=== PATIENT | female | born 1955 | race Caucasian/White ===

== ENCOUNTER 2017-09-13 07:41 | Day surgery (SDC) | payer MEDICARE, SELFPAY | END 2017-09-13 13:25 | disposition home or self-care (01) | PROVIDERS: Family Provider Family Medicine; Visit Provider Podiatrist | DX: S92.355K Nondisplaced fracture of fifth metatarsal bone, left foot, subsequent encounter for fracture with nonunion (principal) | CPT/HCPCS: 28322; 73620; 73630; 76000; 96375; C1713; J2405 ==

== ENCOUNTER 2017-09-28 11:11 | Outpatient (POV) | payer MEDICARE, SELFPAY | END 2017-09-28 13:50 | disposition home or self-care (01) | PROVIDERS: Visit Provider Podiatrist | DX: Z98.890 Other specified postprocedural states (principal) | CPT/HCPCS: 99024; 73630 ==

== ENCOUNTER → 2017-10-18 09:10 | Outpatient (CLI) | payer MEDICARE, SELFPAY ==
--- NOTE | 2017-10-18 | XR_ITS ---
XR foot LT min 3V HISTORY: Follow-up fracture/ORIF ITS.REASON: S/P LEFT 5TH ME WOODALL FX ORIF ORDERING PHYSICIAN: Abbey Dale DPM PATIENT AGE: 61 years COMPARISON: 09/28/2017 FINDINGS: The cast has been removed. There is good alignment of the transverse fifth metatarsal fracture stabilized by a longitudinal screw. There is some developing callus formation. Fracture line however is still visible. IMPRESSION: Healing fifth metatarsal fracture with good alignment status post ORIF
== END ==
PROVIDERS: PCP Nurse Practitioner; Visit Provider Podiatrist
DX: S92.355P Nondisplaced fracture of fifth metatarsal bone, left foot, subsequent encounter for fracture with malunion (principal)
CPT/HCPCS: 73630

== ENCOUNTER → 2017-11-06 10:43 | Outpatient (CLI) | payer MEDICARE, SELFPAY ==
[2017-11-06 11:09] LABS: Basophils % 0.4 % (0.1-2.0); Eosinophils # 0.1 K/mm3 (0.0-0.4); Eosinophils % 1.7 % (0.1-12.0); Hematocrit 35.3 % (37.0-47.0); Hemoglobin 11.5 g/dL (12.2-16.2); Lymphocytes # 0.9 K/mm3 (0.7-4.5); Lymphocytes % 16.9 K/mm3 (10-50); Mean Corpuscular HGB Conc 32.6 g/dL (31.8-35.4); Mean Corpuscular Hemoglobin 32.5 pg (27.0-31.2); Mean Corpuscular Volume 99.7 fl (81-99); Mean Platelet Volume 8.1 fl (7.4-10.4); Monocytes # 0.4 K/mm3 (0.1-1.0); Neutrophils % 73.1 % (37.0-80.0); Platelet Count 211 K/mm3 (142-424); Red Blood Count 3.54 M/mm3 (4.20-5.40); White Blood Count 5.4 K/mm3 (4.8-10.8)
[2017-11-06 12:30] LABS: Alanine Aminotransferase 72 U/L (12-78); Albumin Level 3.5 gm/dL (3.4-5.0); Albumin/Globulin Ratio 1.5 (1.1-1.8); Alkaline Phosphatase 96 U/L (46-116); Anion Gap 10.6 mEq/L (5-15); Aspartate Amino Transferase 58 U/L (15-37); Bilirubin,Total 0.4 mg/dL (0.2-1.0); Blood Urea Nitrogen 10 mg/dL (7-18); Calcium 8.3 mg/dL (8.5-10.1); Carbon Dioxide 26 mmol/L (21.0-32.0); Chloride 105 mmol/L (98-107); Creatinine,Serum 0.57 mg/dL (0.55-1.02); Estimated Glomerular Filt Rate 108 ml/min (>60); GFR (African American) 130 ML/MIN (>60); Globulin 2.4 gm/dl (1.3-3.2); Glucose 94 mg/dL (74-106); Potassium 4.6 mmoL/L (3.5-5.1); Sodium 137 mmol/L (136-145); Total Protein,Serum 5.9 gm/dL (6.4-8.2)
[2017-11-06 12:31] LABS: C-Reactive Protein < 0.2 mg/L (0.0-0.9)
[2017-11-06 12:57] LABS: Erythrocyte Sedimentation Rate 20 mm/hr (0-30)
== END ==
PROVIDERS: PCP Nurse Practitioner Family; Visit Provider Internal Medicine
DX: M06.09 Rheumatoid arthritis without rheumatoid factor, multiple sites (principal); Z79.899 Other long term (current) drug therapy
CPT/HCPCS: 36415; 80053; 85025; 85651; 86140

== ENCOUNTER → 2017-11-20 09:01 | Outpatient (CLI) | payer MEDICARE, SELFPAY ==
--- NOTE | 2017-11-20 09:30 | XR_ITS ---
XR foot LT min 3V HISTORY: Follow-up fracture/ORIF ITS.REASON: POST OP FX 3 MONTHS AGO, JURGEN'S FX ORDERING PHYSICIAN: Abbey Dale DPM PATIENT AGE: 61 years COMPARISON: 10/18/2017 FINDINGS: No change longitudinal fixation screw in the proximal aspect of the fifth metatarsal stabilizing transverse fracture at the base of the fifth metatarsal. There is developing callus formation with decrease prominence of the fracture line. Air is good alignment without displacement. IMPRESSION: Healing nondisplaced fracture status post ORIF fifth metatarsal
== END ==
PROVIDERS: Visit Provider Podiatrist
DX: Z98.890 Other specified postprocedural states (principal)
CPT/HCPCS: 73630

== ENCOUNTER 2017-11-28 10:00 | Outpatient (RCR) | payer MEDICARE, SELFPAY | END 2017-11-28 10:01 | disposition home or self-care (01) | LOC: PT 10:00 | PROVIDERS: PCP Nurse Practitioner; Visit Provider Orthopaedic Surgery | DX: M47.15 Other spondylosis with myelopathy, thoracolumbar region (principal) | CPT/HCPCS: 97010; 97012; 97014; 97035; 97110; 97140; 97162; G0283 ==

== ENCOUNTER 2017-11-28 10:30 | Outpatient (RCR) | payer MEDICARE, SELFPAY ==
--- NOTE | 2017-11-21 11:20 | HMH.PTOPEV ---
Rehab Outpatient Evaluation Rehab OP Evaluation Start: 11/21/17 11:08 Freq: Status: Active Protocol: Document 11/21/17 11:09 KENCECILE (Rec: 11/21/17 11:20 KELSIE [id number]) Electronically Signed By Stef Rosales PT 11/21/17 11:09 Outpatient Therapy Subjective History Subjective History This is the initial Physical Therapy evaluation for Kassandra Manning. Pt is a 61 y/o female referred to PT for c/o R sided ankle/Lower Leg pain. Pt reports pain in R ankle began insidiously ~ 1 month ago. Pt reports she had sx on L foot at end of and just came out of CAM walker earlier this week. Pt reports she is being seen by PT for R side Sciatic/lumbar radicular pain. Chief Complaint Pain Symptom Type Ache Throb Sharp Symptoms Relieved By Rest/Positioning Symptoms Aggravated By Standing Physical Activity Walking Prior Functional Limitations None Current Functional Limitations Housework Standing Recreation Activity Walking Stairs Symptom Description Constant and Continuous Ankle/Foot Eval Gait Observation General Gait Pattern Observation Antalgic Gait Assistive Device Ambulation Assistive Device None Palpation Tenderness right Ankle/Foot Palpation Findings Tenderness Ankle/Foot Palpation Overall Comment TTP along peroneal tnadon and muscle belly ATF TTP negative PTF TTP negative CF TTP negative Deltoid ligament TTP negative ROM Ankle/Foot ROM Reason Not Measured Within Functional Limits Accessory Movements Ankle Accessory Movements that Elicit Fibular Dorsal [place] Symptoms MMT right Ankle Dorsiflexion Strength Grade 4 Good Ankle Plantarflexion Strength Grade 4 Good Foot Eversion Strength Grade 4 Good Foot Inversion Strength Grade 4 Good Special Tests Ankle Anterior Drawer Test Negative Right Ankle Eversion Test Negative Right Ankle Inversion (supination) Test Positive Right Neuro tests normal sensation to monofilament Yes Outpatient Therapy Assessment Impairments Problems/Imp
== END 2017-11-28 10:31 | disposition home or self-care (01) ==
LOC: PT 10:30
PROVIDERS: PCP Podiatrist; Visit Provider Podiatrist
DX: Z98.890 Other specified postprocedural states (principal)
CPT/HCPCS: 97033; 97035; 97110

== ENCOUNTER → 2017-12-07 10:49 | Outpatient (CLI) | payer MEDICARE, SELFPAY ==
--- NOTE | 2017-12-07 10:53 | MM_ITS ---
MM Dig screening mamm BI w/CAD CAD Screening COMPARISON: Digital mammograms 03/24/2014 and 05/06/2015 INDICATION: There is a history of breast cancer in a patient maternal grandmother. TECHNIQUE: Standard CC and MLO images were obtained. R2 CAD reviewed. FINDINGS: The breasts are composed primarily of fat with moderate fibroglandular densities in the subareolar regions bilaterally. Again is a stable asymmetric density upper outer quadrant right breast. A couple of benign-appearing calcifications in each breast. There is no suspicious lesion and there are no suspicious microcalcifications. IMPRESSION: Fibrofatty parenchyma with no suspicious lesion seen recommend yearly follow-up BI-RADS Category: 2 Benign Finding(s) RECOMMENDED FOLLOW-UP: 1YR - 1 YEAR FOLLOW-UP (A letter has been sent to the patient regarding results of the study.)
== END ==
PROVIDERS: PCP Podiatrist; Visit Provider Nurse Practitioner
DX: Z12.31 Encounter for screening mammogram for malignant neoplasm of breast (principal)
CPT/HCPCS: 77067

== ENCOUNTER → 2018-01-15 09:10 | Outpatient (CLI) | payer MEDICARE, SELFPAY ==
--- NOTE | 2018-01-15 09:15 | XR_ITS ---
XR foot wt bearing LT 3V COMPARISON: Left foot 11/20/2017 HISTORY: Follow-up ORIF of fracture TECHNIQUE: AP lateral and oblique views FINDINGS: The threaded fixation screw is again seen traversing the linear nondisplaced fracture base of fifth metatarsal. Alignment is anatomic. There now appears be bony bridging of the fracture line at the lateral aspect of the fracture, the medial aspect of the fracture line still visible. Again noted is a slightly flat plantar arch. IMPRESSION: Interval additional healing of the fracture base fifth metatarsal
== END ==
PROVIDERS: Visit Provider Podiatrist
DX: Z98.890 Other specified postprocedural states (principal)
CPT/HCPCS: 73630

== ENCOUNTER → 2018-02-07 12:11 | Outpatient (CLI) | payer MEDICARE, SELFPAY ==
[2018-02-07 12:34] LABS: Basophils % 0.4 % (0.1-2.0); Eosinophils # 0.1 K/mm3 (0.0-0.4); Eosinophils % 1.5 % (0.1-12.0); Hematocrit 38.1 % (37.0-47.0); Hemoglobin 12.3 g/dL (12.2-16.2); Lymphocytes # 0.7 K/mm3 (0.7-4.5); Lymphocytes % 14.6 K/mm3 (10-50); Mean Corpuscular HGB Conc 32.2 g/dL (31.8-35.4); Mean Corpuscular Hemoglobin 32.5 pg (27.0-31.2); Monocytes # 0.4 K/mm3 (0.1-1.0); Monocytes % 7.7 % (1.7-9.3); Neutrophils # 3.8 K/mm3 (1.8-7.8); Neutrophils % 75.8 % (37.0-80.0); Platelet Count 223 K/mm3 (142-424); Red Blood Count 3.77 M/mm3 (4.20-5.40); Red Cell Distribution Width 13.6 % (11.5-17.5)
[2018-02-07 13:44] LABS: Erythrocyte Sedimentation Rate 37 mm/hr (0-30)
[2018-02-07 15:14] LABS: Alanine Aminotransferase 37 U/L (12-78); Albumin Level 3.6 gm/dL (3.4-5.0); Albumin/Globulin Ratio 1.3 (1.1-1.8); Alkaline Phosphatase 128 U/L (46-116); Aspartate Amino Transferase 29 U/L (15-37); Bilirubin,Total 0.3 mg/dL (0.2-1.0); Blood Urea Nitrogen 8 mg/dL (7-18); Calcium 8.7 mg/dL (8.5-10.1); Carbon Dioxide 28 mmol/L (21.0-32.0); Chloride 107 mmol/L (98-107); Creatinine,Serum 0.58 mg/dL (0.55-1.02); Estimated Glomerular Filt Rate 105 ml/min (>60); GFR (African American) 127 ML/MIN (>60); Globulin 2.7 gm/dl (1.3-3.2); Glucose 86 mg/dL (74-106); Sodium 144 mmol/L (136-145); Total Protein,Serum 6.3 gm/dL (6.4-8.2)
[2018-02-07 15:21] LABS: C-Reactive Protein < 0.2 mg/L (0.0-0.9)
== END ==
PROVIDERS: Visit Provider Internal Medicine
DX: M06.09 Rheumatoid arthritis without rheumatoid factor, multiple sites (principal); Z79.899 Other long term (current) drug therapy
CPT/HCPCS: 36415; 80053; 85025; 85651; 86140

== ENCOUNTER → 2018-03-01 13:21 | Outpatient (POV) | payer MEDICARE, SELFPAY | PROVIDERS: Visit Provider Neurological Surgery | DX: Z00.00 Encounter for general adult medical examination without abnormal findings (principal) ==

== ENCOUNTER → 2018-05-21 08:02 | Outpatient (CLI) | payer MEDICARE, SELFPAY ==
[2018-05-21 08:18] LABS: Basophils % 0.4 % (0.1-2.0); Eosinophils # 0.1 K/mm3 (0.0-0.4); Eosinophils % 1.6 % (0.1-12.0); Hematocrit 35.8 % (37.0-47.0); Hemoglobin 11.7 g/dL (12.2-16.2); Lymphocytes # 0.9 K/mm3 (0.7-4.5); Lymphocytes % 14.5 K/mm3 (10-50); Mean Corpuscular HGB Conc 32.6 g/dL (31.8-35.4); Mean Corpuscular Hemoglobin 30.9 pg (27.0-31.2); Mean Corpuscular Volume 94.6 fl (81-99); Mean Platelet Volume 8.1 fl (7.4-10.4); Monocytes # 0.4 K/mm3 (0.1-1.0); Monocytes % 5.8 % (1.7-9.3); Neutrophils # 4.9 K/mm3 (1.8-7.8); Neutrophils % 77.6 % (37.0-80.0); Platelet Count 218 K/mm3 (142-424); Red Blood Count 3.78 M/mm3 (4.20-5.40); Red Cell Distribution Width 14.4 % (11.5-17.5); White Blood Count 6.4 K/mm3 (4.8-10.8)
[2018-05-21 09:07] LABS: Alanine Aminotransferase 42 U/L (12-78); Albumin Level 3.3 gm/dL (3.4-5.0); Albumin/Globulin Ratio 1.1 (1.1-1.8); Alkaline Phosphatase 161 U/L (46-116); Anion Gap 11.5 mEq/L (5-15); Aspartate Amino Transferase 31 U/L (15-37); Bilirubin,Total 0.4 mg/dL (0.2-1.0); Blood Urea Nitrogen 9 mg/dL (7-18); C-Reactive Protein 1.2 mg/L (0.0-0.9); Calcium 8.8 mg/dL (8.5-10.1); Carbon Dioxide 25 mmol/L (21.0-32.0); Chloride 110 mmol/L (98-107); Estimated Glomerular Filt Rate 101 ml/min (>60); GFR (African American) 123 ML/MIN (>60); Globulin 2.9 gm/dl (1.3-3.2); Glucose 89 mg/dL (74-106); Potassium 3.5 mmoL/L (3.5-5.1); Sodium 143 mmol/L (136-145); Total Protein,Serum 6.2 gm/dL (6.4-8.2)
[2018-05-21 09:13] LABS: Erythrocyte Sedimentation Rate 71 mm/hr (0-30)
== END ==
PROVIDERS: Visit Provider Internal Medicine
DX: M06.09 Rheumatoid arthritis without rheumatoid factor, multiple sites (principal); Z79.899 Other long term (current) drug therapy
CPT/HCPCS: 36415; 80053; 85025; 85651; 86140

== ENCOUNTER → 2018-07-27 10:20 | Outpatient (CLI) | payer MEDICARE, SELFPAY ==
[2018-07-27 10:39] LABS: Basophils % 0.5 % (0.1-2.0); Eosinophils # 0.1 K/mm3 (0.0-0.4); Eosinophils % 1.3 % (0.1-12.0); Hematocrit 36.6 % (37.0-47.0); Hemoglobin 11.8 g/dL (12.2-16.2); Lymphocytes # 1.9 K/mm3 (0.7-4.5); Lymphocytes % 29.2 K/mm3 (10-50); Mean Corpuscular HGB Conc 32.2 g/dL (31.8-35.4); Mean Corpuscular Hemoglobin 29.7 pg (27.0-31.2); Mean Corpuscular Volume 92.4 fl (81-99); Monocytes # 0.3 K/mm3 (0.1-1.0); Monocytes % 5.1 % (1.7-9.3); Neutrophils # 4.2 K/mm3 (1.8-7.8); Neutrophils % 63.9 % (37.0-80.0); Platelet Count 257 K/mm3 (142-424); Red Blood Count 3.97 M/mm3 (4.20-5.40); Red Cell Distribution Width 16.7 % (11.5-17.5); White Blood Count 6.6 K/mm3 (4.8-10.8)
[2018-07-27 11:28] LABS: Alanine Aminotransferase 63 U/L (12-78); Albumin Level 3.7 gm/dL (3.4-5.0); Albumin/Globulin Ratio 1.3 (1.1-1.8); Alkaline Phosphatase 137 U/L (46-116); Anion Gap 8.4 mEq/L (5-15); Aspartate Amino Transferase 30 U/L (15-37); Bilirubin,Total 0.5 mg/dL (0.2-1.0); Blood Urea Nitrogen 11 mg/dL (7-18); Calcium 8.5 mg/dL (8.5-10.1); Carbon Dioxide 32 mmol/L (21.0-32.0); Chloride 101 mmol/L (98-107); Creatinine,Serum 0.59 mg/dL (0.55-1.02); Estimated Glomerular Filt Rate 103 ml/min (>60); GFR (African American) 125 ML/MIN (>60); Globulin 2.8 gm/dl (1.3-3.2); Glucose 99 mg/dL (74-106); Potassium 4.4 mmoL/L (3.5-5.1); Sodium 137 mmol/L (136-145); Total Protein,Serum 6.5 gm/dL (6.4-8.2)
[2018-07-27 11:31] LABS: C-Reactive Protein < 0.2 mg/L (0.0-0.9)
[2018-07-27 12:16] LABS: Erythrocyte Sedimentation Rate 26 mm/hr (0-30)
== END ==
PROVIDERS: PCP Nurse Practitioner; Visit Provider Internal Medicine
DX: Z79.899 Other long term (current) drug therapy (principal); M06.09 Rheumatoid arthritis without rheumatoid factor, multiple sites
CPT/HCPCS: 36415; 80053; 85025; 85651; 86140

== ENCOUNTER → 2018-10-29 09:21 | Outpatient (CLI) | payer MEDICARE, SELFPAY ==
[2018-10-29 09:36] LABS: Basophils % 0.4 % (0.1-2.0); Eosinophils # 0.1 K/mm3 (0.0-0.4); Eosinophils % 1.1 % (0.1-12.0); Hematocrit 37.1 % (37.0-47.0); Hemoglobin 11.8 g/dL (12.2-16.2); Lymphocytes # 0.9 K/mm3 (0.7-4.5); Lymphocytes % 20.7 % (10-50); Mean Corpuscular HGB Conc 31.9 g/dL (31.8-35.4); Mean Corpuscular Volume 100.5 fl (81-99); Monocytes # 0.3 K/mm3 (0.1-1.0); Monocytes % 6.1 % (1.7-9.3); Neutrophils # 3.1 K/mm3 (1.8-7.8); Neutrophils % 71.7 % (37.0-80.0); Platelet Count 250 K/mm3 (142-424); Red Blood Count 3.69 M/mm3 (4.20-5.40); Red Cell Distribution Width 15.2 % (11.5-17.5); White Blood Count 4.4 K/mm3 (4.8-10.8)
[2018-10-29 10:36] LABS: Alanine Aminotransferase 647 U/L (12-78); Albumin Level 3.7 gm/dL (3.4-5.0); Albumin/Globulin Ratio 1.3 (1.1-1.8); Alkaline Phosphatase 249 U/L (46-116); Anion Gap 12.9 mEq/L (5-15); Aspartate Amino Transferase 426 U/L (15-37); Bilirubin,Total 0.7 mg/dL (0.2-1.0); Blood Urea Nitrogen 12 mg/dL (7-18); C-Reactive Protein 1.5 mg/L (0.0-0.9); Calcium 8.6 mg/dL (8.5-10.1); Carbon Dioxide 30 mmol/L (21.0-32.0); Chloride 100 mmol/L (98-107); Creatinine,Serum 0.67 mg/dL (0.55-1.02); Estimated Glomerular Filt Rate 89 ml/min (>60); GFR (African American) 108 ML/MIN (>60); Globulin 2.9 gm/dl (1.3-3.2); Glucose 118 mg/dL (74-106); Potassium 3.9 mmoL/L (3.5-5.1); Sodium 139 mmol/L (136-145); Total Protein,Serum 6.6 gm/dL (6.4-8.2)
[2018-10-29 10:51] LABS: Erythrocyte Sedimentation Rate 41 mm/hr (0-30)
== END ==
PROVIDERS: Visit Provider Internal Medicine
DX: Z79.899 Other long term (current) drug therapy (principal); M06.9 Rheumatoid arthritis, unspecified
CPT/HCPCS: 36415; 80053; 85025; 85651; 86140

== ENCOUNTER → 2018-11-12 09:28 | Outpatient (CLI) | payer MEDICARE, SELFPAY ==
[2018-11-12 09:48] LABS: Basophils % 0.5 % (0.1-2.0); Eosinophils # 0.1 K/mm3 (0.0-0.4); Hematocrit 35.9 % (37.0-47.0); Hemoglobin 11.2 g/dL (12.2-16.2); Lymphocytes # 1.2 K/mm3 (0.7-4.5); Lymphocytes % 22.5 % (10-50); Mean Corpuscular HGB Conc 31.2 g/dL (31.8-35.4); Mean Corpuscular Hemoglobin 31.9 pg (27.0-31.2); Mean Corpuscular Volume 102.3 fl (81-99); Mean Platelet Volume 8.3 fl (7.4-10.4); Monocytes # 0.4 K/mm3 (0.1-1.0); Monocytes % 8.5 % (1.7-9.3); Neutrophils # 3.5 K/mm3 (1.8-7.8); Neutrophils % 66.4 % (37.0-80.0); Platelet Count 219 K/mm3 (142-424); Red Blood Count 3.51 M/mm3 (4.20-5.40); Red Cell Distribution Width 14.6 % (11.5-17.5); White Blood Count 5.2 K/mm3 (4.8-10.8)
[2018-11-12 10:35] LABS: Erythrocyte Sedimentation Rate 38 mm/hr (0-30)
[2018-11-12 10:56] LABS: Alanine Aminotransferase 48 U/L (12-78); Albumin Level 3.4 gm/dL (3.4-5.0); Albumin/Globulin Ratio 1.3 (1.1-1.8); Alkaline Phosphatase 157 U/L (46-116); Anion Gap 12.1 mEq/L (5-15); Aspartate Amino Transferase 25 U/L (15-37); Bilirubin,Total 0.4 mg/dL (0.2-1.0); Blood Urea Nitrogen 10 mg/dL (7-18); C-Reactive Protein 0.6 mg/L (0.0-0.9); Calcium 8.8 mg/dL (8.5-10.1); Carbon Dioxide 27 mmol/L (21.0-32.0); Chloride 99 mmol/L (98-107); Creatinine,Serum 0.57 mg/dL (0.55-1.02); Estimated Glomerular Filt Rate 107 ml/min (>60); GFR (African American) 130 ML/MIN (>60); Globulin 2.7 gm/dl (1.3-3.2); Glucose 92 mg/dL (74-106); Potassium 4.1 mmoL/L (3.5-5.1); Sodium 134 mmol/L (136-145); Total Protein,Serum 6.1 gm/dL (6.4-8.2)
== END ==
PROVIDERS: Visit Provider Internal Medicine
DX: R79.89 Other specified abnormal findings of blood chemistry (principal); Z79.899 Other long term (current) drug therapy
CPT/HCPCS: 36415; 80053; 85025; 85651; 86140

== ENCOUNTER → 2018-11-27 11:04 | Outpatient (POV) | payer MEDICARE, SELFPAY | PROVIDERS: Visit Provider Dermatology | DX: Z00.00 Encounter for general adult medical examination without abnormal findings (principal) ==

== ENCOUNTER → 2018-12-06 11:19 | Outpatient (CLI) | payer MEDICARE, SELFPAY ==
[2018-12-06 11:44] LABS: Basophils % 0.4 % (0.1-2.0); Eosinophils # 0.1 K/mm3 (0.0-0.4); Eosinophils % 1.3 % (0.1-12.0); Hematocrit 38.3 % (37.0-47.0); Hemoglobin 12.1 g/dL (12.2-16.2); Lymphocytes # 1.5 K/mm3 (0.7-4.5); Lymphocytes % 27.2 % (10-50); Mean Corpuscular HGB Conc 31.6 g/dL (31.8-35.4); Mean Corpuscular Hemoglobin 30.9 pg (27.0-31.2); Mean Corpuscular Volume 97.6 fl (81-99); Mean Platelet Volume 8.7 fl (7.4-10.4); Monocytes # 0.4 K/mm3 (0.1-1.0); Monocytes % 6.3 % (1.7-9.3); Neutrophils # 3.6 K/mm3 (1.8-7.8); Neutrophils % 64.7 % (37.0-80.0); Platelet Count 273 K/mm3 (142-424); Red Blood Count 3.93 M/mm3 (4.20-5.40); Red Cell Distribution Width 13.8 % (11.5-17.5); White Blood Count 5.6 K/mm3 (4.8-10.8)
[2018-12-06 13:05] LABS: Alanine Aminotransferase 19 U/L (12-78); Albumin Level 3.8 gm/dL (3.4-5.0); Albumin/Globulin Ratio 1.4 (1.1-1.8); Alkaline Phosphatase 123 U/L (46-116); Anion Gap 11.9 mEq/L (5-15); Aspartate Amino Transferase 13 U/L (15-37); Bilirubin,Total 0.4 mg/dL (0.2-1.0); Blood Urea Nitrogen 19 mg/dL (7-18); C-Reactive Protein 0.3 mg/L (0.0-0.9); Calcium 8.6 mg/dL (8.5-10.1); Carbon Dioxide 30 mmol/L (21.0-32.0); Chloride 100 mmol/L (98-107); Estimated Glomerular Filt Rate 63 ml/min (>60); GFR (African American) 77 ML/MIN (>60); Globulin 2.8 gm/dl (1.3-3.2); Glucose 95 mg/dL (74-106); Potassium 3.9 mmoL/L (3.5-5.1); Sodium 138 mmol/L (136-145); Total Protein,Serum 6.6 gm/dL (6.4-8.2)
[2018-12-06 13:58] LABS: Erythrocyte Sedimentation Rate 42 mm/hr (0-30)
== END ==
PROVIDERS: Visit Provider Internal Medicine
DX: M06.09 Rheumatoid arthritis without rheumatoid factor, multiple sites (principal); Z79.899 Other long term (current) drug therapy
CPT/HCPCS: 36415; 80053; 85025; 85651; 86140

== ENCOUNTER 2018-12-13 10:27 | Outpatient (RCR) | payer MEDICARE, SELFPAY | END 2018-12-13 10:30 | disposition home or self-care (01) | LOC: OT 10:27 | PROVIDERS: Visit Provider Orthopaedic Surgery | DX: M79.641 Pain in right hand (principal); M25.531 Pain in right wrist | CPT/HCPCS: 97763 ==

== ENCOUNTER → 2018-12-19 09:12 | Outpatient (CLI) | payer MEDICARE, SELFPAY ==
--- NOTE | 2018-12-19 09:17 | US_ITS ---
US abdomen limited History: Ordering Physician:Heraclio Huffman Patient Age: 62 years Comparison:None Findings: Pancreas:Poorly demonstrated due to overlying bowel gas and patient body habitus Liver:Unremarkable. No obvious mass or abnormal fluid collection. No ductal dilatation. There are scattered heterogeneous areas of slight increased echogenicity in the liver consistent with hepatic steatosis. There is appropriate direction of blood flow within a nondilated portal vein Right Kidney:Unremarkable. Normal size and echogenicity. No hydronephrosis Gallbladder:Postcholecystectomy changes. Common bile duct is slightly prominent at 7 mm but may be physiologic response related to the previous cholecystectomy. Impression: 1. Mild fatty liver. 2. Prior cholecystectomy
== END ==
PROVIDERS: PCP Nurse Practitioner; Visit Provider Internal Medicine
DX: K76.0 Fatty (change of) liver, not elsewhere classified (principal); R94.5 Abnormal results of liver function studies; Z79.899 Other long term (current) drug therapy
CPT/HCPCS: 76705

== ENCOUNTER → 2018-12-21 08:59 | Outpatient (CLI) | payer MEDICARE, SELFPAY ==
--- NOTE | 2018-12-21 09:01 | MM_ITS ---
MM Dig screening mamm BI w/CAD CAD Screening COMPARISON: Digital mammograms with CAD 12/07/2017 and 05/06/2015 INDICATION: There is a history of breast cancer patient maternal grandmother. TECHNIQUE: Standard CC and MLO images were obtained. R2 CAD reviewed. FINDINGS: The breasts are composed primarily of fat with mild/moderate fibroglandular densities in the subareolar regions bilaterally. Again noted is an asymmetric area of glandular tissue upper outer quadrant right breast. There is a benign-appearing calcification in each breast. There is no suspicious lesion and no suspicious microcalcifications. There is faint arterial calcification left breast. IMPRESSION: Fibrofatty parenchyma with no suspicious lesion seen BI-RADS Category: 2 Benign Finding(s) RECOMMENDED FOLLOW-UP: 1YR - 1 YEAR FOLLOW-UP (A letter has been sent to the patient regarding results of the study.)
== END ==
PROVIDERS: PCP Nurse Practitioner; Visit Provider Nurse Practitioner Obstetrics & Gynecology
DX: Z12.31 Encounter for screening mammogram for malignant neoplasm of breast (principal)
CPT/HCPCS: 77067

== ENCOUNTER → 2019-01-01 10:42 | Outpatient (CLI) | payer MEDICARE, SELFPAY ==
--- NOTE | 2019-01-01 10:44 | CA_ITS ---
PROCEDURE: 2-D M-mode and color Doppler study INDICATIONS FOR THE TEST: Chest pain COPD Heart Murmur Tobacco Smoking Palpitations Fatigue Syncope Edema+ Hypertension+Diabetes Mellitus Rheumatic Fever SOB NARANJO Obesity Hyperlipidemia+ Family History HD Additional History hx rheumatic fever PATIENT INFORMATION HEIGHT: 63 WEIGHT:271 GENDER: Female B/P:156/81 2-D/M-MODE INTERPRETATION: 2-D MEASUREMENTS OBSERVED VALUES IN CMS Right Ventricular Dimension (RVDd) 2.4 Interventricular Septum (Thickness)(IVsd) 1.0 Left Ventricular Internal Dimensions(LVIDd) 5.0 Left Ventricular Posterior Wall (Thickness)(LVPWd) 1.2 Aortic Root 2.8 Aortic Cusp Separation 2.3 Left Atrial Dimensions (LAD) 4.2 2D 1. Left atrium is mildly enlarged, left ventricle is normal size, mild concentric left ventricular hypertrophy, visually estimated ejection fraction of 55% with no regional wall motion abnormality. 2. The right atrium and right ventricle are qualitatively mildly enlarged with normal contractility. 3. The valve is minimally thickened and calcified. 4. The mitral and tricuspid valvular grossly normal. 5. The pulmonic valve is poorly visualized. 6. No significant pericardial effusion noted. DOPPLER INTERROGATION: Doppler interrogation of the aortic, mitral and tricuspid valvular presence of mild aortic, mild mitral and tricuspid regurgitation, tricuspid regurgitation jet velocity is inadequate for calculation of the right ventricular systolic pressure, grade 1 diastolic dysfunction seen with tissue Doppler evidence of raised left atrial pressure, inferior vena cava is mildly dilated without significant inspiratory collapse. CONCLUSION: 1. Mild biatrial enlargement, normal left ventricular size, mild concentric left ventricular hypertrophy visually estimated ejection fraction of 55% with no regional wall motion abnormality, grade 1 diastolic dysfunction seen with tissue Doppler evidence of raised left atrial pressure. 2. Mildly enlarged right ventricle with normal contractility. 3. Mild aortic, mild mitral and tricuspid regurgitation. Inferior vena cava is mildly dilated without significant inspiratory collapse.
--- NOTE | 2019-01-01 10:44 | NM_ITS ---
History and Indications: History of RI ,dysrhythmia, hypertension, hyperlipidemia family history, shortness of breath and syncope Procedure: Patient received 0.4 mg of intravenous Lexiscan, resting heart rate was 55 bpm resting blood pressure 142/77, with Lexiscan maximum heart rate achieved was 83 bpm which is less than 85% of the maximum predicted heart rate and a blood pressure was 157/77. With Lexiscan patient complained of shortness of breath Electrocardiogram: Resting electrocardiogram showed sinus bradycardia nonspecific ST-T changes, with Lexiscan there is less than 1.[address] segment depression noted from the baseline EKG. The EKG portion of the Lexiscan Myoview is nondiagnostic. Cardiac stress and resting SPECT images: Cardiac stress and the suspect images were obtained using technetium 99 Myoview 32.1 mCi stress and 10.7 mCi at rest. Gated SPECT further analysis of segmental wall motion and calculation of the ejection fraction also done. Cardiac stress and resting SPECT images show reversible ischemia involving the anteroseptal wall, computer derived ejection fraction is 62% with no regional wall motion abnormality, right ventricle is normal size and contractility. Conclusion: 1. The EKG portion of the Lexiscan Myoview is nondiagnostic. 2. Scintigraphic evidence of mild reversible ischemia involving the anteroseptal wall. Computer derived ejection fraction is 60% with no regional wall motion abnormality, right ventricle is normal size and contractility. 3. Abnormal Lexiscan Myoview study.
== END ==
PROVIDERS: PCP Nurse Practitioner; Visit Provider Internal Medicine
DX: R07.9 Chest pain, unspecified (principal)
CPT/HCPCS: 78452; 93017; 93306; A9502; J2785

== ENCOUNTER → 2019-02-11 14:38 | Outpatient (CLI) | payer MEDICARE, SELFPAY ==
[2019-02-11 15:35] LABS: Basophils % 0.5 % (0.1-2.0); Eosinophils % 0.1 % (0.1-12.0); Hematocrit 33.9 % (37.0-47.0); Lymphocytes # 1.3 K/mm3 (0.7-4.5); Lymphocytes % 26.6 % (10-50); Mean Corpuscular HGB Conc 32.3 g/dL (31.8-35.4); Mean Corpuscular Hemoglobin 29.4 pg (27.0-31.2); Mean Corpuscular Volume 90.8 fl (81-99); Mean Platelet Volume 7.5 fl (7.4-10.4); Monocytes # 0.3 K/mm3 (0.1-1.0); Monocytes % 5.2 % (1.7-9.3); Neutrophils # 3.2 K/mm3 (1.8-7.8); Neutrophils % 67.7 % (37.0-80.0); Platelet Count 216 K/mm3 (142-424); Red Blood Count 3.73 M/mm3 (4.20-5.40); Red Cell Distribution Width 13.8 % (11.5-17.5); White Blood Count 4.8 K/mm3 (4.8-10.8)
[2019-02-11 15:59] LABS: Alanine Aminotransferase 22 U/L (12-78); Albumin Level 3.6 gm/dL (3.4-5.0); Alkaline Phosphatase 90 U/L (46-116); Aspartate Amino Transferase 17 U/L (15-37); Bilirubin,Direct 0.1 mg/dL (0.0-0.2); Bilirubin,Indirect 0.4 mg/dL (0.0-0.9); Bilirubin,Total 0.5 mg/dL (0.2-1.0); Cholesterol 174 mg/dL (140-200); HDL Cholesterol 87 mg/dL (29-89); LDL Cholesterol 79 mg/dL (0-130); Total Protein,Serum 6.4 gm/dL (6.4-8.2); Triglycerides 38 mg/dL (30-200); VLDL Cholesterol 8 mg/dL (0-40)
[2019-02-11 16:00] LABS: Alanine Aminotransferase 22 U/L (12-78); Albumin Level 3.6 gm/dL (3.4-5.0); Albumin/Globulin Ratio 1.3 (1.1-1.8); Alkaline Phosphatase 90 U/L (46-116); Anion Gap 9.9 mEq/L (5-15); Aspartate Amino Transferase 15 U/L (15-37); Bilirubin,Total 0.5 mg/dL (0.2-1.0); Blood Urea Nitrogen 12 mg/dL (7-18); Calcium 8.4 mg/dL (8.5-10.1); Carbon Dioxide 28 mmol/L (21.0-32.0); Chloride 102 mmol/L (98-107); Creatinine,Serum 0.66 mg/dL (0.55-1.02); Estimated Glomerular Filt Rate 90 ml/min (>60); GFR (African American) 109 ML/MIN (>60); Globulin 2.7 gm/dl (1.3-3.2); Glucose 120 mg/dL (74-106); Potassium 3.9 mmoL/L (3.5-5.1); Sodium 136 mmol/L (136-145); Total Protein,Serum 6.3 gm/dL (6.4-8.2)
[2019-02-11 16:09] LABS: C-Reactive Protein < 0.2 mg/L (0.0-0.9)
[2019-02-11 16:39] LABS: Erythrocyte Sedimentation Rate 31 mm/hr (0-30)
== END ==
PROVIDERS: PCP Internal Medicine; Visit Provider Internal Medicine Cardiovascular Disease
DX: I20.9 Angina pectoris, unspecified (principal); E78.5 Hyperlipidemia, unspecified; I10 Essential (primary) hypertension; R60.9 Edema, unspecified
CPT/HCPCS: 36415; 80053; 80061; 80076; 85025; 85651; 86140

== ENCOUNTER → 2019-04-01 10:21 | Outpatient (CLI) | payer MEDICARE, SELFPAY ==
[2019-04-01 10:32] LABS: Basophils % 0.3 % (0.1-2.0); Hematocrit 33.3 % (37.0-47.0); Hemoglobin 10.6 g/dL (12.2-16.2); Lymphocytes # 0.9 K/mm3 (0.7-4.5); Lymphocytes % 18.7 % (10-50); Mean Corpuscular HGB Conc 31.9 g/dL (31.8-35.4); Mean Corpuscular Volume 87.8 fl (81-99); Mean Platelet Volume 8.3 fl (7.4-10.4); Monocytes # 0.3 K/mm3 (0.1-1.0); Monocytes % 6.5 % (1.7-9.3); Neutrophils # 3.7 K/mm3 (1.8-7.8); Neutrophils % 74.6 % (37.0-80.0); Platelet Count 220 K/mm3 (142-424); Red Blood Count 3.79 M/mm3 (4.20-5.40); Red Cell Distribution Width 14.2 % (11.5-17.5); White Blood Count 4.9 K/mm3 (4.8-10.8)
[2019-04-01 11:26] LABS: Erythrocyte Sedimentation Rate 52 mm/hr (0-30)
[2019-04-01 12:56] LABS: Chol/HDL Ratio 1.8 (1-3.5); Cholesterol 153 mg/dL (140-200); HDL Cholesterol 83 mg/dL (29-89); LDL Cholesterol 61 mg/dL (0-130); Triglycerides 44 mg/dL (30-200); VLDL Cholesterol 9 mg/dL (0-40)
[2019-04-01 12:57] LABS: Alanine Aminotransferase 19 U/L (12-78); Albumin Level 3.3 gm/dL (3.4-5.0); Albumin/Globulin Ratio 1.3 (1.1-1.8); Alkaline Phosphatase 83 U/L (46-116); Aspartate Amino Transferase 19 U/L (15-37); Bilirubin,Total 0.5 mg/dL (0.2-1.0); Blood Urea Nitrogen 9 mg/dL (7-18); Calcium 8.2 mg/dL (8.5-10.1); Carbon Dioxide 24 mmol/L (21.0-32.0); Chloride 104 mmol/L (98-107); Creatinine,Serum 0.62 mg/dL (0.55-1.02); Estimated Glomerular Filt Rate 97 ml/min (>60); GFR (African American) 118 ML/MIN (>60); Globulin 2.6 gm/dl (1.3-3.2); Glucose 91 mg/dL (74-106); Sodium 138 mmol/L (136-145); Total Protein,Serum 5.9 gm/dL (6.4-8.2)
[2019-04-01 12:58] LABS: C-Reactive Protein < 0.2 mg/L (0.0-0.9)
== END ==
PROVIDERS: Nurse Practitioner Family; Visit Provider Internal Medicine
DX: E78.2 Mixed hyperlipidemia (principal); Z79.899 Other long term (current) drug therapy
CPT/HCPCS: 36415; 80053; 80061; 85025; 85651; 86140

== ENCOUNTER → 2019-06-03 09:43 | Outpatient (CLI) | payer MEDICARE, SELFPAY ==
[2019-06-03 10:10] LABS: Basophils % 0.3 % (0.1-2.0); Hematocrit 35.2 % (37.0-47.0); Hemoglobin 11.3 g/dL (12.2-16.2); Lymphocytes % 21.7 % (10-50); Mean Corpuscular HGB Conc 32.1 g/dL (31.8-35.4); Mean Corpuscular Hemoglobin 30.2 pg (27.0-31.2); Mean Corpuscular Volume 94.1 fl (81-99); Mean Platelet Volume 7.8 fl (7.4-10.4); Monocytes # 0.3 K/mm3 (0.1-1.0); Monocytes % 7.3 % (1.7-9.3); Neutrophils # 3.2 K/mm3 (1.8-7.8); Neutrophils % 70.7 % (37.0-80.0); Platelet Count 258 K/mm3 (142-424); Red Blood Count 3.75 M/mm3 (4.20-5.40); Red Cell Distribution Width 14.8 % (11.5-17.5); White Blood Count 4.6 K/mm3 (4.8-10.8)
[2019-06-03 10:42] LABS: Erythrocyte Sedimentation Rate 47 mm/hr (0-30)
[2019-06-03 13:39] LABS: Alanine Aminotransferase 18 U/L (12-78); Albumin Level 3.3 gm/dL (3.4-5.0); Albumin/Globulin Ratio 1.3 (1.1-1.8); Alkaline Phosphatase 84 U/L (46-116); Anion Gap 13.2 mEq/L (5-15); Aspartate Amino Transferase 17 U/L (15-37); Bilirubin,Total 0.3 mg/dL (0.2-1.0); Blood Urea Nitrogen 13 mg/dL (7-18); Calcium 8.8 mg/dL (8.5-10.1); Carbon Dioxide 30 mmol/L (21.0-32.0); Chloride 107 mmol/L (98-107); Estimated Glomerular Filt Rate 85 ml/min (>60); GFR (African American) 102 ML/MIN (>60); Globulin 2.6 gm/dl (1.3-3.2); Glucose 87 mg/dL (74-106); Potassium 4.2 mmoL/L (3.5-5.1); Sodium 146 mmol/L (136-145); Total Protein,Serum 5.9 gm/dL (6.4-8.2)
[2019-06-03 13:44] LABS: C-Reactive Protein < 0.2 mg/dL (0.0-0.9)
[2019-06-03 17:57] LABS: Chol/HDL Ratio 1.8 (1-3.5); Cholesterol 153 mg/dL (140-200); HDL Cholesterol 83 mg/dL (29-89); LDL Cholesterol 64 mg/dL (0-130); Triglycerides 30 mg/dL (30-200); VLDL Cholesterol 6 mg/dL (0-40)
[2019-06-03 21:36] LABS: Bilirubin,Direct 0.1 mg/dL (0.0-0.2)
== END ==
PROVIDERS: Internal Medicine; Internal Medicine Cardiovascular Disease; Visit Provider Internal Medicine
DX: E78.5 Hyperlipidemia, unspecified (principal); I10 Essential (primary) hypertension; Z79.899 Other long term (current) drug therapy; M06.9 Rheumatoid arthritis, unspecified
CPT/HCPCS: 36415; 80053; 80061; 82248; 85025; 85651; 86140

== ENCOUNTER → 2019-07-16 09:32 | Outpatient (POV) | payer MEDICARE, SELFPAY | PROVIDERS: Visit Provider Dermatology | DX: Z00.00 Encounter for general adult medical examination without abnormal findings (principal) ==

== ENCOUNTER → 2019-08-26 09:12 | Outpatient (CLI) | payer MEDICARE, SELFPAY ==
[2019-08-26 09:52] LABS: Basophils % 0.3 % (0.1-2.0); Eosinophils % 0.2 % (0.1-12.0); Hematocrit 36.7 % (37.0-47.0); Hemoglobin 11.6 g/dL (12.2-16.2); Lymphocytes # 0.9 K/mm3 (0.7-4.5); Mean Corpuscular HGB Conc 31.8 g/dL (31.8-35.4); Mean Corpuscular Hemoglobin 31.1 pg (27.0-31.2); Mean Corpuscular Volume 97.9 fl (81-99); Mean Platelet Volume 8.3 fl (7.4-10.4); Monocytes # 0.4 K/mm3 (0.1-1.0); Monocytes % 7.4 % (1.7-9.3); Neutrophils % 75.1 % (37.0-80.0); Platelet Count 255 K/mm3 (142-424); Red Blood Count 3.75 M/mm3 (4.20-5.40); Red Cell Distribution Width 14.2 % (11.5-17.5); White Blood Count 5.3 K/mm3 (4.8-10.8)
[2019-08-26 10:27] LABS: Erythrocyte Sedimentation Rate 26 mm/hr (0-30)
[2019-08-26 10:45] LABS: Alanine Aminotransferase 18 U/L (12-78); Albumin Level 3.6 gm/dL (3.4-5.0); Albumin/Globulin Ratio 1.4 (1.1-1.8); Alkaline Phosphatase 79 U/L (46-116); Anion Gap 13.1 mEq/L (5-15); Aspartate Amino Transferase 21 U/L (15-37); Bilirubin,Total 0.4 mg/dL (0.2-1.0); Blood Urea Nitrogen 11 mg/dL (7-18); Calcium 8.5 mg/dL (8.5-10.1); Carbon Dioxide 26 mmol/L (21.0-32.0); Chloride 103 mmol/L (98-107); Creatinine,Serum 0.48 mg/dL (0.55-1.02); Estimated Glomerular Filt Rate 131 ml/min (>60); GFR (African American) 158 ML/MIN (>60); Globulin 2.6 gm/dl (1.3-3.2); Glucose 97 mg/dL (74-106); Potassium 4.1 mmoL/L (3.5-5.1); Sodium 138 mmol/L (136-145); Total Protein,Serum 6.2 gm/dL (6.4-8.2)
[2019-08-26 10:46] LABS: C-Reactive Protein < 0.2 mg/dL (0.0-0.9)
== END ==
PROVIDERS: Visit Provider Internal Medicine
DX: M06.09 Rheumatoid arthritis without rheumatoid factor, multiple sites (principal); Z79.899 Other long term (current) drug therapy
CPT/HCPCS: 36415; 80053; 85025; 85651; 86140

== ENCOUNTER → 2019-09-23 13:07 | Outpatient (CLI) | payer MEDICARE, SELFPAY ==
--- NOTE | 2019-09-23 13:16 | XR_ITS ---
PROCEDURE: XR FOOT WT BEARING RT 3V CLINICAL INDICATION: pain in right foot COMPARISON: FTL3 FOOT-LT-3 VIEWS from 09/28/2017 [id number] XR foot LT min 3V from 10/18/2017 [id number] XR foot LT min 3V from 11/20/2017 [id number] XR foot wt bearing LT 3V from 01/15/2018 FINDINGS: There is a nondisplaced transverse fracture involving the proximal shaft of the 5th metatarsal. There is mild diffuse osteopenia. Mild hallux valgus with bunion formation and mild osteoarthritis of the 1st MTP joint along with osteoarthritic change at the talonavicular and navicular cuneiform joint. Small calcaneal spurs present in there is ossification along the distal aspect of the Achilles tendon. IMPRESSION: Nondisplaced fracture proximal shaft 5th metatarsal Dictated by: John Stone MD 09/24/2019 12:38 Electronically signed by John Stone MD in [place] 09/24/2019 12:38
--- NOTE | 2019-09-23 15:56 | XR_ITS ---
PROCEDURE: XR CHEST 2V CLINICAL HISTORY: COUGH/CONGESTION COMPARISON: CTAC CTA-CHEST from 10/11/2014 CXR CHEST(2 VIEWS-NOT PORTABLE) from 03/10/2015 CXR CHEST(2 VIEWS-NOT PORTABLE) from 01/28/2016 CXR CHEST(2 VIEWS-NOT PORTABLE) from 09/05/2017 FINDINGS: The cardiomediastinal silhouette and pulmonary vascularity are within normal limits. The lungs are clear without infiltrates, suspicious nodules, or pleural effusions. No acute bony abnormalities. Postsurgical clips are again noted in the upper abdomen. IMPRESSION: No acute findings. Dictated by: Yobani Jones 09/23/2019 16:40 Electronically signed by Yobani Jones in [place] 09/23/2019 16:40
[2019-09-23 16:55] LABS: Basophils % 0.5 % (0.1-2.0); Eosinophils % 0.2 % (0.1-12.0); Hematocrit 37.3 % (37.0-47.0); Hemoglobin 11.8 g/dL (12.2-16.2); Lymphocytes # 1.4 K/mm3 (0.7-4.5); Lymphocytes % 24.1 % (10-50); Mean Corpuscular HGB Conc 31.7 g/dL (31.8-35.4); Mean Corpuscular Hemoglobin 31.3 pg (27.0-31.2); Mean Corpuscular Volume 98.8 fl (81-99); Mean Platelet Volume 7.9 fl (7.4-10.4); Monocytes # 0.4 K/mm3 (0.1-1.0); Monocytes % 7.5 % (1.7-9.3); Neutrophils # 3.9 K/mm3 (1.8-7.8); Neutrophils % 67.7 % (37.0-80.0); Platelet Count 241 K/mm3 (142-424); Red Blood Count 3.78 M/mm3 (4.20-5.40); Red Cell Distribution Width 13.9 % (11.5-17.5); White Blood Count 5.8 K/mm3 (4.8-10.8)
--- NOTE | 2019-09-23 16:55 | ECG_ITS ---
APPROVED REPORT Exam: Resting ECG HR:59 bpm ECG Measurements Heart Rate 59 AXES SC 162 P 45 QRSd 112 QRS -5 QT 414 T 31 QTc 409 <Conclusion> Sinus bradycardia Otherwise normal ECG Electronically signed by : Jun Hendrickson, 09/24/2019 17:39:34
[2019-09-23 19:09] LABS: Alanine Aminotransferase 12 U/L (12-78); Albumin Level 3.6 gm/dL (3.4-5.0); Albumin/Globulin Ratio 1.3 (1.1-1.8); Alkaline Phosphatase 86 U/L (46-116); Anion Gap 14.2 mEq/L (5-15); Aspartate Amino Transferase 15 U/L (15-37); Bilirubin,Total 0.3 mg/dL (0.2-1.0); Blood Urea Nitrogen 15 mg/dL (7-18); Calcium 8.7 mg/dL (8.5-10.1); Carbon Dioxide 27 mmol/L (21.0-32.0); Chloride 103 mmol/L (98-107); Creatinine,Serum 0.61 mg/dL (0.55-1.02); Estimated Glomerular Filt Rate 99 ml/min (>60); GFR (African American) 120 ML/MIN (>60); Globulin 2.7 gm/dl (1.3-3.2); Glucose 90 mg/dL (74-106); Potassium 4.2 mmoL/L (3.5-5.1); Sodium 140 mmol/L (136-145); Total Protein,Serum 6.3 gm/dL (6.4-8.2)
[2019-09-25 15:30] LABS: Vitamin D 25 Hydroxy 45.7 ng/mL (30.0-100.0)
== END ==
PROVIDERS: PCP Family Medicine; Visit Provider Podiatrist
DX: M79.671 Pain in right foot (principal); Z01.818 Encounter for other preprocedural examination
CPT/HCPCS: 36415; 71046; 73630; 80053; 82652; 85025; 93005

== ENCOUNTER → 2019-10-08 08:19 | Outpatient (CLI) | payer MEDICARE, SELFPAY ==
--- NOTE | 2019-10-08 08:23 | XR_ITS ---
PROCEDURE: XR FOOT WT BEARING RT 3V CLINICAL INDICATION: post-op COMPARISON: [id number] XR foot LT min 3V from 11/20/2017 [id number] XR foot wt bearing LT 3V from 01/15/2018 XR FOOT WT BEARING RT 3V from 09/23/2019 XR FOOT RT MIN 3V from 09/26/2019 FINDINGS: The appearance of the fracture site of the proximal 5th metatarsal bone and orientation of the fixation screw remains stable. There is no definite callus formation and there is no abnormal angulation. The remainder of the exam is unchanged. IMPRESSION: No significant change. Dictated by: Santosh Daniel 10/08/2019 09:03 Electronically signed by Santosh Daniel in [place] 10/08/2019 09:03
--- NOTE | 2019-10-08 08:23 | XR_ITS ---
PROCEDURE: XR FOOT WT BEARING LT 3V CLINICAL INDICATION: Pain COMPARISON: [id number] XR foot LT min 3V from 11/20/2017 [id number] XR foot wt bearing LT 3V from 01/15/2018 XR FOOT WT BEARING RT 3V from 09/23/2019 XR FOOT RT MIN 3V from 09/26/2019 FINDINGS: The splint device has been removed. The appearance of the fixation screw involving the 5th metatarsal bone remains stable. Lateral view shows 2 millimeter plantar calcaneal spur. There is no acute fracture. Soft tissues are unremarkable. IMPRESSION: No acute findings. Dictated by: Santosh Daniel 10/08/2019 09:02 Electronically signed by Santosh Daniel in [place] 10/08/2019 09:02
== END ==
PROVIDERS: PCP Nurse Practitioner; Visit Provider Podiatrist
DX: Z98.890 Other specified postprocedural states (principal); M79.671 Pain in right foot
CPT/HCPCS: 73630

== ENCOUNTER → 2019-10-29 14:12 | Outpatient (CLI) | payer MEDICARE, SELFPAY ==
--- NOTE | 2019-10-29 14:18 | XR_ITS ---
PROCEDURE: XR FOOT WT BEARING RT 3V CLINICAL INDICATION: post-op Follow-up surgery COMPARISON: 10/08/2019 FINDINGS: The exam is a CT obtained through a air cast. Longitudinal screw remains present at the base of the 5th metatarsal stabilizing the nondisplaced fracture. No callus formation evident. Incidental note made of osteoarthritic change 1st MTP joint and navicular cuneiform joint and talonavicular joint. IMPRESSION: No change status post ORIF 5th metatarsal fracture with good alignment Dictated by: John Stone MD 10/29/2019 15:12 Electronically signed by John Stone MD in [place] 10/29/2019 15:12
== END ==
PROVIDERS: PCP Nurse Practitioner; Visit Provider Podiatrist
DX: Z98.890 Other specified postprocedural states (principal); S99.191D Other physeal fracture of right metatarsal, subsequent encounter for fracture with routine healing
CPT/HCPCS: 73630

== ENCOUNTER → 2019-11-12 12:14 | Outpatient (CLI) | payer MEDICARE, SELFPAY ==
--- NOTE | 2019-11-12 12:20 | XR_ITS ---
PROCEDURE: XR FOOT WT BEARING RT 3V CLINICAL INDICATION: post-op Follow-up fracture/ORIF COMPARISON: XR FOOT RT MIN 3V from 09/26/2019 XR FOOT WT BEARING RT 3V from 10/08/2019 XR FOOT WT BEARING LT 3V from 10/08/2019 XR FOOT WT BEARING RT 3V from 10/29/2019 FINDINGS: The air splint has been removed. There is a longitudinal screw through the proximal aspect of the 5th metatarsal stabilizing a nondisplaced fracture. No bony union evident at this time. There remains good alignment. There is mild pes planus. Soft tissue calcification is present along the Achilles tendon distally. There are mild degenerative changes of the posterior subtalar joint, talonavicular joint, and navicular cuneiform joint. Mild osteoarthritis also noted at the 1st MTP joint. IMPRESSION: 1. Good alignment status post ORIF 5th metatarsal fracture. Fracture line is still visible. 2. Degenerative changes Dictated by: John Stone MD 11/12/2019 14:45 Electronically signed by John Stone MD in [place] 11/12/2019 14:45
== END ==
PROVIDERS: PCP Nurse Practitioner; Visit Provider Podiatrist
DX: Z98.890 Other specified postprocedural states (principal); S99.191A Other physeal fracture of right metatarsal, initial encounter for closed fracture
CPT/HCPCS: 73630

== ENCOUNTER → 2019-11-18 10:57 | Outpatient (CLI) | payer MEDICARE, SELFPAY ==
[2019-11-18 11:30] LABS: Basophils % 0.3 % (0.1-2.0); Hematocrit 36.7 % (37.0-47.0); Hemoglobin 11.9 g/dL (12.2-16.2); Lymphocytes # 0.8 K/mm3 (0.7-4.5); Mean Corpuscular HGB Conc 32.3 g/dL (31.8-35.4); Mean Corpuscular Hemoglobin 30.8 pg (27.0-31.2); Mean Corpuscular Volume 95.4 fl (81-99); Mean Platelet Volume 8.2 fl (7.4-10.4); Monocytes # 0.3 K/mm3 (0.1-1.0); Monocytes % 6.3 % (1.7-9.3); Neutrophils # 3.3 K/mm3 (1.8-7.8); Neutrophils % 75.4 % (37.0-80.0); Platelet Count 219 K/mm3 (142-424); Red Blood Count 3.84 M/mm3 (4.20-5.40); Red Cell Distribution Width 13.3 % (11.5-17.5); White Blood Count 4.3 K/mm3 (4.8-10.8)
[2019-11-18 11:56] LABS: Erythrocyte Sedimentation Rate 28 mm/hr (0-30)
[2019-11-18 21:19] LABS: Alanine Aminotransferase 18 U/L (12-78); Albumin Level 3.6 gm/dL (3.4-5.0); Albumin/Globulin Ratio 1.5 (1.1-1.8); Alkaline Phosphatase 85 U/L (46-116); Anion Gap 14.3 mEq/L (5-15); Aspartate Amino Transferase 17 U/L (15-37); Bilirubin,Total 0.4 mg/dL (0.2-1.0); Blood Urea Nitrogen 10 mg/dL (7-18); Calcium 8.2 mg/dL (8.5-10.1); Carbon Dioxide 26 mmol/L (21.0-32.0); Chloride 105 mmol/L (98-107); Chol/HDL Ratio 2.6 (1-3.5); Cholesterol 228 mg/dL (140-200); Creatinine,Serum 0.75 mg/dL (0.55-1.02); Estimated Glomerular Filt Rate 78 ml/min (>60); GFR (African American) 94 ML/MIN (>60); Globulin 2.4 gm/dl (1.3-3.2); Glucose 93 mg/dL (74-106); HDL Cholesterol 88 mg/dL (29-89); LDL Cholesterol 128 mg/dL (0-130); Potassium 4.3 mmoL/L (3.5-5.1); Sodium 141 mmol/L (136-145); Triglycerides 62 mg/dL (30-200); VLDL Cholesterol 12 mg/dL (0-40)
[2019-11-18 21:23] LABS: C-Reactive Protein < 0.2 mg/dL (0.0-0.9)
[2019-11-19 14:01] LABS: Vitamin D 25 Hydroxy 58.6 ng/mL (30.0-100.0)
[2019-11-19 15:28] LABS: Parathyroid Hormone Intact 78 pg/mL (15-65)
[2019-11-22 16:57] LABS: N-Telopeptide Cross-linked 7.7 nmol BCE/L (6.2-19.0)
== END ==
PROVIDERS: Visit Provider Nurse Practitioner Women's Health
DX: E55.9 Vitamin D deficiency, unspecified (principal); M06.09 Rheumatoid arthritis without rheumatoid factor, multiple sites; M81.0 Age-related osteoporosis without current pathological fracture; Z13.220 Encounter for screening for lipoid disorders; Z79.899 Other long term (current) drug therapy
CPT/HCPCS: 36415; 80053; 80061; 82523; 82652; 83970; 85025; 85651; 86140

== ENCOUNTER → 2019-12-02 14:59 | Outpatient (CLI) | payer MEDICARE, SELFPAY ==
--- NOTE | 2019-12-02 15:04 | XR_ITS ---
PROCEDURE: XR FOOT WT BEARING RT 3V CLINICAL INDICATION: postop views COMPARISON: XR FOOT WT BEARING RT 3V from 10/08/2019 XR FOOT WT BEARING LT 3V from 10/08/2019 XR FOOT WT BEARING RT 3V from 10/29/2019 XR FOOT WT BEARING RT 3V from 11/12/2019 FINDINGS: A reduction screw has been placed longitudinally through the proximal 5th metatarsal for reduction of fracture. There is near anatomical positioning. Residual fracture line is still noted without significant callus formation of healing. There is diffuse demineralization. There is moderate osteoarthritis at the 1st metatarsophalangeal joint and at the Lisfranc joint and joints of tarsals of the midfoot and the calcaneocuboid joint. Degenerative plantar calcaneal spurring is noted. Dystrophic calcification is seen in the region of the Achilles tendon at its calcaneal attachment site. IMPRESSION: Continued anatomical positioning at site of fracture of proximal 5th metatarsal but without significant callus formation of healing. Dictated by: Yobani Jones 12/02/2019 17:29 Electronically signed by Yobani Jones in [place] 12/02/2019 17:29
== END ==
PROVIDERS: PCP Nurse Practitioner; Visit Provider Podiatrist
DX: S99.191G Other physeal fracture of right metatarsal, subsequent encounter for fracture with delayed healing (principal); M19.071 Primary osteoarthritis, right ankle and foot; Z98.890 Other specified postprocedural states
CPT/HCPCS: 73630

== ENCOUNTER → 2019-12-30 07:50 | Outpatient (CLI) | payer MEDICARE, SELFPAY ==
--- NOTE | 2019-12-30 07:54 | XR_ITS ---
PROCEDURE: XR FOOT WT BEARING RT 3V CLINICAL INDICATION: post-op Pain and swelling, postop, fracture follow-up COMPARISON: XR FOOT WT BEARING RT 3V from 09/23/2019 XR FOOT WT BEARING RT 3V from 10/08/2019 XR FOOT WT BEARING RT 3V from 10/29/2019 XR FOOT WT BEARING RT 3V from 11/12/2019 XR FOOT WT BEARING RT 3V from 12/02/2019 FINDINGS: Longitudinal screw remains in place stabilizing the proximal fracture of the 5th metatarsal. Fracture line is still visible not significantly changed. There is good alignment. Degenerative changes are present in the midfoot at the talonavicular and navicular cuneiform junction and 1st metatarsophalangeal junction. Other findings:None. IMPRESSION: No change good alignment status post ORIF 5th metatarsal fracture Dictated by: John Stone MD 12/30/2019 10:00 Electronically signed by John Stone MD in [place] 12/30/2019 10:00
== END ==
PROVIDERS: PCP Nurse Practitioner; Visit Provider Podiatrist
DX: Z98.890 Other specified postprocedural states (principal); S99.191K Other physeal fracture of right metatarsal, subsequent encounter for fracture with nonunion; S92.354K Nondisplaced fracture of fifth metatarsal bone, right foot, subsequent encounter for fracture with nonunion
CPT/HCPCS: 73630

== ENCOUNTER → 2020-04-09 07:54 | Outpatient (CLI) | payer MEDICARE, SELFPAY ==
[2020-04-09 09:00] LABS: Basophils % 0.2 % (0.1-2.0); Eosinophils % 0.2 % (0.1-12.0); Hematocrit 33.7 % (37.0-47.0); Hemoglobin 11.5 g/dL (12.2-16.2); Lymphocytes # 1.1 K/mm3 (0.7-4.5); Lymphocytes % 22.4 % (10-50); Mean Corpuscular HGB Conc 34.2 g/dL (31.8-35.4); Mean Corpuscular Hemoglobin 32.5 pg (27.0-31.2); Mean Corpuscular Volume 95.3 fl (81-99); Mean Platelet Volume 7.7 fl (7.4-10.4); Monocytes # 0.4 K/mm3 (0.1-1.0); Monocytes % 6.9 % (1.7-9.3); Neutrophils # 3.6 K/mm3 (1.8-7.8); Neutrophils % 70.3 % (37.0-80.0); Platelet Count 238 K/mm3 (142-424); Red Blood Count 3.54 M/mm3 (4.20-5.40); White Blood Count 5.1 K/mm3 (4.8-10.8)
[2020-04-09 09:53] LABS: Chloride 107 mmol/L (98-107); Potassium 4.3 mmoL/L (3.5-5.1); Sodium 138 mmol/L (136-145)
[2020-04-09 09:55] LABS: Alanine Aminotransferase 15 U/L (12-78); Aspartate Amino Transferase 32 U/L (14-36); Blood Urea Nitrogen 18 mg/dl (7-17); Estimated Glomerular Filt Rate 84 ml/min (>60); GFR (African American) 102 ML/MIN (>60)
[2020-04-09 09:56] LABS: Albumin Level 3.8 g/dl (3.5-5.0); Albumin/Globulin Ratio 1.7 (1.1-1.8); Alkaline Phosphatase 71 U/L (38-126); Anion Gap 7.3 mEq/L (5-15); Bilirubin,Total 0.4 mg/dl (0.2-1.3); Calcium 8.4 mg/dl (8.4-10.2); Carbon Dioxide 28 mmol/L (22.0-30.0); Chol/HDL Ratio 2.3 (1-3.5); Cholesterol 191 mg/dl (140-200); Globulin 2.2 g/dL (1.3-3.2); Glucose 97 mg/dl (74-100); HDL Cholesterol 84 mg/dl (40-60); Triglycerides 64 mg/dl (30-150); VLDL Cholesterol 13 mg/dL (0-40)
[2020-04-09 10:02] LABS: C-Reactive Protein 2.1 mg/L (0-4)
[2020-04-09 10:07] LABS: Direct LDL Cholesterol 94.43 mg/dL (100-129)
[2020-04-09 11:01] LABS: Intact Parathyroid Hormone 158.5 pg/mL (7.5-53.5)
[2020-04-09 11:06] LABS: 25-OH Vitamin D, Total 81.3 ng/mL (30-100)
[2020-04-09 11:44] LABS: Erythrocyte Sedimentation Rate 40 mm/hr (0-30)
[2020-04-09 15:09] LABS: T4 (Thyroxine) 6.9 ug/dl (5.53-11.0)
[2020-04-09 15:10] LABS: Free T4 (Free Thyroxine) 0.87 ng/dl (0.78-2.19)
[2020-04-09 15:23] LABS: Thyroid Stimulating Hormone 2.05 uIU/mL (0.465-4.68)
== END ==
PROVIDERS: Visit Provider Nurse Practitioner
DX: M06.09 Rheumatoid arthritis without rheumatoid factor, multiple sites (principal); M81.0 Age-related osteoporosis without current pathological fracture; E55.9 Vitamin D deficiency, unspecified; Z13.220 Encounter for screening for lipoid disorders; Z79.899 Other long term (current) drug therapy
CPT/HCPCS: 36415; 80053; 80061; 82306; 82523; 83970; 84436; 84439; 84443; 85025; 85651; 86140

== ENCOUNTER → 2020-07-23 12:30 | Outpatient (CLI) | payer MEDICARE, SELFPAY ==
[2020-07-23 13:08] LABS: Basophils % 0.4 % (0.1-2.0); Eosinophils % 0.1 % (0.1-12.0); Hematocrit 38.9 % (37.0-47.0); Hemoglobin 12.3 g/dL (12.2-16.2); Lymphocytes % 16.9 % (10-50); Mean Corpuscular HGB Conc 31.7 g/dL (31.8-35.4); Mean Corpuscular Hemoglobin 30.3 pg (27.0-31.2); Mean Corpuscular Volume 95.6 fl (81-99); Monocytes # 0.3 K/mm3 (0.1-1.0); Monocytes % 5.6 % (1.7-9.3); Neutrophils # 4.4 K/mm3 (1.8-7.8); Neutrophils % 76.9 % (37.0-80.0); Platelet Count 257 K/mm3 (142-424); Red Blood Count 4.07 M/mm3 (4.20-5.40); Red Cell Distribution Width 14.2 % (11.5-17.5); White Blood Count 5.7 K/mm3 (4.8-10.8)
[2020-07-23 13:38] LABS: Erythrocyte Sedimentation Rate 35 mm/hr (0-30)
[2020-07-23 15:40] LABS: Alanine Aminotransferase 14 U/L (12-78); Albumin Level 4.2 g/dl (3.5-5.0); Albumin/Globulin Ratio 1.8 (1.1-1.8); Alkaline Phosphatase 98 U/L (38-126); Anion Gap 12.3 mEq/L (5-15); Aspartate Amino Transferase 26 U/L (14-36); Bilirubin,Total 0.5 mg/dl (0.2-1.3); Blood Urea Nitrogen 26 mg/dl (7-17); Calcium 9.8 mg/dl (8.4-10.2); Carbon Dioxide 25 mmol/L (22.0-30.0); Chloride 104 mmol/L (98-107); Estimated Glomerular Filt Rate 72 ml/min (>60); GFR (African American) 87 ML/MIN (>60); Globulin 2.4 g/dL (1.3-3.2); Glucose 122 mg/dl (74-100); Potassium 4.3 mmoL/L (3.5-5.1); Sodium 137 mmol/L (136-145); Total Protein,Serum 6.6 g/dl (6.3-8.2)
[2020-07-23 15:46] LABS: C-Reactive Protein 11.4 mg/L (0-4)
[2020-07-23 15:54] LABS: Intact Parathyroid Hormone 36.4 pg/mL (7.5-53.5)
[2020-07-23 15:57] LABS: 25-OH Vitamin D, Total 69.9 ng/mL (30-100)
[2020-07-23 15:58] LABS: T4 (Thyroxine) 6.4 ug/dl (5.53-11.0)
[2020-07-23 16:01] LABS: Free T4 (Free Thyroxine) 0.85 ng/dl (0.78-2.19)
[2020-07-23 16:12] LABS: Thyroid Stimulating Hormone 1.11 uIU/mL (0.465-4.68)
[2020-07-23 16:46] LABS: Vitamin B12 253 pg/mL (239-931)
== END ==
PROVIDERS: Visit Provider Nurse Practitioner Women's Health
DX: M06.09 Rheumatoid arthritis without rheumatoid factor, multiple sites (principal); M81.0 Age-related osteoporosis without current pathological fracture; E55.9 Vitamin D deficiency, unspecified; R53.83 Other fatigue; Z79.899 Other long term (current) drug therapy
CPT/HCPCS: 36415; 80053; 82306; 82607; 82746; 83970; 84436; 84439; 84443; 85025; 85651; 86140

== ENCOUNTER → 2020-08-03 12:20 | Outpatient (CLI) | payer MEDICARE, MEDICAID, SELFPAY ==
--- NOTE | 2020-08-03 12:28 | XR_ITS ---
PROCEDURE: XR CHEST 2V CLINICAL HISTORY: PNEUMONIA , Painful inspiration COMPARISON: CR XR CHEST 2V from 09/23/2019 FINDINGS: The cardiomediastinal silhouette and pulmonary vascularity are within normal limits. The lungs are clear without infiltrates, suspicious nodules, or pleural effusions. No acute bony abnormalities. There are mild multilevel degenerate changes of the lower thoracic spine. Surgical clips are seen upper stomach area and possibly related to hiatal hernia surgery. IMPRESSION: No acute findings. Dictated by: Dr. Hitesh Krueger MD 08/03/2020 13:04 Dr. Hitesh Krueger MD in [place] 08/03/2020 13:04
== END ==
PROVIDERS: PCP Nurse Practitioner; Visit Provider Nurse Practitioner
DX: J18.9 Pneumonia, unspecified organism (principal)
CPT/HCPCS: 71046

== ENCOUNTER → 2020-12-24 07:00 | Outpatient (CLI) | payer MEDICARE, OTHER, SELFPAY ==
[2020-12-24 07:16] LABS: Basophils % 0.4 % (0.1-2.0); Eosinophils % 0.1 % (0.1-12.0); Hematocrit 35.1 % (37.0-47.0); Hemoglobin 11.1 g/dL (12.2-16.2); Lymphocytes # 1.3 K/mm3 (0.7-4.5); Lymphocytes % 27.3 % (10-50); Mean Corpuscular HGB Conc 31.7 g/dL (31.8-35.4); Mean Corpuscular Hemoglobin 30.8 pg (27.0-31.2); Mean Corpuscular Volume 97.1 fl (81-99); Mean Platelet Volume 8.8 fl (7.4-10.4); Monocytes # 0.3 K/mm3 (0.1-1.0); Monocytes % 7.1 % (1.7-9.3); Neutrophils % 65.1 % (37.0-80.0); Platelet Count 228 K/mm3 (142-424); Red Blood Count 3.62 M/mm3 (4.20-5.40); Red Cell Distribution Width 14.3 % (11.5-17.5); White Blood Count 4.6 K/mm3 (4.8-10.8)
[2020-12-24 07:56] LABS: Alanine Aminotransferase 13 U/L (12-78); Albumin Level 3.6 g/dl (3.5-5.0); Albumin/Globulin Ratio 1.5 (1.1-1.8); Alkaline Phosphatase 81 U/L (38-126); Anion Gap 9.3 mEq/L (5-15); Aspartate Amino Transferase 27 U/L (14-36); Bilirubin,Total 0.5 mg/dl (0.2-1.3); Blood Urea Nitrogen 16 mg/dl (7-17); Calcium 8.9 mg/dl (8.4-10.2); Carbon Dioxide 25 mmol/L (22.0-30.0); Chloride 106 mmol/L (98-107); Estimated Glomerular Filt Rate 84 ml/min (>60); GFR (African American) 102 ML/MIN (>60); Globulin 2.4 g/dL (1.3-3.2); Glucose 87 mg/dl (74-100); Potassium 4.3 mmoL/L (3.5-5.1); Sodium 136 mmol/L (136-145)
[2020-12-24 07:56] LABS: Chol/HDL Ratio 2.5 (1-3.5); Cholesterol 196 mg/dl (140-200); HDL Cholesterol 77 mg/dl (40-60); Triglycerides 63 mg/dl (30-150); VLDL Cholesterol 13 mg/dL (0-40)
[2020-12-24 08:01] LABS: C-Reactive Protein 2.3 mg/L (0-4)
[2020-12-24 08:07] LABS: Direct LDL Cholesterol 85.38 mg/dL (100-129)
[2020-12-24 08:22] LABS: Erythrocyte Sedimentation Rate 32 mm/hr (0-30)
== END ==
PROVIDERS: Nurse Practitioner Family; Visit Provider Nurse Practitioner Women's Health
DX: I10 Essential (primary) hypertension (principal); M06.9 Rheumatoid arthritis, unspecified; Z79.899 Other long term (current) drug therapy
CPT/HCPCS: 36415; 80053; 80061; 85025; 85651; 86140

== ENCOUNTER → 2021-01-05 09:50 | Outpatient (CLI) | payer MEDICARE, OTHER, SELFPAY ==
--- NOTE | 2021-01-05 10:00 | XR_ITS ---
PROCEDURE: XR ANKLE WT BEARING RT MIN 3V CLINICAL INDICATION: pain COMPARISON: No exams were available for comparison FINDINGS: Mild hypertrophic changes are present at the distal aspect of the lateral and medial malleolus. Calcification is present involving the distal aspect of the Achilles tendon. No acute fracture or dislocation evident of the ankle. IMPRESSION: Mild degenerative changes Dictated by: John Stone MD 01/05/2021 19:06 John Stone MD in [place] 01/05/2021 19:06
--- NOTE | 2021-01-05 10:00 | XR_ITS ---
PROCEDURE: XR FOOT WT BEARING RT 3V CLINICAL INDICATION: pain, injury COMPARISON: CR XR FOOT WT BEARING RT 3V from 10/29/2019 CR XR FOOT WT BEARING RT 3V from 11/12/2019 CR XR FOOT WT BEARING RT 3V from 12/02/2019 CR XR FOOT WT BEARING RT 3V from 12/30/2019 FINDINGS: Bony hypertrophy is present involving the distal aspect of the 1st metatarsal medially consistent with bunion formation. Postsurgical changes with a longitudinal screw in the proximal aspect of the 5th metatarsal. Fracture line remains visible although somewhat less apparent. There are osteoarthritic changes at the talonavicular and navicular cuneiform joint with borderline pes planus. Other findings:None. IMPRESSION: Healing fracture proximal 5th metatarsal status post ORIF with osteoarthritic changes Dictated by: John Stone MD 01/05/2021 19:08 John Stone MD in [place] 01/05/2021 19:08
--- NOTE | 2021-01-05 10:00 | XR_ITS ---
PROCEDURE: XR FOOT WT BEARING LT 3V CLINICAL INDICATION: PAIN COMPARISON: CR XR FOOT WT BEARING LT 3V from 10/08/2019 CR XR FOOT WT BEARING RT 3V from 10/29/2019 CR XR FOOT WT BEARING RT 3V from 11/12/2019 CR XR FOOT WT BEARING RT 3V from 12/02/2019 CR XR FOOT WT BEARING RT 3V from 12/30/2019 FINDINGS: A longitudinal screws present at the proximal aspect of the 5th metatarsal stabilizing an old fracture with good alignment. Osteoarthritic changes are present at the talonavicular and navicular cuneiform joint with pes planus. There is hammertoe deformity of the 2nd toe. IMPRESSION: Postsurgical change with osteoarthritis and hammertoe deformity Dictated by: John Stone MD 01/05/2021 19:10 John Stone MD in [place] 01/05/2021 19:10
== END ==
PROVIDERS: PCP Nurse Practitioner Family; Visit Provider Podiatrist
DX: M19.072 Primary osteoarthritis, left ankle and foot; M19.071 Primary osteoarthritis, right ankle and foot
CPT/HCPCS: 73610; 73630

== ENCOUNTER → 2021-01-12 16:29 | Outpatient (CLI) | payer MEDICARE, OTHER, SELFPAY ==
--- NOTE | 2021-01-12 16:29 | MM_ITS ---
PROCEDURE: MM DIG SCREENING MAMM BI W/CAD Digital Breast Tomosynthesis Included CLINICAL INDICATION: screening xmg There is a history of breast cancer in the patient's maternal grandmother. COMPARISON: MG DMSB DIG MAMM-SCREEN DUANE from 05/06/2015 MG SCBI MM Dig screening mamm BI w/CAD from 12/07/2017 MG SCBI MM Dig screening mamm BI w/CAD from 12/21/2018 TECHNIQUE: Standard CC and MLO images and 3D Tomosynthesis was obtained. R2 CAD reviewed. FINDINGS: Scattered fibroglandular densities are seen in both breast. Again noted is an asymmetric area of glandular elements upper-outer quadrant right breast. There is benign-appearing macrocalcification left breast and benign-appearing microcalcification right breast. There is no new or suspicious lesion in either breast and no suspicious microcalcifications. IMPRESSION: Fibrofatty parenchyma with no suspicious lesions seen BI-RAD Category: 2 Benign Finding(s) FOLLOW-UP: 1YR 1 Year Follow-up (A letter has been sent to the patient regarding results of the study.) Dictated by: Dr. Hitesh Krueger MD 01/20/2021 08:02 Dr. Hitesh Krueger MD in [place] 01/20/2021 08:02
== END ==
PROVIDERS: PCP Nurse Practitioner Family; Visit Provider Nurse Practitioner Obstetrics & Gynecology
DX: Z12.31 Encounter for screening mammogram for malignant neoplasm of breast (principal)
CPT/HCPCS: 77063; 77067

== ENCOUNTER → 2021-03-12 09:55 | Outpatient (CLI) | payer MEDICARE, SELFPAY ==
--- NOTE | 2021-03-12 09:55 | CA_ITS ---
APPROVED REPORT EXAM: Comprehensive 2D, Doppler, and color-flow Echocardiogram [place] [employer] Operator: Wen Moctezuma RT(R) Ht: 5 ft 3 in Wt: 275lbs BSA: 2.21 BP: 160/62 mmHg Indications: SOA,DD,CP,EDEMA,HLD,HTN 2D Dimensions LVOT 2.06 cm (M/F) 1.5-2.5 LA Volume 58.00 mL LA Volume Index 26.24 mL/m2 (M/F) 16-34 M-Mode Dimensions RVDd 2.93 cm (0.9-2.6) LA Diam 3.66 cm (1.9-4.0) LVDd 5.01 cm (3.5-5.7) Ao Diam 2.85 cm (2.0-3.7) LVDs 3.91 cm (3.5-5.7) IVSd 1.15 cm (0.6-1.1) PWd 1.06 cm (0.6-1.1) EF (Teich) 44.20% FS 22.00% EDV (Teich) 118.80 mL ESV (Teich) 66.30 mL LV Diastology E Decel Time 240.00 (160-240 msec) E/A Ratio 1.0 MED E' 8.40 (< 7 cm/sec) E'/MED E' Ratio 13.51 (>14) LAT E' 11.80 (<10 cm/sec) E/LAT E' Ratio 9.62 (>14) Mitral Valve MV E Max Raymundo. 114.00 (40-130 cm/s) MV A Velocity 113.00 (40-130 cm/s) E/A Ratio 1.00 MV Decel. Time 240.00 (160-240 ms) MV PHT 70.00 ms Left Ventricle Left atrium is mildly enlarged, left ventricle is normal size, mild concentric left ventricular hypertrophy, visually estimated ejection fraction 55% with no regional wall motion abnormality, grade 1 diastolic dysfunction seen without tissue Doppler evidence of raise left atrial pressure. Right Ventricle Right atrium and right ventricle are normal size and contractility. Aortic Valve Aortic valve is minimally thickened and fibrosed, there is no aortic stenosis, there is mild aortic insufficiency. Mitral Valve Mitral valve structurally normal, there is trace mitral regurgitation. Tricuspid Valve Tricuspid grossly normal, there is trace tricuspid regurgitation, tricuspid regurgitation jet velocity is inadequate for calculation of the right ventricular systolic pressure. Pulmonic Valve Pulmonic valve is poorly visualized. Great Vessels Aortic root is normal size. Pericardium No significant pericardial effusion noted. Conclusion 1. Mildly enlarged left atrium, normal left ventricular size, mild concentric left ventricular hypertrophy, visually estimated ejection fraction 55% with no regional wall motion abnormality, grade 1 diastolic dysfunction seen without tissue Doppler evidence of raise left atrial pressure. 2. Mild aortic, mild mitral and tricuspid regurgitation. 3. No significant pericardial effusion noted. Electronically signed by : Avery Braxton, 03/12/2021 14:35:55
== END ==
PROVIDERS: PCP Nurse Practitioner Family; Visit Provider Urology
DX: I51.89 Other ill-defined heart diseases (principal); R06.00 Dyspnea, unspecified
CPT/HCPCS: 93306

== ENCOUNTER → 2021-03-29 09:06 | Outpatient (CLI) | payer MEDICARE, SELFPAY ==
[2021-03-29 09:48] LABS: Basophils % 0.4 % (0.1-2.0); Eosinophils % 0.1 % (0.1-12.0); Hematocrit 37.1 % (37.0-47.0); Hemoglobin 12.4 g/dL (12.2-16.2); Lymphocytes % 14.5 % (10-50); Mean Corpuscular HGB Conc 33.4 g/dL (31.8-35.4); Mean Corpuscular Hemoglobin 31.3 pg (27.0-31.2); Mean Corpuscular Volume 93.9 fl (81-99); Mean Platelet Volume 8.2 fl (7.4-10.4); Monocytes # 0.5 K/mm3 (0.1-1.0); Monocytes % 6.4 % (1.7-9.3); Neutrophils # 5.6 K/mm3 (1.8-7.8); Neutrophils % 78.6 % (37.0-80.0); Platelet Count 244 K/mm3 (142-424); Red Blood Count 3.96 M/mm3 (4.20-5.40); Red Cell Distribution Width 14.1 % (11.5-17.5); White Blood Count 7.1 K/mm3 (4.8-10.8)
[2021-03-29 10:10] LABS: Chloride 102 mmol/L (98-107); Sodium 137 mmol/L (136-145)
[2021-03-29 10:11] LABS: Potassium 4.5 mmoL/L (3.5-5.1)
[2021-03-29 10:13] LABS: Alanine Aminotransferase 15 U/L (12-78); Alkaline Phosphatase 105 U/L (38-126); Anion Gap 11.5 mEq/L (5-15); Aspartate Amino Transferase 29 U/L (14-36); Bilirubin,Total 0.6 mg/dl (0.2-1.3); Blood Urea Nitrogen 19 mg/dl (7-17); Carbon Dioxide 28 mmol/L (22.0-30.0); Estimated Glomerular Filt Rate 84 ml/min (>60); GFR (African American) 102 ML/MIN (>60)
[2021-03-29 10:14] LABS: Albumin Level 4.3 g/dl (3.5-5.0); Albumin/Globulin Ratio 1.8 (1.1-1.8); Calcium 9.2 mg/dl (8.4-10.2); Globulin 2.4 g/dL (1.3-3.2); Glucose 103 mg/dl (74-100); Total Protein,Serum 6.7 g/dl (6.3-8.2)
[2021-03-29 10:17] LABS: Erythrocyte Sedimentation Rate 48 mm/hr (0-30)
== END ==
PROVIDERS: Visit Provider Internal Medicine
DX: M06.09 Rheumatoid arthritis without rheumatoid factor, multiple sites (principal); Z79.899 Other long term (current) drug therapy
CPT/HCPCS: 36415; 80053; 85025; 85651; 86140

== ENCOUNTER → 2021-06-25 09:23 | Outpatient (CLI) | payer MEDICARE, SELFPAY ==
[2021-06-25 09:49] LABS: Basophils % 0.3 % (0.1-2.0); Eosinophils % 0.1 % (0.1-12.0); Hematocrit 36.7 % (37.0-47.0); Lymphocytes # 0.9 K/mm3 (0.7-4.5); Lymphocytes % 16.8 % (10-50); Mean Corpuscular HGB Conc 32.6 g/dL (31.8-35.4); Mean Corpuscular Hemoglobin 31.6 pg (27.0-31.2); Mean Corpuscular Volume 96.9 fl (81-99); Monocytes # 0.4 K/mm3 (0.1-1.0); Monocytes % 6.8 % (1.7-9.3); Neutrophils # 4.2 K/mm3 (1.8-7.8); Neutrophils % 75.9 % (37.0-80.0); Platelet Count 268 K/mm3 (142-424); Red Blood Count 3.79 M/mm3 (4.20-5.40); Red Cell Distribution Width 13.2 % (11.5-17.5); White Blood Count 5.5 K/mm3 (4.8-10.8)
[2021-06-25 10:11] LABS: Erythrocyte Sedimentation Rate 36 mm/hr (0-30)
[2021-06-25 10:33] LABS: Alanine Aminotransferase 11 U/L (12-78); Albumin Level 3.7 g/dl (3.5-5.0); Albumin/Globulin Ratio 1.5 (1.1-1.8); Alkaline Phosphatase 87 U/L (38-126); Anion Gap 12.2 mEq/L (5-15); Aspartate Amino Transferase 24 U/L (14-36); Bilirubin,Total 0.3 mg/dl (0.2-1.3); Blood Urea Nitrogen 7 mg/dl (7-17); Calcium 8.7 mg/dl (8.4-10.2); Carbon Dioxide 28 mmol/L (22.0-30.0); Chloride 99 mmol/L (98-107); Estimated Glomerular Filt Rate 100 ml/min (>60); GFR (African American) 121 ML/MIN (>60); Globulin 2.4 g/dL (1.3-3.2); Glucose 96 mg/dl (74-100); Potassium 4.2 mmoL/L (3.5-5.1); Sodium 135 mmol/L (136-145); Total Protein,Serum 6.1 g/dl (6.3-8.2)
[2021-06-25 10:38] LABS: C-Reactive Protein 11.3 mg/L (0-4)
[2021-06-25 10:50] LABS: 25-OH Vitamin D, Total 62.5 ng/mL (30-100)
[2021-06-25 11:22] LABS: Vitamin B12 830 pg/mL (239-931)
== END ==
PROVIDERS: Visit Provider Nurse Practitioner Women's Health
DX: M06.9 Rheumatoid arthritis, unspecified (principal); D51.1 Vitamin B12 deficiency anemia due to selective vitamin B12 malabsorption with proteinuria; E55.9 Vitamin D deficiency, unspecified; Z79.899 Other long term (current) drug therapy
CPT/HCPCS: 36415; 80053; 82306; 82607; 85025; 85651; 86140

== ENCOUNTER 2021-07-05 13:40 | Emergency (ER) | payer MEDICARE, SELFPAY ==
[2021-07-05 13:42] VITALS: BP 145/75; PULSE 72; RESP 18; TEMP 36.6; O2SAT 99; BMI 49.4
--- NOTE | 2021-07-05 13:55 | XR_ITS ---
PROCEDURE: XR ELBOW LT MIN 3V CLINICAL INDICATION: pain COMPARISON: No exams were available for comparison FINDINGS: No fracture or dislocation. No lytic or blastic change. There is normal mineralization. There is anterior and a posterior displaced fat. Prominent osteoarthritic changes are present. There is also a suspected loose body in the olecranon region measuring 17 x 9 mm. This could also be due to exophytic osteophyte. There is some minimal chondrocalcinosis lateral to the radius head. Lucency is present in the radial head laterally at 4 mm and may represent a geode. 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 Loose body at the olecranon region versus exophytic osteophyte of the olecranon process Dictated by: John Stone MD 07/05/2021 14:38 John Stone MD in [place] 07/05/2021 14:38
--- NOTE | 2021-07-05 14:25 | HMH.EDGENADL ---
ED Disposition Clinical Impression: Radial head fracture, closed Qualifiers: Encounter type: initial encounter Fracture alignment: nondisplaced Laterality: left Qualified Code(s): S52.125A - Nondisplaced fracture of head of left radius, initial encounter for closed fracture Disposition: Home, Self-Care Condition on Discharge: Good Additional Instructions: Follow-up with orthopedics later this week. For the emergency department for worsening pain. Prescriptions: Hydrocod/Acet 5/325 mg [Buchanan 5/325mg tablet] 1 tab PO Q6HP PRN #12 tab PRN Reason: Moderate Pain Transmission Status: Received by CRISS Mcintyre Referrals: Yolis English APRN [Primary Care Provider] - Nickolas Trent MD [Staff Physician] - (call for an appt) Time of Disposition: 14:36 - Critical Care Critical Care Time: No Attestation: On 07/05/21, the high probability of a clinically significant, sudden or life threatening deterioration of the following system(s) required my full and direct attention, intervention and personal management. The time I documented below is in addition to time spent performing reported procedures but includes the following listed in this critical care notation. Medical Decision Making - Medical Records Medical records reviewed: Yes: I reviewed the patient's medical records. - Pieter Inquiry Pt receiving controlled substance: No Vital Signs: 07/05/21 13:42 Temperature 98 F Temperature Source Oral Pulse Rate [Right] 72 Respiratory Rate 18 Blood Pressure [Right Arm] 145/75 H Blood Pressure Mean [Right Arm] 98 02 Sat by Pulse Oximetry 99 Oxygen Delivery Method Room Air Orders (Tests/Meds): ORDERS Category Date Time Status XR elbow LT min 3V Stat Exams 07/05/21 13:55 Taken - Radiology Data #1 Image(s): Elbow Image Reviewed: Yes I reviewed the patient's radiology image Preliminary Findings: Abnormal Impacted radial head fracture Medical Decision Narrative: 65yo F evaluated for left elbow pain after fall. Patient guards her arm during exam but the remainder of her physical exam is benign. Patient sent for x-ray and I have reviewed her images. Findings consistent with impacted radial head fracture. Patient is placed in a long-arm splint. Pain medication sent to her pharmacy of choosing. Provided orthopedic follow-up information. General Adult HPI - General Chief complaint: Extremity Injury, Upper Stated complaint: severe left arm pain Time Seen by Provider: 07/05/21 14:25 Mode of Arrival: Ambulatory Limitations: No Limitations Description of Symptoms (Recalled from ER Triage Doc. by RN): C/O LEFT ELBOW PAIN AFTER GROUND LEVEL TRIP & FALL ONTO CONCRETE THIS MORNING. DENIES LOC. PMS INTACT. - History of Present Illness HPI narrative: 65yo F reports the emergency department secondary to left arm pain after a fall. Patient [id number]. She denies head strike or LOC. She states she tripped over an object on the floor. Denies any other injury. Injury occurred immediately prior to arrival. - Related Data Home Medications Medication Instructions Recorded Confirmed tofacitinib 11 mg tablet,extended 11 mg PO QDAY 10/18/17 01/12/21 release 24 hr alendronate 70 mg tablet 70 mg PO WEEKLY 28 Days #4 01/15/18 01/12/21 alprazolam 0.5 mg tablet 0.25 mg PO BID PRN 12/11/18 01/12/21 furosemide 40 mg tablet 40 mg PO ONCE PRN 12/11/18 01/12/21 uptrlavi-qbzytmj-nvgs-lutein tablet 1 tab PO DAILY tab 12/11/18 01/12/21 venlafaxine 150 mg 150 mg PO BID 90 Days #180 cap 12/11/18 01/12/21 capsule,extended release 24 hr atenolol 50 mg tablet 50 mg PO BID tab 01/11/21 01/12/21 buspirone 10 mg tablet 10 mg PO DAILY tab 01/11/21 01/12/21 etodolac 500 mg tablet 500 mg PO BID tab 01/11/21 01/12/21 pantoprazole 40 mg tablet,delayed 40 mg PO DAILY tab 01/11/21 01/12/21 release potassium chloride 10 mEq 20 meq PO DAILY PRN tab 01/11/21 01/12/21 tablet,extended release
--- NOTE | 2021-07-05 14:51 | PC.NURSE ---
POSTERIOR LONG ARM SPLINT APPLIED TO LUE.
[2021-07-05 15:10] VITALS: BP 142/79; PULSE 64; RESP 18; TEMP 36.6; O2SAT 98
== END 2021-07-05 15:12 | disposition home or self-care (01) ==
PROVIDERS: Emergency Provider Family Medicine; PCP Nurse Practitioner Family
DX: S52.125A Nondisplaced fracture of head of left radius, initial encounter for closed fracture (principal); W01.198A Fall on same level from slipping, tripping and stumbling with subsequent striking against other object, initial encounter; Y92.9 Unspecified place or not applicable; I10 Essential (primary) hypertension; E78.5 Hyperlipidemia, unspecified; I25.2 Old myocardial infarction; Z88.5 Allergy status to narcotic agent; Z79.899 Other long term (current) drug therapy
CPT/HCPCS: 29105; 73080; 99282

== ENCOUNTER → 2021-07-14 09:20 | Outpatient (CLI) | payer MEDICARE, SELFPAY ==
--- NOTE | 2021-07-14 09:25 | XR_ITS ---
PROCEDURE: XR ELBOW LT MIN 3V CLINICAL INDICATION: left radial head fracture COMPARISON: CR XR ELBOW LT MIN 3V from 07/05/2021 FINDINGS: No fracture or dislocation. No lytic or blastic change. There is normal mineralization. Osteoarthritic changes are once again noted at the elbow. Osteophytes are present as well. There is some cortical regularity the lateral epicondyle and condylar region. A 17 mm by 4 mm calcific density once again noted at the olecranon region as previously described not significantly changed and may be due to a loose body versus an unusual osteophyte. Previously noted displaced fat pad has improved. Other findings:None. IMPRESSION: Osteoarthritic changes with loose body versus atypical osteophyte at the olecranon fossa region with improvement in displaced fat pads Dictated by: John Stone MD 07/14/2021 13:14 John Stone MD in [place] 07/14/2021 13:14
== END ==
PROVIDERS: PCP Nurse Practitioner Family; Visit Provider Orthopaedic Surgery
DX: S52.122A Displaced fracture of head of left radius, initial encounter for closed fracture (principal)
CPT/HCPCS: 73080

== ENCOUNTER → 2021-08-09 08:18 | Outpatient (CLI) | payer MEDICARE, SELFPAY ==
--- NOTE | 2021-08-09 08:24 | XR_ITS ---
PROCEDURE: XR ELBOW LT MIN 3V CLINICAL INDICATION: LT radial head COMPARISON: CR XR ELBOW LT MIN 3V from 07/05/2021 CR XR ELBOW LT MIN 3V from 07/14/2021 FINDINGS: No fracture or dislocation. No lytic or blastic change. There is normal mineralization. Again noted is mild deformity of the radial head likely secondary to an old healed fracture. There is an oval ossification projecting over the supracondylar humerus which was seen previously and this could be a loose body or unusual osteophyte. There is no abnormal fat pad sign. There is mild spurring of the coronoid process of the olecranon fossa. Other findings:None. IMPRESSION: Stable posttraumatic and degenerate changes of the elbow, doubt acute fracture Dictated by: Dr. Hitesh Krueger MD 08/11/2021 10:25 Dr. Hitesh Krueger MD in [place] 08/11/2021 10:25
--- NOTE | 2021-08-09 08:24 | XR_ITS ---
PROCEDURE: XR FOOT WT BEARING LT 3V CLINICAL INDICATION: hammertoe pain COMPARISON: CR XR FOOT WT BEARING LT 3V from 01/05/2021 FINDINGS: No fracture or dislocation. No lytic or blastic change. There is normal mineralization. The threaded screws again seen at the base of the 5th metatarsal transfixing an old healed Greer type fracture. There is minor spurring of the dorsal aspect of the navicular 1st cuneiform articulation. There is a prominent plantar calcaneal enthesophyte and there is mild flattening of the plantar arch. There is stable hammertoe deformity of the 2nd toe. The soft tissues about all of the toes appear normal. IMPRESSION: Mild pes planus old healed fracture base of 5th metatarsal and stable hammertoe deformity 2nd toe Dictated by: Dr. Hitesh Krueger MD 08/11/2021 11:19 Dr. Hitesh Krueger MD in [place] 08/11/2021 11:19
== END ==
PROVIDERS: PCP Nurse Practitioner Family; Referring Provider Orthopaedic Surgery; Visit Provider Podiatrist
DX: M20.40 Other hammer toe(s) (acquired), unspecified foot (principal); S52.122A Displaced fracture of head of left radius, initial encounter for closed fracture
CPT/HCPCS: 73080; 73630

== ENCOUNTER → 2021-08-30 08:21 | Outpatient (CLI) | payer MEDICARE, SELFPAY ==
--- NOTE | 2021-08-30 08:35 | XR_ITS ---
PROCEDURE: XR FOOT WT BEARING LT 3V CLINICAL INDICATION: fracture eval COMPARISON: CR XR FOOT WT BEARING RT 3V from 12/30/2019 CR XR FOOT WT BEARING RT 3V from 01/05/2021 CR XR FOOT WT BEARING LT 3V from 01/05/2021 CR XR FOOT WT BEARING LT 3V from 08/09/2021 FINDINGS: Status post ORIF 5th metatarsal with longitudinal screw stabilizing a healing transverse fracture with good alignment. Borderline pes planus. Flexion deformity involves the 2nd toe. Calcaneal spur. Degenerative changes of the midfoot. Other findings:None. IMPRESSION: No change good alignment status post ORIF 5th metatarsal Dictated by: John Stone MD 08/30/2021 11:51 John Stone MD in [place] 08/30/2021 11:51
[2021-08-30 08:40] LABS: Basophils % 0.4 % (0.1-2.0); Hematocrit 37.3 % (37.0-47.0); Hemoglobin 12.3 g/dL (12.2-16.2); Lymphocytes # 1.1 K/mm3 (0.7-4.5); Lymphocytes % 21.4 % (10-50); Mean Corpuscular HGB Conc 32.9 g/dL (31.8-35.4); Mean Corpuscular Hemoglobin 31.8 pg (27.0-31.2); Mean Corpuscular Volume 96.8 fl (81-99); Mean Platelet Volume 9.3 fl (7.4-10.4); Monocytes # 0.3 K/mm3 (0.1-1.0); Monocytes % 6.1 % (1.7-9.3); Neutrophils # 3.6 K/mm3 (1.8-7.8); Neutrophils % 72.1 % (37.0-80.0); Platelet Count 246 K/mm3 (142-424); Red Blood Count 3.85 M/mm3 (4.20-5.40); Red Cell Distribution Width 14.1 % (11.5-17.5); White Blood Count 4.9 K/mm3 (4.8-10.8)
[2021-08-30 09:22] LABS: Erythrocyte Sedimentation Rate 40 mm/hr (0-30)
[2021-08-30 10:27] LABS: Alanine Aminotransferase 14 U/L (12-78); Albumin Level 3.9 g/dl (3.5-5.0); Albumin/Globulin Ratio 1.7 (1.1-1.8); Alkaline Phosphatase 77 U/L (38-126); Anion Gap 8.8 mEq/L (5-15); Aspartate Amino Transferase 27 U/L (14-36); Bilirubin,Total 0.4 mg/dl (0.2-1.3); Blood Urea Nitrogen 10 mg/dl (7-17); Calcium 8.5 mg/dl (8.4-10.2); Carbon Dioxide 29 mmol/L (22.0-30.0); Chloride 107 mmol/L (98-107); Estimated Glomerular Filt Rate 124 ml/min (>60); GFR (African American) 150 ML/MIN (>60); Globulin 2.3 g/dL (1.3-3.2); Glucose 90 mg/dl (74-100); Potassium 3.8 mmoL/L (3.5-5.1); Sodium 141 mmol/L (136-145); Total Protein,Serum 6.2 g/dl (6.3-8.2)
[2021-08-30 10:39] LABS: Intact Parathyroid Hormone 219.5 pg/mL (7.5-53.5)
[2021-08-30 10:44] LABS: 25-OH Vitamin D, Total 44.7 ng/mL (30-100)
[2021-08-30 11:33] LABS: Vitamin B12 515 pg/mL (239-931)
== END ==
PROVIDERS: Visit Provider Nurse Practitioner Women's Health
DX: M79.675 Pain in left toe(s) (principal); S92.512A Displaced fracture of proximal phalanx of left lesser toe(s), initial encounter for closed fracture; M81.0 Age-related osteoporosis without current pathological fracture; E66.9 Obesity, unspecified; Z68.43 Body mass index [BMI] 50.0-59.9, adult
CPT/HCPCS: 36415; 73630; 80053; 82306; 82607; 82746; 83970; 85025; 85651; 86140

== ENCOUNTER 2021-09-06 13:30 | Emergency (ER) | payer MEDICARE, SELFPAY ==
[2021-09-06 13:54] VITALS: BMI 45.7
[2021-09-06 13:56] VITALS: BP 160/83; PULSE 67; O2SAT 91
[2021-09-06 13:57] VITALS: BP 183/93; PULSE 76; RESP 18; TEMP 36.7; O2SAT 95; BMI 45.7
--- NOTE | 2021-09-06 13:57 | XR_ITS ---
PROCEDURE: XR CHEST PORTABLE CLINICAL HISTORY: WEAKNESS COMPARISON: CT CTAC CTA-CHEST from 10/11/2014 CR CXR CHEST(2 VIEWS-NOT PORTABLE) from 09/05/2017 CR XR CHEST 2V from 09/23/2019 DX XR CHEST 2V from 08/03/2020 FINDINGS: The cardiomediastinal silhouette and pulmonary vascularity are within normal limits. There is mild thickening of the right minor fissure. Suspect small pericardial fat pad in the left lung base Degenerative changes of the shoulders IMPRESSION: No acute findings. Dictated by: John Stone MD 09/06/2021 14:48 John Stone MD in [place] 09/06/2021 14:48
[2021-09-06 14:02] VITALS: BP 183/93; PULSE 65; O2SAT 83
[2021-09-06 14:05] LABS: Influenza A, PCR Not Detected (NotDetected); Influenza B, PCR Not Detected (NotDetected)
[2021-09-06 14:09] LABS: Basophils % 0.3 % (0.1-2.0); Chloride 99 mmol/L (98-107); Eosinophils % 0.1 % (0.1-12.0); Hematocrit 33.4 % (37.0-47.0); Hemoglobin 11.1 g/dL (12.2-16.2); Lymphocytes # 0.3 K/mm3 (0.7-4.5); Lymphocytes % 5.9 % (10-50); Mean Corpuscular HGB Conc 33.3 g/dL (31.8-35.4); Mean Corpuscular Hemoglobin 31.8 pg (27.0-31.2); Mean Corpuscular Volume 95.4 fl (81-99); Mean Platelet Volume 8.8 fl (7.4-10.4); Monocytes # 0.3 K/mm3 (0.1-1.0); Monocytes % 4.6 % (1.7-9.3); Neutrophils # 5.1 K/mm3 (1.8-7.8); Neutrophils % 89.2 % (37.0-80.0); Platelet Count 230 K/mm3 (142-424); Potassium 3.8 mmoL/L (3.5-5.1); Red Cell Distribution Width 14.2 % (11.5-17.5); Sodium 136 mmol/L (136-145); White Blood Count 5.7 K/mm3 (4.8-10.8)
[2021-09-06 14:11] LABS: Alanine Aminotransferase 10 U/L (12-78); Aspartate Amino Transferase 28 U/L (14-36); Blood Urea Nitrogen 6 mg/dl (7-17); Creatinine Clearance Estimated 44 mL/min (50-200); Estimated Glomerular Filt Rate 124 ml/min (>60); GFR (African American) 150 ML/MIN (>60); MANUAL DIFFERENTIAL MANUAL DIFFERENTIAL (MANUAL DIFF)
[2021-09-06 14:12] LABS: Albumin/Globulin Ratio 1.5 (1.1-1.8); Alkaline Phosphatase 92 U/L (38-126); Anion Gap 9.8 mEq/L (5-15); Bilirubin,Total 0.5 mg/dl (0.2-1.3); Carbon Dioxide 31 mmol/L (22.0-30.0); Globulin 2.6 g/dL (1.3-3.2); Glucose 155 mg/dl (74-100); Total Protein,Serum 6.6 g/dl (6.3-8.2)
[2021-09-06 14:26] LABS: Coronavirus 19, PCR Detected (NotDetected)
[2021-09-06 14:31] VITALS: BP 183/83; PULSE 62; O2SAT 98
[2021-09-06 14:38] LABS: Eosinophils % 1 % (0-3); Lymphocytes % 7 % (10-50); Monocytes % 3 % (2-9); Neutrophils % 88 % (42-76); Platelet Estimate Normal; RBC Morphology Normal; Total Cells Counted 100
--- NOTE | 2021-09-06 14:43 | HMH.EDGENADL ---
ED Disposition Clinical Impression: COVID-19 Disposition: Home, Self-Care Condition on Discharge: Good Instructions: Nausea and Vomiting-Adult Prescriptions: Ondansetron [Zofran 4mg ODT] 4 mg PO TIDP PRN #12 tab PRN Reason: Nausea [facility] Referrals: Aye Pino APRN [Primary Care Provider] - - Critical Care Critical Care Time: No Attestation: On 09/06/21, the high probability of a clinically significant, sudden or life threatening deterioration of the following system(s) required my full and direct attention, intervention and personal management. The time I documented below is in addition to time spent performing reported procedures but includes the following listed in this critical care notation. Medical Decision Making - Pieter Inquiry Pt receiving controlled substance: No Vital Signs: 09/06/21 13:56 09/06/21 13:57 09/06/21 14:02 Temperature 98.1 F Temperature Source Oral Pulse Rate 67 65 Pulse Rate [Right Radial] 76 Respiratory Rate 18 Blood Pressure 160/83 H 183/93 H Blood Pressure [Right Arm] 183/93 H Blood Pressure Mean 88 123 Blood Pressure Mean [Right Arm] 123 Blood Pressure Source [Right Arm] Automatic Cuff Blood Pressure Position [Right Arm] Supine 02 Sat by Pulse Oximetry 91 L 95 83 L Oxygen Delivery Method Room Air 09/06/21 14:31 Temperature Temperature Source Pulse Rate 62 Pulse Rate [Right Radial] Respiratory Rate Blood Pressure 183/83 H Blood Pressure [Right Arm] Blood Pressure Mean 108 Blood Pressure Mean [Right Arm] Blood Pressure Source [Right Arm] Blood Pressure Position [Right Arm] 02 Sat by Pulse Oximetry 98 Oxygen Delivery Method - Lab Data Lab Results 09/06/21 13:50: WBC 5.7, RBC 3.50 L, Hgb 11.1 L, Hct 33.4 L, MCV 95.4, MCH 31.8 H, MCHC 33.3, RDW 14.2, Plt Count 230, MPV 8.8, Neut % (Auto) 89.2 H, Lymph % (Auto) 5.9 L, [place] % (Auto) 4.6, Eos % (Auto) 0.1, Baso % (Auto) 0.3, Neut # (Auto) 5.1, Lymph # (Auto) 0.3 L, [place] # (Auto) 0.3, Eos # (Auto) 0.0, Baso # (Auto) 0.0, Total Counted 100, Neutrophils % (Manual) 88 H, Band Neutrophils % 1.0, Lymphocytes % (Manual) 7 L, Monocytes % (Manual) 3, Eosinophils % (Manual) 1, Platelet Estimate Normal, RBC Morphology Normal 09/06/21 13:50: Sodium 136, Potassium 3.8, Chloride 99, Carbon Dioxide 31 H, Anion Gap 9.8, BUN 6 L, Creatinine 0.50 L, Estimated Creat Clear 44, Estimated GFR 124, Est GFR ( Amer) 150, Glucose 155 H, Calcium 9.0, Total Bilirubin 0.5, AST 28, ALT 10 L, Alkaline Phosphatase 92, Total Protein 6.6, Albumin 4.0, Globulin 2.6, Albumin/Globulin Ratio 1.5 09/06/21 13:50: SARS-CoV-2 (PCR) Detected A, Influenza A Untype (PCR) Not detected, Influenza Type B (PCR) Not detected Result diagrams: 09/06/21 13:50 09/06/21 13:50 Orders (Tests/Meds): ED MEDICATIONS Discontinued Medications Generic Name Dose Route Start Last Admin Trade Name Freq PRN Reason Stop Dose Admin Acetaminophen 500 mg 09/06/21 15:05 09/06/21 15:08 Acetaminophen 500mg Tab PO 09/06/21 15:06 500 mg ONCE ONE Administration Sodium Chloride 1,000 mls @ 999 mls/hr 09/06/21 14:00 09/06/21 13:58 Sod Chlor 0.9% 1000ml Bag IV 09/06/21 15:00 999 mls/hr .Q1H1M JA Administration Ondansetron HCl 4 mg 09/06/21 13:57 09/06/21 13:58 Ondansetron 4mg/2ml Vial IV 09/06/21 13:58 4 mg ONCE ONE Administration Medical Decision Narrative: DDx includes but not limited to gastroenteritis, electrolyte abnormality, covid 19 infection, migraine, dehydration. HDS, NAD, well appearing, mild generalized TTP in abd without peritonitic signs. Labs including cbc, cmp not acutely actionable. Given toradol, zofran, ivf bolus in ED. Remains HDS, well appearing. CXR without acute findings. Has +COVID 19 result on pcr swab. On room air, no acute distress. Given ED return precautions. Given rx for zofran for n/v at home. General Adult HPI - Gene
[2021-09-06 16:21] VITALS: BP 180/87; PULSE 87; RESP 18; TEMP 36.8; O2SAT 100
== END 2021-09-06 16:24 | disposition home or self-care (01) ==
PROVIDERS: Emergency Provider Student in an Organized Health Care Education/Training Program; PCP Nurse Practitioner Family
DX: U07.1 COVID-19 (principal); I10 Essential (primary) hypertension; E78.5 Hyperlipidemia, unspecified; I25.2 Old myocardial infarction
CPT/HCPCS: 71045; 80053; 85007; 85025; 96365; 96375; 99283; C9803; J2405; U0003; U0005

== ENCOUNTER → 2021-09-11 07:50 | Outpatient (CLI) | payer MEDICARE, SELFPAY ==
[2021-09-11 07:56] VITALS: BMI 50.1
[2021-09-11 08:30] VITALS: BP 168/80; PULSE 62; RESP 18; TEMP 36.4; O2SAT 96
[2021-09-11 08:45] VITALS: BP 160/70; PULSE 91; RESP 18; O2SAT 94
[2021-09-11 09:00] VITALS: BP 163/69; PULSE 57; RESP 18; O2SAT 94
[2021-09-11 09:15] VITALS: BP 166/72; PULSE 58; RESP 16; O2SAT 94
[2021-09-11 09:30] VITALS: BP 154/75; PULSE 55; RESP 16; O2SAT 96
== END ==
PROVIDERS: PCP Nurse Practitioner Family; Visit Provider Nurse Practitioner Family
DX: U07.1 COVID-19 (principal); Z23 Encounter for immunization
CPT/HCPCS: 96365

== ENCOUNTER → 2021-10-29 17:44 | Outpatient (CLI) | payer MEDICARE, SELFPAY ==
[2021-10-29 19:08] LABS: Hemoglobin A1C 5.3 % (4.0-6.0)
== END ==
PROVIDERS: Visit Provider Nurse Practitioner Family
DX: E11.9 Type 2 diabetes mellitus without complications (principal)
CPT/HCPCS: 83036

== ENCOUNTER → 2021-11-03 09:21 | Outpatient (CLI) | payer MEDICARE, SELFPAY ==
--- NOTE | 2021-11-03 09:28 | XR_ITS ---
FINAL REPORT CLINICAL HISTORY: fall X 1 week ago, c/o left sided back pain and coccyx pain FINDINGS: SACRUM/COCCYX Three views were obtained. There are postoperative changes from fusion of L5-S1. There is no acute fracture or dislocation. There is significant anterolisthesis of L5 on S1. There are mild degenerative changes of the SI joints. There is no soft tissue abnormality. IMPRESSION: No acute bony abnormality. Reviewed, Interpreted and Dictated by Toby Suárez III, MD Transcribed by Kaley Greer Authenticated by Toby Suárez III, MD on 11/03/2021 11:05:36 AM [facility]
--- NOTE | 2021-11-03 09:28 | XR_ITS ---
FINAL REPORT CLINICAL HISTORY: fall X 1 week ago, c/o left sided back pain and coccyx pain FINDINGS: 5 views of the lumbar spine were obtained. There are postoperative changes from fusion of L5-S1. There is no evidence of fracture or dislocation. There is 18 mm of anterolisthesis of L5 on S1. There is rightward curvature. There are mild and moderate degenerative changes with osteophytes. No paraspinous soft tissue abnormalities identified. IMPRESSION: No acute bony abnormality. Reviewed, Interpreted and Dictated by Toby Suárez III, MD Transcribed by Kaley Greer Authenticated by Toby Suárez III, MD on 11/03/2021 11:05:50 AM [facility]
[2021-11-03 10:30] LABS: Basophils % 0.5 % (0.1-2.0); Hematocrit 36.9 % (37.0-47.0); Hemoglobin 11.9 g/dL (12.2-16.2); Lymphocytes # 0.8 K/mm3 (0.7-4.5); Lymphocytes % 15.1 % (10-50); Mean Corpuscular HGB Conc 32.2 g/dL (31.8-35.4); Mean Corpuscular Volume 99.5 fl (81-99); Mean Platelet Volume 8.3 fl (7.4-10.4); Monocytes # 0.3 K/mm3 (0.1-1.0); Monocytes % 6.5 % (1.7-9.3); Neutrophils # 3.9 K/mm3 (1.8-7.8); Neutrophils % 77.9 % (37.0-80.0); Platelet Count 266 K/mm3 (142-424); Red Blood Count 3.71 M/mm3 (4.20-5.40); Red Cell Distribution Width 14.4 % (11.5-17.5)
[2021-11-03 14:42] LABS: Alanine Aminotransferase 131 U/L (12-78); Albumin/Globulin Ratio 1.9 (1.1-1.8); Alkaline Phosphatase 138 U/L (38-126); Aspartate Amino Transferase 95 U/L (14-36); Bilirubin,Total 0.5 mg/dl (0.2-1.3); Blood Urea Nitrogen 14 mg/dl (7-17); Calcium 9.6 mg/dl (8.4-10.2); Carbon Dioxide 24 mmol/L (22.0-30.0); Chloride 106 mmol/L (98-107); Estimated Glomerular Filt Rate 100 ml/min (>60); GFR (African American) 121 ML/MIN (>60); Globulin 2.1 g/dL (1.3-3.2); Glucose 88 mg/dl (74-100); Sodium 138 mmol/L (136-145); Total Protein,Serum 6.1 g/dl (6.3-8.2)
[2021-11-03 14:48] LABS: C-Reactive Protein 6.1 mg/L (0-4)
[2021-11-03 14:55] LABS: Intact Parathyroid Hormone 58.8 pg/mL (7.5-53.5)
[2021-11-03 15:01] LABS: 25-OH Vitamin D, Total 39.6 ng/mL (30-100)
[2021-11-03 15:49] LABS: Vitamin B12 504 pg/mL (239-931)
[2021-11-03 15:54] LABS: Folate 8.51 ng/mL
[2021-11-03 16:35] LABS: Erythrocyte Sedimentation Rate 32 mm/hr (0-30)
[2021-11-04 12:37] LABS: Hep A Ab, IgM Negative (Negative); Hepatitis B Core Antibody IgM Negative (Negative); Hepatitis B Surface Antigen Negative (Negative); Hepatitis C Antibody <0.1 s/co ratio (0.0-0.9)
[2021-11-06 06:30] LABS: QuantiFERON-TB Gold Plus Negative (Negative)
== END ==
PROVIDERS: Nurse Practitioner Women's Health; PCP Nurse Practitioner Family; Visit Provider Internal Medicine
DX: M54.9 Dorsalgia, unspecified (principal); M54.50 Low back pain, unspecified; M06.09 Rheumatoid arthritis without rheumatoid factor, multiple sites; M81.0 Age-related osteoporosis without current pathological fracture; E66.9 Obesity, unspecified; Z68.43 Body mass index [BMI] 50.0-59.9, adult; Z79.899 Other long term (current) drug therapy; R94.5 Abnormal results of liver function studies
CPT/HCPCS: 36415; 72110; 72220; 80053; 80074; 82306; 82607; 82746; 83970; 85025; 85651; 86140; 86480

== ENCOUNTER → 2021-11-22 08:54 | Outpatient (CLI) | payer MEDICARE, SELFPAY ==
[2021-11-22 10:48] LABS: Chol/HDL Ratio 2.7 (1-3.5); Cholesterol 223 mg/dl (140-200); HDL Cholesterol 84 mg/dl (40-60); Triglycerides 64 mg/dl (30-150); VLDL Cholesterol 13 mg/dL (0-40)
[2021-11-22 10:59] LABS: Direct LDL Cholesterol 114.98 mg/dL (100-129)
== END ==
PROVIDERS: PCP Nurse Practitioner Family; Visit Provider Internal Medicine
DX: M06.09 Rheumatoid arthritis without rheumatoid factor, multiple sites (principal); M81.0 Age-related osteoporosis without current pathological fracture; R53.83 Other fatigue; Z13.220 Encounter for screening for lipoid disorders; Z79.899 Other long term (current) drug therapy
CPT/HCPCS: 36415; 80061

== ENCOUNTER → 2021-12-06 09:34 | Outpatient (CLI) | payer MEDICARE, SELFPAY ==
[2021-12-06 10:32] LABS: Alanine Aminotransferase 16 U/L (12-78); Albumin Level 3.6 g/dl (3.5-5.0); Albumin/Globulin Ratio 1.9 (1.1-1.8); Alkaline Phosphatase 78 U/L (38-126); Anion Gap 6.7 mEq/L (5-15); Aspartate Amino Transferase 24 U/L (14-36); Bilirubin,Total 0.5 mg/dl (0.2-1.3); Blood Urea Nitrogen 9 mg/dl (7-17); Calcium 8.1 mg/dl (8.4-10.2); Carbon Dioxide 26 mmol/L (22.0-30.0); Chloride 113 mmol/L (98-107); Estimated Glomerular Filt Rate 124 ml/min (>60); GFR (African American) 150 ML/MIN (>60); Globulin 1.9 g/dL (1.3-3.2); Glucose 91 mg/dl (74-100); Potassium 3.7 mmoL/L (3.5-5.1); Sodium 142 mmol/L (136-145); Total Protein,Serum 5.5 g/dl (6.3-8.2)
[2021-12-06 10:48] LABS: Free T4 (Free Thyroxine) 0.98 ng/dl (0.78-2.19)
[2021-12-06 11:04] LABS: Thyroid Stimulating Hormone 1.27 uIU/mL (0.465-4.68)
[2021-12-06 11:39] LABS: Vitamin B12 303 pg/mL (239-931)
== END ==
PROVIDERS: Visit Provider Nurse Practitioner Family
DX: M06.09 Rheumatoid arthritis without rheumatoid factor, multiple sites (principal); M85.89 Other specified disorders of bone density and structure, multiple sites; R53.83 Other fatigue; Z79.899 Other long term (current) drug therapy
CPT/HCPCS: 36415; 80053; 82306; 82607; 82746; 84439; 84443

== ENCOUNTER 2021-12-28 13:47 | Emergency (ER) | payer MEDICARE, SELFPAY ==
[2021-12-28 13:48] VITALS: BP 113/74; PULSE 118; RESP 16; TEMP 36.8; O2SAT 96; BMI 46.0
[2021-12-28 14:28] VITALS: BP 113/74; PULSE 118; RESP 18; TEMP 36.8; O2SAT 96; BMI 45.7
--- NOTE | 2021-12-28 15:00 | HMH.EDNVD ---
ED Disposition Clinical Impression: Nausea Diarrhea Qualifiers: Diarrhea type: unspecified type Qualified Code(s): R19.7 - Diarrhea, unspecified Disposition: Home, Self-Care Condition on Discharge: Good Instructions: Diarrhea, DI for Nausea -- Adult Additional Instructions: follow up pcp return here for worse Prescriptions: Ondansetron [Zofran 4mg ODT] 4 mg PO TIDP PRN #12 tab PRN Reason: Nausea And Vomiting Transmission Status: Pending to [place] [id number] Referrals: Aye Pino APRN [Primary Care Provider] - - Critical Care Critical Care Time: No Attestation: On 12/28/21, the high probability of a clinically significant, sudden or life threatening deterioration of the following system(s) required my full and direct attention, intervention and personal management. The time I documented below is in addition to time spent performing reported procedures but includes the following listed in this critical care notation. Medical Decision Making - Medical Records Medical records reviewed: Yes: I reviewed the patient's medical records. - Pieter Inquiry Pt receiving controlled substance: No Vital Signs: 12/28/21 13:48 12/28/21 14:28 Temperature 98.3 F 98.3 F Temperature Source Oral Oral Pulse Rate [Right Radial] 118 H 118 H Respiratory Rate 16 18 Blood Pressure [Right Arm] 113/74 113/74 Blood Pressure Mean [Right Arm] 87 87 Blood Pressure Source [Right Arm] Automatic Cuff Blood Pressure Position [Right Arm] Sitting 02 Sat by Pulse Oximetry 96 96 Oxygen Delivery Method Room Air Room Air - Lab Data Lab Results 12/28/21 15:15: Urine Color Yellow, Urine Appearance Cloudy, Urine pH 6.0, Ur Specific [place] 1.025, Urine Protein 1+, Urine Glucose (UA) Negative, Urine Ketones 2+, Urine Blood 1+, Urine Nitrate Negative, Urine Bilirubin 2+ A, Urine Urobilinogen 0.2, Ur Leukocyte Esterase 2+ A, Urine RBC 5-10, Urine WBC 3-5, Ur Squamous Epith Cells 3-5, Amorphous Sediment 1+ 12/28/21 15:25: WBC 4.8, RBC 4.24, Hgb 13.6, Hct 42.2, MCV 99.4 H, MCH 32.0 H, MCHC 32.2, RDW 13.8, Plt Count 263, MPV 8.4, Neut % (Auto) 83.4 H, Lymph % (Auto) 9.2 L, [place] % (Auto) 5.7, Eos % (Auto) 0.3, Baso % (Auto) 1.4, Neut # (Auto) 4.0, Lymph # (Auto) 0.4 L, [place] # (Auto) 0.3, Eos # (Auto) 0.0, Baso # (Auto) 0.1 12/28/21 15:25: Sodium 136, Potassium 3.5, Chloride 103, Carbon Dioxide 26, Anion Gap 10.5, BUN 10, Creatinine 0.60, Estimated Creat Clear 44, Estimated GFR 100, Est GFR ( Amer) 121, Glucose 116 H, Calcium 7.6 L, Total Bilirubin 0.8, AST 73 H, ALT 53, Alkaline Phosphatase 111, Total Protein 7.3 D, Albumin 4.5, Globulin 2.8, Albumin/Globulin Ratio 1.6, Lipase 19 L Result diagrams: 12/28/21 15:25 12/28/21 15:25 Orders (Tests/Meds): ED MEDICATIONS Discontinued Medications Generic Name Dose Route Start Last Admin Trade Name Freq PRN Reason Stop Dose Admin Acetaminophen 1,000 mg 12/28/21 14:59 12/28/21 15:32 Acetaminophen 500mg Tab PO 12/28/21 15:00 1,000 mg ONCE ONE Administration Sodium Chloride 1,000 mls @ 999 mls/hr 12/28/21 15:00 12/28/21 15:32 Sod Chlor 0.9% 1000ml Bag IV 12/28/21 16:00 999 mls/hr .Q1H1M JA Administration Ondansetron HCl 4 mg 12/28/21 15:27 12/28/21 15:32 Ondansetron 4mg/2ml Vial IV 12/28/21 15:28 4 mg ONCE ONE Administration ORDERS Category Date Time Status Urine Culture Stat Micro 12/28/21 15:15 Received Medical Decision Narrative: reeval 1638, feels much better, ok with plan to rx and f/u prn Nausea/Vomiting/Diarrhea HPI - General Stated complaint: fever, body aches, diarrhea, h/a Time Seen by Provider: 12/28/21 15:00 Mode of Arrival: Wheelchair Source of Information: Patient Limitations: No Limitations Description of Symptoms (Recalled from ER Triage Doc. by RN): pt reports diarrhea and low grade fever x2 days. Denies n/v. Denies abd pain. Pt reports poor PO intake. Pt states did not take her normal medications la
[2021-12-28 15:31] LABS: Microscopic, Urine URINE MICROSCOPIC (MICROSCOPIC)
[2021-12-28 15:38] LABS: Basophils # 0.1 K/mm3 (0-0.2); Basophils % 1.4 % (0.1-2.0); Eosinophils % 0.3 % (0.1-12.0); Hematocrit 42.2 % (37.0-47.0); Hemoglobin 13.6 g/dL (12.2-16.2); Lymphocytes # 0.4 K/mm3 (0.7-4.5); Lymphocytes % 9.2 % (10-50); Mean Corpuscular HGB Conc 32.2 g/dL (31.8-35.4); Mean Corpuscular Volume 99.4 fl (81-99); Mean Platelet Volume 8.4 fl (7.4-10.4); Monocytes # 0.3 K/mm3 (0.1-1.0); Monocytes % 5.7 % (1.7-9.3); Neutrophils % 83.4 % (37.0-80.0); Platelet Count 263 K/mm3 (142-424); Red Blood Count 4.24 M/mm3 (4.20-5.40); Red Cell Distribution Width 13.8 % (11.5-17.5); White Blood Count 4.8 K/mm3 (4.8-10.8)
[2021-12-28 15:45] LABS: Appearance,Urine CLOUDY (Clear); Blood, Urine 1+ (Negative); Color,Urine YELLOW (Yellow); Glucose,Urine (UA) Negative (Negative); Ketones,Urine 2+ (Negative); Leukocyte Esterase,Urine 2+ (Negative); Nitrate,Urine Negative (Negative); Protein,Urine 1+ (Negative); Specific Gravity, Urine 1.025 (1.005-1.030); Urobilinogen,Urine 0.2 EU/dl (0.2)
[2021-12-28 16:00] VITALS: BP 153/75; PULSE 89; O2SAT 99
[2021-12-28 16:01] LABS: Bilirubin,Urine 2+ (Negative)
[2021-12-28 16:03] LABS: Amorphous Sediment,Urine 1+ /lpf
[2021-12-28 16:20] LABS: Chloride 103 mmol/L (98-107); Potassium 3.5 mmoL/L (3.5-5.1); Sodium 136 mmol/L (136-145)
[2021-12-28 16:23] LABS: Alanine Aminotransferase 53 U/L (12-78); Albumin Level 4.5 g/dl (3.5-5.0); Albumin/Globulin Ratio 1.6 (1.1-1.8); Alkaline Phosphatase 111 U/L (38-126); Anion Gap 10.5 mEq/L (5-15); Aspartate Amino Transferase 73 U/L (14-36); Bilirubin,Total 0.8 mg/dl (0.2-1.3); Blood Urea Nitrogen 10 mg/dl (7-17); Calcium 7.6 mg/dl (8.4-10.2); Carbon Dioxide 26 mmol/L (22.0-30.0); Creatinine Clearance Estimated 44 mL/min (50-200); Estimated Glomerular Filt Rate 100 ml/min (>60); GFR (African American) 121 ML/MIN (>60); Globulin 2.8 g/dL (1.3-3.2); Glucose 116 mg/dl (74-100); Lipase 19 U/L (23-300); Total Protein,Serum 7.3 g/dl (6.3-8.2)
[2021-12-28 16:30] VITALS: BP 161/85; PULSE 86; O2SAT 100
[2021-12-28 16:43] VITALS: BP 161/85; PULSE 86; RESP 17; TEMP 36.8; O2SAT 100
== END 2021-12-28 16:44 | disposition home or self-care (01) ==
PROVIDERS: Emergency Provider Emergency Medicine; PCP Nurse Practitioner Family
DX: R11.0 Nausea (principal); R19.7 Diarrhea, unspecified; B96.1 Klebsiella pneumoniae [K. pneumoniae] as the cause of diseases classified elsewhere; R51.9 Headache, unspecified; R50.9 Fever, unspecified; I10 Essential (primary) hypertension; I25.2 Old myocardial infarction; E78.5 Hyperlipidemia, unspecified; M79.10 Myalgia, unspecified site; M81.0 Age-related osteoporosis without current pathological fracture; M06.9 Rheumatoid arthritis, unspecified; M19.90 Unspecified osteoarthritis, unspecified site; J45.909 Unspecified asthma, uncomplicated; Z79.899 Other long term (current) drug therapy; Z88.5 Allergy status to narcotic agent; Z82.49 Family history of ischemic heart disease and other diseases of the circulatory system; Z87.891 Personal history of nicotine dependence; Z83.3 Family history of diabetes mellitus; Z82.5 Family history of asthma and other chronic lower respiratory diseases
CPT/HCPCS: 80053; 81001; 83690; 85025; 87086; 87088; 87186; 96361; 96365; 96374; 96375; 99284; J2405

== ENCOUNTER → 2022-03-08 12:22 | Outpatient (CLI) | payer MEDICARE, SELFPAY ==
[2022-03-08 12:54] LABS: Basophils % 0.7 % (0.1-2.0); Eosinophils % 0.1 % (0.1-12.0); Hematocrit 33.2 % (37.0-47.0); Lymphocytes # 1.2 K/mm3 (0.7-4.5); Lymphocytes % 27.2 % (10-50); Mean Corpuscular HGB Conc 33.1 g/dL (31.8-35.4); Mean Corpuscular Volume 96.6 fl (81-99); Mean Platelet Volume 8.5 fl (7.4-10.4); Monocytes # 0.3 K/mm3 (0.1-1.0); Monocytes % 7.4 % (1.7-9.3); Neutrophils # 2.7 K/mm3 (1.8-7.8); Neutrophils % 64.6 % (37.0-80.0); Platelet Count 237 K/mm3 (142-424); Red Blood Count 3.44 M/mm3 (4.20-5.40); Red Cell Distribution Width 14.4 % (11.5-17.5); White Blood Count 4.2 K/mm3 (4.8-10.8)
[2022-03-08 13:24] LABS: Alanine Aminotransferase 15 U/L (12-78); Albumin Level 3.5 g/dl (3.5-5.0); Albumin/Globulin Ratio 1.6 (1.1-1.8); Alkaline Phosphatase 96 U/L (38-126); Anion Gap 9.7 mEq/L (5-15); Aspartate Amino Transferase 27 U/L (14-36); Bilirubin,Total 0.3 mg/dl (0.2-1.3); Blood Urea Nitrogen 10 mg/dl (7-17); Calcium 8.9 mg/dl (8.4-10.2); Carbon Dioxide 26 mmol/L (22.0-30.0); Chloride 108 mmol/L (98-107); Chol/HDL Ratio 2.4 (1-3.5); Cholesterol 175 mg/dl (140-200); Estimated Glomerular Filt Rate 100 ml/min (>60); GFR (African American) 121 ML/MIN (>60); Globulin 2.2 g/dL (1.3-3.2); Glucose 94 mg/dl (74-100); HDL Cholesterol 73 mg/dl (40-60); Potassium 3.7 mmoL/L (3.5-5.1); Sodium 140 mmol/L (136-145); Total Protein,Serum 5.7 g/dl (6.3-8.2); Triglycerides 75 mg/dl (30-150); VLDL Cholesterol 15 mg/dL (0-40)
[2022-03-08 13:32] LABS: Erythrocyte Sedimentation Rate 62 mm/hr (0-30)
[2022-03-08 13:35] LABS: Direct LDL Cholesterol 76.57 mg/dL (100-129)
[2022-03-11 15:11] LABS: QuantiFERON-TB Gold Plus Negative (Negative)
== END ==
PROVIDERS: PCP Nurse Practitioner Family; Visit Provider Internal Medicine
DX: M06.09 Rheumatoid arthritis without rheumatoid factor, multiple sites (principal); R53.83 Other fatigue; Z13.220 Encounter for screening for lipoid disorders; Z79.899 Other long term (current) drug therapy
CPT/HCPCS: 36415; 80053; 80061; 85025; 85651; 86480

== ENCOUNTER → 2022-04-22 10:55 | Outpatient (CLI) | payer MEDICARE, SELFPAY ==
--- NOTE | 2022-04-22 10:59 | XR_ITS ---
FINAL REPORT CLINICAL HISTORY: knee pain FINDINGS: 4 weight-bearing views of the left knee were obtained. There is no acute fracture or dislocation. There has been the arthroplasty. The soft tissues are unremarkable. IMPRESSION: Postoperative change without acute process. Reviewed, Interpreted and Dictated by Toby Suárez III, MD Transcribed by Jagjit Finnegan Authenticated and [facility]
--- NOTE | 2022-04-22 10:59 | XR_ITS ---
FINAL REPORT CLINICAL HISTORY: knee pain FINDINGS: 4 weight-bearing views of the right knee were obtained. There is no acute fracture or dislocation. There has been the arthroplasty. The soft tissues are unremarkable. IMPRESSION: Postoperative change without acute process. Reviewed, Interpreted and Dictated by Toby Suárez III, MD Transcribed by Jagjit Finnegan Authenticated and [facility]
== END ==
PROVIDERS: PCP Nurse Practitioner Family; Visit Provider Orthopaedic Surgery
DX: M25.561 Pain in right knee (principal); M25.562 Pain in left knee
CPT/HCPCS: 73564

== ENCOUNTER → 2022-05-05 08:59 | Outpatient (CLI) | payer MEDICARE, SELFPAY ==
[2022-05-05 10:32] LABS: Basophils % 0.3 % (0.1-2.0); Eosinophils % 0.1 % (0.1-12.0); Hematocrit 34.3 % (37.0-47.0); Hemoglobin 11.4 g/dL (12.2-16.2); Lymphocytes # 0.8 K/mm3 (0.7-4.5); Lymphocytes % 14.4 % (10-50); Mean Corpuscular HGB Conc 33.2 g/dL (31.8-35.4); Mean Corpuscular Hemoglobin 31.1 pg (27.0-31.2); Mean Corpuscular Volume 93.8 fl (81-99); Mean Platelet Volume 7.7 fl (7.4-10.4); Monocytes # 0.5 K/mm3 (0.1-1.0); Monocytes % 8.8 % (1.7-9.3); Neutrophils # 4.3 K/mm3 (1.8-7.8); Neutrophils % 76.4 % (37.0-80.0); Platelet Count 237 K/mm3 (142-424); Red Blood Count 3.65 M/mm3 (4.20-5.40); Red Cell Distribution Width 13.7 % (11.5-17.5); White Blood Count 5.7 K/mm3 (4.8-10.8)
[2022-05-05 10:45] LABS: Chloride 104 mmol/L (98-107); Potassium 4.5 mmoL/L (3.5-5.1); Sodium 135 mmol/L (136-145)
[2022-05-05 10:48] LABS: Alanine Aminotransferase 12 U/L (12-78); Albumin Level 3.7 g/dl (3.5-5.0); Albumin/Globulin Ratio 1.8 (1.1-1.8); Alkaline Phosphatase 90 U/L (38-126); Anion Gap 7.5 mEq/L (5-15); Aspartate Amino Transferase 26 U/L (14-36); Bilirubin,Total 0.6 mg/dl (0.2-1.3); Blood Urea Nitrogen 13 mg/dl (7-17); Calcium 9.2 mg/dl (8.4-10.2); Carbon Dioxide 28 mmol/L (22.0-30.0); Estimated Glomerular Filt Rate 84 ml/min (>60); GFR (African American) 101 ML/MIN (>60); Globulin 2.1 g/dL (1.3-3.2); Glucose 96 mg/dl (74-100); Total Protein,Serum 5.8 g/dl (6.3-8.2)
[2022-05-05 10:53] LABS: C-Reactive Protein 4.4 mg/L (0-4)
[2022-05-05 11:23] LABS: Erythrocyte Sedimentation Rate 25 mm/hr (0-30)
== END ==
PROVIDERS: PCP Nurse Practitioner Family; Visit Provider Internal Medicine
DX: M06.09 Rheumatoid arthritis without rheumatoid factor, multiple sites (principal); Z79.899 Other long term (current) drug therapy
CPT/HCPCS: 36415; 80053; 85025; 85651; 86140

== ENCOUNTER → 2022-08-08 10:31 | Outpatient (CLI) | payer MEDICARE, SELFPAY ==
[2022-08-08 11:01] LABS: Basophils # 0.1 K/mm3 (0-0.2); Basophils % 1.3 % (0.1-2.0); Eosinophils % 0.1 % (0.1-12.0); Hematocrit 37.7 % (37.0-47.0); Hemoglobin 12.1 g/dL (12.2-16.2); Lymphocytes % 20.1 % (10-50); Mean Corpuscular Hemoglobin 31.8 pg (27.0-31.2); Mean Corpuscular Volume 99.3 fl (81-99); Mean Platelet Volume 8.9 fl (7.4-10.4); Monocytes # 0.3 K/mm3 (0.1-1.0); Monocytes % 6.3 % (1.7-9.3); Neutrophils # 3.7 K/mm3 (1.8-7.8); Neutrophils % 72.2 % (37.0-80.0); Platelet Count 253 K/mm3 (142-424); Red Cell Distribution Width 13.9 % (11.5-17.5); White Blood Count 5.1 K/mm3 (4.8-10.8)
[2022-08-08 11:26] LABS: Alanine Aminotransferase 16 U/L (12-78); Albumin Level 3.7 g/dl (3.5-5.0); Albumin/Globulin Ratio 1.8 (1.1-1.8); Alkaline Phosphatase 120 U/L (38-126); Anion Gap 11.2 mEq/L (5-15); Aspartate Amino Transferase 31 U/L (14-36); Bilirubin,Total 0.5 mg/dl (0.2-1.3); Blood Urea Nitrogen 12 mg/dl (7-17); Calcium 8.9 mg/dl (8.4-10.2); Carbon Dioxide 30 mmol/L (22.0-30.0); Chloride 101 mmol/L (98-107); Estimated Glomerular Filt Rate 84 ml/min (>60); GFR (African American) 101 ML/MIN (>60); Globulin 2.1 g/dL (1.3-3.2); Glucose 75 mg/dl (74-100); Potassium 4.2 mmoL/L (3.5-5.1); Sodium 138 mmol/L (136-145); Total Protein,Serum 5.8 g/dl (6.3-8.2)
[2022-08-08 11:32] LABS: C-Reactive Protein 6.9 mg/L (0-4)
[2022-08-08 11:33] LABS: Erythrocyte Sedimentation Rate 33 mm/hr (0-30)
[2022-08-08 11:42] LABS: 25-OH Vitamin D, Total 33.7 ng/mL (30-100)
[2022-08-08 12:31] LABS: Vitamin B12 279 pg/mL (239-931)
[2022-08-08 12:35] LABS: Folate 7.56 ng/mL
== END ==
PROVIDERS: PCP Nurse Practitioner Family; Visit Provider Nurse Practitioner Women's Health
DX: M06.09 Rheumatoid arthritis without rheumatoid factor, multiple sites (principal); E55.9 Vitamin D deficiency, unspecified; D51.1 Vitamin B12 deficiency anemia due to selective vitamin B12 malabsorption with proteinuria; M81.0 Age-related osteoporosis without current pathological fracture; Z79.899 Other long term (current) drug therapy
CPT/HCPCS: 36415; 80053; 82306; 82607; 82746; 85025; 85651; 86140

== ENCOUNTER → 2022-09-14 13:00 | Outpatient (CLI) | payer MEDICARE, SELFPAY ==
--- NOTE | 2022-09-14 13:05 | MM_ITS ---
PROCEDURE INFORMATION: Exam: US Left Breast, Complete US Right Breast, Complete MG Bilateral Diagnostic Breast Tomosynthesis Exam date and time: 09/14/2022 2:46 PM Age: 66 years old Clinical indication: Concern for breast bilateral pain. Her maternal grandmother had breast cancer. TECHNIQUE: Imaging protocol: Complete ultrasound of all four quadrants of the Left breast and the retroareolar regions, including ultrasound of the axilla when performed. Complete ultrasound of all four quadrants of the Right breast and the retroareolar regions, including ultrasound of the axilla when performed. Bilateral Diagnostic tomosynthesis and 2D mammography including computer-aided detection (CAD) when performed. Unilateral or bilateral exam. COMPARISON: MG MM DIG MAMM BI DX W/CAD 09/14/2022 1:34 PM FINDINGS: MAMMOGRAPHY: Breast composition: There are scattered areas of fibroglandular density. Mass: None. Architectural distortion: None. Calcifications: No suspicious calcifications. Asymmetric density: None. Skin thickening: None. Axillary adenopathy: None. ULTRASOUND: Sonographic images of both breasts including the retroareolar regions, all 4 quadrants and the axilla do not demonstrate any solid or cystic masses. No axillary adenopathy demonstrated. IMPRESSION: No mammographic or sonographic evidence of malignancy. Further evaluation of a painful abnormality should be based on clinical grounds regardless of radiographic findings or lack thereof. Annual screening mammogram recommended unless otherwise clinically indicated. ASSESSMENT: BI-RADS Category 1: Negative
== END ==
PROVIDERS: PCP Nurse Practitioner Family; Visit Provider Nurse Practitioner Family
DX: N64.4 Mastodynia (principal)
CPT/HCPCS: 76641; 77062; 77066; G0279

== ENCOUNTER → 2022-10-10 13:31 | Outpatient (CLI) | payer MEDICARE, SELFPAY ==
[2022-10-10 14:11] LABS: Basophils % 0.5 % (0.1-2.0); Eosinophils % 0.1 % (0.1-12.0); Hematocrit 34.9 % (37.0-47.0); Hemoglobin 11.5 g/dL (12.2-16.2); Lymphocytes # 1.3 K/mm3 (0.7-4.5); Lymphocytes % 18.7 % (10-50); Mean Corpuscular Hemoglobin 31.8 pg (27.0-31.2); Mean Corpuscular Volume 96.4 fl (81-99); Monocytes # 0.5 K/mm3 (0.1-1.0); Monocytes % 6.9 % (1.7-9.3); Neutrophils # 5.1 K/mm3 (1.8-7.8); Neutrophils % 73.8 % (37.0-80.0); Platelet Count 263 K/mm3 (142-424); Red Blood Count 3.62 M/mm3 (4.20-5.40); Red Cell Distribution Width 14.2 % (11.5-17.5); White Blood Count 6.9 K/mm3 (4.8-10.8)
[2022-10-10 14:31] LABS: Alanine Aminotransferase 16 U/L (12-78); Albumin Level 3.8 g/dl (3.5-5.0); Albumin/Globulin Ratio 1.7 (1.1-1.8); Alkaline Phosphatase 99 U/L (38-126); Anion Gap 9.1 mEq/L (5-15); Aspartate Amino Transferase 28 U/L (14-36); Bilirubin,Total 0.4 mg/dl (0.2-1.3); Blood Urea Nitrogen 14 mg/dl (7-17); Calcium 9.1 mg/dl (8.4-10.2); Carbon Dioxide 27 mmol/L (22.0-30.0); Chloride 105 mmol/L (98-107); Estimated Glomerular Filt Rate 84 ml/min (>60); GFR (African American) 101 ML/MIN (>60); Globulin 2.3 g/dL (1.3-3.2); Glucose 132 mg/dl (74-100); Potassium 4.1 mmoL/L (3.5-5.1); Sodium 137 mmol/L (136-145); Total Protein,Serum 6.1 g/dl (6.3-8.2)
[2022-10-10 14:37] LABS: C-Reactive Protein 6.1 mg/L (0-4)
[2022-10-10 14:48] LABS: 25-OH Vitamin D, Total 30.7 ng/mL (30-100)
[2022-10-10 15:41] LABS: Erythrocyte Sedimentation Rate 38 mm/hr (0-30)
== END ==
PROVIDERS: PCP Nurse Practitioner Family; Visit Provider Nurse Practitioner Women's Health
DX: M06.09 Rheumatoid arthritis without rheumatoid factor, multiple sites (principal); M81.0 Age-related osteoporosis without current pathological fracture; E55.9 Vitamin D deficiency, unspecified; Z79.899 Other long term (current) drug therapy
CPT/HCPCS: 36415; 80053; 82306; 85025; 85651; 86140

== ENCOUNTER → 2022-10-25 14:44 | Outpatient (CLI) | payer MEDICARE, SELFPAY ==
--- NOTE | 2022-10-25 14:48 | XR_ITS ---
FINAL REPORT CLINICAL HISTORY: foot pain, left 2nd hammertoe COMPARISON: August 30, 2021 FINDINGS: LEFT FOOT Three views of the left foot demonstrate no acute fracture or dislocation. There are postoperative changes of the proximal 5th metatarsal. There is hammertoe deformity of the 2nd and 3rd digits. There are mild degenerative changes. There is a plantar calcaneal spur. The soft tissues are unremarkable. IMPRESSION: Hammertoe deformity of 2nd and 3rd digits. Mild degenerative changes with no acute bony abnormality. Reviewed, Interpreted and Dictated by Toby Suárez III, MD Transcribed by Kaley Greer Authenticated and . [facility]
== END ==
PROVIDERS: PCP Nurse Practitioner Family; Visit Provider Podiatrist
DX: M79.672 Pain in left foot (principal)
CPT/HCPCS: 73630

== ENCOUNTER → 2022-11-01 09:49 | Outpatient (CLI) | payer MEDICARE, SELFPAY ==
--- NOTE | 2022-11-01 10:00 | ECG_ITS ---
APPROVED REPORT Exam: Resting ECG HR:61 bpm ECG Measurements Heart Rate 61 AXES OR 143 P 52 QRSd 116 QRS 19 QT 368 T 27 QTc 371 Conclusion SINUS RHYTHM LOW QRS VOLTAGE IN PRECORDIAL LEADS [QRS DEFLECTION < 1.0 mV IN CHEST LEADS] Old anterior changes BORDERLINE ECG UNCONFIRMED REPORT Electronically signed by : Rafael Stephens MD 11/01/2022 19:10:46
--- NOTE | 2022-11-01 10:03 | XR_ITS ---
FINAL REPORT CLINICAL HISTORY: UNEXPLAINED COUGH, PRE-OP COMPARISON: 09/06/2021 FINDINGS: PA and lateral views of the chest were obtained. The cardiac and mediastinal silhouettes are within normal limits. The lungs are clear. There is no pleural effusion or pneumothorax. No acute osseous abnormality is identified. IMPRESSION: No radiographic evidence of acute cardiac or pulmonary disease. Reviewed, Interpreted and Dictated by Juliana Neumann MD Transcribed by Kaley Greer Authenticated and . [facility]
[2022-11-01 11:04] LABS: Basophils % 0.3 % (0.1-2.0); Eosinophils % 0.1 % (0.1-12.0); Hematocrit 36.4 % (37.0-47.0); Hemoglobin 11.9 g/dL (12.2-16.2); Lymphocytes # 1.1 K/mm3 (0.7-4.5); Lymphocytes % 17.5 % (10-50); Mean Corpuscular HGB Conc 32.6 g/dL (31.8-35.4); Mean Corpuscular Hemoglobin 31.1 pg (27.0-31.2); Mean Corpuscular Volume 95.4 fl (81-99); Monocytes # 0.4 K/mm3 (0.1-1.0); Monocytes % 6.5 % (1.7-9.3); Neutrophils # 4.9 K/mm3 (1.8-7.8); Neutrophils % 75.6 % (37.0-80.0); Platelet Count 370 K/mm3 (142-424); Red Blood Count 3.82 M/mm3 (4.20-5.40); Red Cell Distribution Width 13.6 % (11.5-17.5); White Blood Count 6.5 K/mm3 (4.8-10.8)
[2022-11-01 11:38] LABS: Chloride 98 mmol/L (98-107); Potassium 4.9 mmoL/L (3.5-5.1); Sodium 135 mmol/L (136-145)
[2022-11-01 11:41] LABS: Alanine Aminotransferase 12 U/L (12-78); Albumin Level 3.8 g/dl (3.5-5.0); Albumin/Globulin Ratio 1.7 (1.1-1.8); Alkaline Phosphatase 98 U/L (38-126); Anion Gap 9.9 mEq/L (5-15); Aspartate Amino Transferase 24 U/L (14-36); Bilirubin,Total 0.4 mg/dl (0.2-1.3); Blood Urea Nitrogen 12 mg/dl (7-17); Calcium 9.3 mg/dl (8.4-10.2); Carbon Dioxide 32 mmol/L (22.0-30.0); Estimated Glomerular Filt Rate 84 ml/min (>60); GFR (African American) 101 ML/MIN (>60); Globulin 2.3 g/dL (1.3-3.2); Glucose 93 mg/dl (74-100); Total Protein,Serum 6.1 g/dl (6.3-8.2)
[2022-11-01 12:32] LABS: 25-OH Vitamin D, Total 29.1 ng/mL (30-100)
== END ==
LOC: LAB 09:50
PROVIDERS: PCP Nurse Practitioner Family; Visit Provider Podiatrist
DX: M20.42 Other hammer toe(s) (acquired), left foot (principal); M79.672 Pain in left foot; M81.0 Age-related osteoporosis without current pathological fracture; Z01.818 Encounter for other preprocedural examination; E55.9 Vitamin D deficiency, unspecified
CPT/HCPCS: 36415; 71046; 80053; 82306; 85025; 93005

== ENCOUNTER 2022-11-03 11:06 | Day surgery (SDC) | payer MEDICARE, SELFPAY ==
[2022-11-01 09:34] VITALS: BMI 50.3
[2022-11-03 11:30] VITALS: BP 134/64; PULSE 60; RESP 18; TEMP 36.6; O2SAT 99
--- NOTE | 2022-11-03 13:01 | P.PN_ITS ---
[facility] Disclaimer: The information contained in this section may have been updated after the patient was seen, as this information can be updated by other users. Medical History Diastolic dysfunction Surgical History History of back surgery History of cholecystectomy History of foot surgery History of hysterectomy History of total right knee replacement (TKR) Family History Other Family history of TIAs Family history of hyperthyroidism Family history of myocardial infarction Social History Smoking Status: Never smoker alcohol intake: never counseling provided: none substance use type: denies use current occupational status: retired Travel in the last 8 weeks: None household members: significant other housing: house lives independently: Yes marital status: single current occupational exposures/hazards: No caffeine: Yes special madai needs: No agree to transfusion: No do you feel safe at home: Yes victim of physical abuse: No victim of emotional abuse: No victim of sexual abuse: No would you like helpful sources: No [facility] Anesthesia Checklist Patient Identification Patient Identification: Arm Band Structural Data Admitted From: Home Planned Operative Procedure/s: Left 2nd Hammertoe Repair Consent for Planned Operative Procedure(s) Verified: Yes Verified Documents: Surgical Consent and History and Physical NPO Status Verified Time NPO: 00:00 Additional verifications Anesthesia Reactions: No Hx Blood Transfusions: Yes Blood Transfusion Reaction: No Airway Assessment C-Spine Mobility Assessed: Yes TMJ Mobility Assessed: Yes Dentition: Good Dentition (lower. Upper dentures removed) Neurological Assessment Level of Consciousness: Awake and Alert Anesthesia Plan Anesthesia Risk discussed: Yes Anesthesia Plan: Verified ASA Class: III Anesthesia Type: MAC
--- NOTE | 2022-11-03 13:39 | XR_ITS ---
FINAL REPORT CLINICAL HISTORY: LT HAMMERTOE REPAIR IN OR FT: 0:14 COMPARISON: 10/25/2022 FINDINGS: Left foot Three views were obtained. There is no acute fracture or dislocation. There are postoperative changes from ORIF of the 5th metatarsal. Surgical screw is stable. There has been interval placement of a surgical pin through the 2nd toe. There is mild multi joint degenerative disease which is stable. There is new soft tissue edema along the dorsal foot. IMPRESSION: Interval placement of a surgical pin through the 2nd toe. Reviewed, Interpreted and Dictated by Juliana Neumann MD Transcribed by Connie Villanueva Authenticated and [facility]
[2022-11-03 13:41] VITALS: TEMP 38
[2022-11-03 13:58] VITALS: BP 179/90; PULSE 65; RESP 18; TEMP 36.9; O2SAT 99
--- NOTE | 2022-11-03 14:03 | EXP.OP.NOTE ---
Date of procedure: 11/03/22 Pre-op Diagnosis:: Left 2nd hammertoe repair Left foot soft tissue mass Post-op Diagnosis:: Same Procedure performed:: Left 2nd hammertoe repair Left foot soft tissue mass excision Soft tissue reconstruction of angular toe deformity Partial resection of phalanx Surgeon:: Abbey Dale DPM MOP MACHINE OPERATOR:: Franklyn Ríos Anesthesia: MAC and local (20cc 0.5% marcaine plain) Estimated blood loss (mL): 10 Clinical Note:: Patient is a 66-year-old female with a history of bilateral fifth metatarsal Greer fracture ORIF.? She has been having some left second toe pain, progressively worsening over the last year. On 08/09/2021 and in office percutaneous flexor tenotomy procedure was performed without complication. Patient has subsequently developed a ganglion cyst at the plantar aspect of the toe where incision was made.? This has resolved and recurred twice. ?She has failed all conservative care including modification of shoe gear, taping, strapping and has failed conservative treatment. The patient continues to have pain and worsening symptoms, affecting daily activities. We discussed surgery: MAC anesthesia for left 2nd PIPJ AD vs AP. I discussed the risks versus benefits of surgery to include: bleeding, infection, nerve or blood vessel damage, need for future surgery, need for removal of the implant, prolonged swelling of the digit, prolonged pain, RSD/CRPS, wound complications, DVT/PE, and anesthetic complications including . No guarantees were given. All questions fully answered. The patient verbalized understanding and agreed to proceed with surgery. Consent was obtained. Necessary labs and pre-op testing ordered.? Patient had an appointment last week with her PCP Jamia Pino for medical clearance. She will need prescription for pain and nausea.? Operative findings:: Left second rigid PIPJ contraction. There was a medial bony prominence at the head of the middle phalanx. Small 0.5 cm round soft tissue mass, differential diagnosis soft tissue mass or ganglion cyst noted at the medial second toe over the DIPJ. Poor bone quality necessitating the use of both the implant and the K wire for additional fixation. Operative note:: On this date and time patient was deemed an appropriate surgical candidate. With informed consent signed, the patient was taken to the operating theater. The patient was positioned supine. MAC anesthesia was induced. Tourniquet was applied to the left mid-calf. Pre-op right ankle block given with 20 cc 0.5% marcaine plain. The left lower extremity was prepped and drapped in normal sterile fashion. Left Digit PIPJ AD: Attention was directed to the left 2nd toe, where a dorsal linear incision was mapped out over the PIPJ extending distally over the DIPJ. Dissection was carried thru skin and sub q tissue, with care to maintain surgical hemostasis. Transverse tenotomy performed at the PIPJ, with release of the medial and lateral collateral ligaments. The head of the proximal and base of the middle phalanx was removed, exposing good cancellous bone. Wound was flushed with saline. In standard technique a [employer] phalanx implant size medium was inserted into the middle and proximal phalanx. A 1.1 smooth K wire was inserted from the middle phalanx at the tip of the toe retrograded back to the base of the proximal phalanx due to the poor bone quality. Reduction of the PIPJ contracture was appreciated. The was flushed with copious amounts of normal sterile saline. The tendon was repaired with 3-0 Vicryl and 4-0 Nylon was used to close skin in a simple suture fashion. Left toe soft tissue mass removal: A separate linear incision was made over the medial DIPJ. Dissection through skin there was a 0.5 cm soft tissue mass over the medial DIPJ. It was excised in total and sent for pathology. Left second partial resection of phalanx: Dissection down to the level of the bone. A rongeur and and rasp was then used to
[2022-11-03 14:08] VITALS: BP 163/75; PULSE 61; RESP 18; O2SAT 99
--- NOTE | 2022-11-03 14:09 | XR_ITS ---
FINAL REPORT CLINICAL HISTORY: post op FINDINGS: LEFT FOOT Three views were obtained. There is no acute fracture or dislocation. There are postoperative changes from ORIF of the 5th metatarsal. A surgical screw is stable. There has been interval placement of a surgical pin through the 2nd toe. There is mild multi joint degenerative disease which is stable. There is new soft tissue edema along the dorsal foot. IMPRESSION: Interval placement of a surgical pin through the 2nd toe. Reviewed, Interpreted and Dictated by Juliana Neumann MD Transcribed by Jadyn Denton Authenticated and [facility]
[2022-11-03 14:18] VITALS: BP 127/76; PULSE 58; RESP 18; O2SAT 100
[2022-11-03 14:28] VITALS: BP 154/82; PULSE 56; RESP 18; O2SAT 99
== END 2022-11-03 14:30 | disposition home or self-care (01) ==
PROVIDERS: PCP Nurse Practitioner Family; Visit Provider Podiatrist
DX: M20.42 Other hammer toe(s) (acquired), left foot (principal); Z79.899 Other long term (current) drug therapy; M19.072 Primary osteoarthritis, left ankle and foot; M89.8X7 Other specified disorders of bone, ankle and foot; M81.0 Age-related osteoporosis without current pathological fracture; M67.472 Ganglion, left ankle and foot
CPT/HCPCS: 28092; 28313; 73620; 73630; 96374; 97760; C1713; C1769; J2704

== ENCOUNTER → 2022-12-05 07:51 | Outpatient (CLI) | payer MEDICARE, SELFPAY ==
--- NOTE | 2022-12-05 08:11 | XR_ITS ---
FINAL REPORT CLINICAL HISTORY: post-op x 6 wks COMPARISON: November 03, 2022 FINDINGS: 3 views of the left foot were obtained. There is postoperative change involving the 2nd digit and 5th metatarsal that is stable. There is no acute fracture or dislocation. There are mild degenerative changes. There is a plantar calcaneal enthesophyte. The soft tissues are unremarkable. IMPRESSION: Stable postoperative changes. Reviewed, Interpreted and Dictated by Toby Suárez III, MD Transcribed by Jagjit Finnegan Authenticated and [facility]
== END ==
LOC: LAB 07:53
PROVIDERS: PCP Nurse Practitioner Family; Visit Provider Nurse Practitioner Women's Health
DX: Z98.890 Other specified postprocedural states (principal); M79.672 Pain in left foot
CPT/HCPCS: 73630

== ENCOUNTER → 2022-12-26 09:26 | Outpatient (CLI) | payer MEDICARE, SELFPAY ==
--- NOTE | 2022-12-26 09:33 | XR_ITS ---
FINAL REPORT CLINICAL HISTORY: post-op FINDINGS: LEFT FOOT Three weight-bearing views of the left foot demonstrate no acute fracture or dislocation. There are postoperative changes of the 2nd proximal and middle phalanges and proximal 5th metatarsal. There is mild degenerative change. There is a plantar calcaneal spur. The soft tissues are unremarkable. IMPRESSION: Postoperative and degenerative change with no acute bony abnormality. Reviewed, Interpreted and Dictated by Toby Suárez III, MD Transcribed by Kaley Greer Authenticated and [facility]
== END ==
LOC: RAD 09:27
PROVIDERS: PCP Nurse Practitioner Family; Visit Provider Podiatrist
DX: Z98.890 Other specified postprocedural states (principal); M79.672 Pain in left foot
CPT/HCPCS: 73630

== ENCOUNTER → 2023-01-31 10:24 | Outpatient (CLI) | payer MEDICARE, SELFPAY ==
[2023-01-31 11:00] LABS: Basophils % 0.4 % (0.1-2.0); Eosinophils % 0.1 % (0.1-12.0); Hematocrit 36.9 % (37.0-47.0); Hemoglobin 11.8 g/dL (12.2-16.2); Lymphocytes # 0.8 K/mm3 (0.7-4.5); Lymphocytes % 15.5 % (10-50); Mean Corpuscular HGB Conc 32.1 g/dL (31.8-35.4); Mean Corpuscular Hemoglobin 30.4 pg (27.0-31.2); Mean Corpuscular Volume 94.6 fl (81-99); Monocytes # 0.4 K/mm3 (0.1-1.0); Monocytes % 6.8 % (1.7-9.3); Neutrophils # 4.1 K/mm3 (1.8-7.8); Neutrophils % 77.2 % (37.0-80.0); Platelet Count 263 K/mm3 (142-424); Red Cell Distribution Width 14.3 % (11.5-17.5); White Blood Count 5.3 K/mm3 (4.8-10.8)
[2023-01-31 11:49] LABS: Erythrocyte Sedimentation Rate 54 mm/hr (0-30)
[2023-01-31 12:13] LABS: Alanine Aminotransferase 13 U/L (12-78); Albumin/Globulin Ratio 1.8 (1.1-1.8); Alkaline Phosphatase 89 U/L (38-126); Anion Gap 10.8 mEq/L (5-15); Aspartate Amino Transferase 25 U/L (14-36); Bilirubin,Total 0.5 mg/dl (0.2-1.3); Blood Urea Nitrogen 12 mg/dl (7-17); Calcium 9.1 mg/dl (8.4-10.2); Carbon Dioxide 28 mmol/L (22.0-30.0); Chloride 103 mmol/L (98-107); Estimated Glomerular Filt Rate 83 ml/min (>60); GFR (African American) 101 ML/MIN (>60); Globulin 2.2 g/dL (1.3-3.2); Glucose 83 mg/dl (74-100); Potassium 4.8 mmoL/L (3.5-5.1); Sodium 137 mmol/L (136-145); Total Protein,Serum 6.2 g/dl (6.3-8.2)
[2023-01-31 12:20] LABS: C-Reactive Protein 2.2 mg/L (0-4)
[2023-01-31 12:31] LABS: 25-OH Vitamin D, Total 59.9 ng/mL (30-100)
[2023-01-31 13:19] LABS: Vitamin B12 795 pg/mL (239-931)
[2023-01-31 13:55] LABS: Folate > 20.00 ng/mL
== END ==
PROVIDERS: PCP Nurse Practitioner Family; Visit Provider Nurse Practitioner Women's Health
DX: D51.1 Vitamin B12 deficiency anemia due to selective vitamin B12 malabsorption with proteinuria (principal); E55.9 Vitamin D deficiency, unspecified; M06.09 Rheumatoid arthritis without rheumatoid factor, multiple sites; M81.0 Age-related osteoporosis without current pathological fracture; Z79.899 Other long term (current) drug therapy
CPT/HCPCS: 36415; 80053; 82306; 82607; 82746; 85025; 85651; 86140

== ENCOUNTER 2023-02-15 10:00 | Outpatient (RCR) | payer MEDICARE, SELFPAY | END 2023-03-29 16:55 | disposition home or self-care (01) | LOC: PT 10:00 | PROVIDERS: PCP Nurse Practitioner Family; Visit Provider Orthopaedic Surgery | DX: M25.562 Pain in left knee (principal); M25.561 Pain in right knee | CPT/HCPCS: 97110; 97163; 97164; 97530 ==

== ENCOUNTER → 2023-03-10 13:10 | Outpatient (CLI) | payer MEDICARE, SELFPAY ==
--- NOTE | 2023-03-10 13:15 | XR_ITS ---
FINAL REPORT CLINICAL HISTORY: 5th toe pain/injury COMPARISON: 09/26/2019 FINDINGS: RIGHT FOOT: Three views of the right foot were obtained. There is an acute nondisplaced fracture of the proximal phalanx of the 5th toe. Postoperative changes are present with a screw in the proximal 5th metatarsal. There is a fracture line or osteotomy stool visible in the proximal 5th metatarsal. There is a questionable chronic proximal 4th metatarsal fracture. Ioza-st-bqfdyinz degenerative changes are present. Pes planus is present. The joint spaces are intact. There is no soft tissue abnormality. IMPRESSION: Acute nondisplaced fracture of the proximal phalanx 5th toe. Chronic and degenerative changes as described above. Reviewed, Interpreted and Dictated by Toby Suárez III, MD Transcribed by Sosa Cota Authenticated and [facility]
--- NOTE | 2023-03-10 13:15 | XR_ITS ---
FINAL REPORT CLINICAL HISTORY: post left foot surgery COMPARISON: 12/26/2022 FINDINGS: Left foot: Three views of the left the patient is foot were obtained. Postoperative changes with fusion of the 2nd toe proximal interphalangeal joint and the 5th metatarsal base are again noted. [id number] degenerative changes are present. There is a plantar calcaneal spur. Pes planus is noted. IMPRESSION: Postoperative changes with fusion of the 2nd proximal interphalangeal joint and base of the 5th metatarsal remain Mild to moderate degenerative changes. Reviewed, Interpreted and Dictated by Toby Suárez III, MD Transcribed by Sosa Cota Authenticated and . [facility]
== END ==
PROVIDERS: PCP Nurse Practitioner Family; Visit Provider Podiatrist
DX: M79.675 Pain in left toe(s) (principal); S92.355D Nondisplaced fracture of fifth metatarsal bone, left foot, subsequent encounter for fracture with routine healing; Z98.890 Other specified postprocedural states; M79.671 Pain in right foot; M79.672 Pain in left foot
CPT/HCPCS: 73630

== ENCOUNTER → 2023-05-01 09:10 | Outpatient (CLI) | payer MEDICARE, SELFPAY ==
[2023-05-01 09:39] LABS: Basophils % 0.3 % (0.1-2.0); Eosinophils % 0.2 % (0.1-12.0); Hematocrit 35.1 % (37.0-47.0); Hemoglobin 11.3 g/dL (12.2-16.2); Lymphocytes % 17.8 % (10-50); Mean Corpuscular HGB Conc 32.3 g/dL (31.8-35.4); Mean Corpuscular Hemoglobin 30.2 pg (27.0-31.2); Mean Corpuscular Volume 93.4 fl (81-99); Mean Platelet Volume 8.8 fl (7.4-10.4); Monocytes # 0.4 K/mm3 (0.1-1.0); Neutrophils # 4.2 K/mm3 (1.8-7.8); Neutrophils % 74.7 % (37.0-80.0); Platelet Count 245 K/mm3 (142-424); Red Blood Count 3.76 M/mm3 (4.20-5.40); Red Cell Distribution Width 13.8 % (11.5-17.5); White Blood Count 5.7 K/mm3 (4.8-10.8)
[2023-05-01 10:17] LABS: Erythrocyte Sedimentation Rate 65 mm/hr (0-30)
[2023-05-01 10:50] LABS: Alanine Aminotransferase 16 U/L (12-78); Albumin Level 3.7 g/dl (3.5-5.0); Albumin/Globulin Ratio 1.6 (1.1-1.8); Alkaline Phosphatase 124 U/L (38-126); Anion Gap 7.2 mEq/L (5-15); Aspartate Amino Transferase 24 U/L (14-36); Bilirubin,Total 0.4 mg/dl (0.2-1.3); Blood Urea Nitrogen 12 mg/dl (7-17); Carbon Dioxide 29 mmol/L (22.0-30.0); Chloride 106 mmol/L (98-107); Estimated Glomerular Filt Rate 100 ml/min (>60); GFR (African American) 121 ML/MIN (>60); Globulin 2.3 g/dL (1.3-3.2); Glucose 89 mg/dl (74-100); Potassium 4.2 mmoL/L (3.5-5.1); Sodium 138 mmol/L (136-145)
[2023-05-01 10:56] LABS: C-Reactive Protein 8.4 mg/L (0-4)
[2023-05-04 10:13] LABS: QuantiFERON-TB Gold Plus Negative (Negative)
== END ==
LOC: LAB 09:12
PROVIDERS: PCP Nurse Practitioner Family; Visit Provider Internal Medicine
DX: M06.09 Rheumatoid arthritis without rheumatoid factor, multiple sites (principal); M81.0 Age-related osteoporosis without current pathological fracture; R53.83 Other fatigue; Z79.899 Other long term (current) drug therapy
CPT/HCPCS: 36415; 80053; 85025; 85651; 86140; 86480

== ENCOUNTER 2023-05-29 17:19 | Observation (INO) | payer MEDICARE, SELFPAY ==
--- NOTE | 2023-05-29 17:33 | PC.NURSE ---
arrived to floor from ED admissions by w/c
--- NOTE | 2023-05-29 17:42 | ECG_ITS ---
APPROVED REPORT Exam: Resting ECG HR:56 bpm ECG Measurements Heart Rate 56 AXES AL 190 P 52 QRSd 117 QRS 12 QT 408 T 54 QTc 400 Conclusion SINUS BRADYCARDIA MODERATE INTRAVENTRICULAR CONDUCTION DELAY [110+ ms QRS DURATION] BORDERLINE ECG UNCONFIRMED REPORT Electronically signed by : Rafael Stephens MD 05/31/2023 17:36:02
--- NOTE | 2023-05-29 17:42 | XR_ITS ---
PROCEDURE INFORMATION: Exam: XR Chest Exam date and time: 05/29/2023 6:15 PM Age: 67 years old Clinical indication: Sternal or substernal pain; Prior surgery; Surgery date: 6+ months; Surgery type: Patient is unsure of surgery, had heart cath; Additional info: Chest pian TECHNIQUE: Imaging protocol: Radiologic exam of the chest. Views: 2 views. COMPARISON: CR XR CHEST 2V 11/01/2022 10:22 AM FINDINGS: Lungs: Unremarkable. No consolidation. Pleural spaces: Unremarkable. No pleural effusion. No pneumothorax. Heart/Mediastinum: Unremarkable. No cardiomegaly. Bones/joints: Moderate degenerative changes of the spine and shoulders. No acute fracture. Intraperitoneal space: Multiple surgical clips and sutures noted in the upper abdomen. IMPRESSION: No acute abnormality
[2023-05-29 17:48] VITALS: BMI 51.2
--- NOTE | 2023-05-29 17:50 | EXP.HP ---
History of Present Illness *Admission Date: 05/29/23 *Reason for visit:: Diaphoresis, chest pressure, near syncope. *History of present illness: 67-year-old female with history of hypertension (poorly controlled), class III obesity, hyperlipidemia, fibromyalgia. She presents as a direct admission from her PCPs office out of concern for an episode this weekend where she had chest pain and referred pain to her left shoulder and back with exertion. She proceeded to have an episode of diaphoresis and did not feel herself. She had some mild confusion, was dizzy and weak. Her took her home where she took a 4-hour nap and felt better after waking up. States she had a similar episode a few months ago. Pain is in her left shoulder and back. She has a history of fibromyalgia but most of her fibromyalgia pain is in her right upper back. History complicated by GERD for which she has a scheduled EGD later this month with Dr. Adair in [place]. Denies any candace syncope, stabbing chest pain, shortness of breath, nausea or vomiting. Extensive family history of cardiac disease. Reports having a history of a murmur. Discussed case with patient's PCP, requested admission for further work-up and cardiac eval. EKG obtained at PCPs office with nonspecific ST changes. Blood pressure elevated today systolics greater than 160. Admitted for further work-up and management. On arrival, she denies any active chest pain or shortness of breath. Is pleasant on exam. Gives a good history. Is in no acute distress and on room air. Blood pressure on evaluation with systolic above 170. Denies any focal neurologic symptoms with any of her previous episodes or today. Exam relatively benign. Echo performed in 02/2021 -Preserved ejection fraction, grade 1 diastolic dysfunction. Heart cath 2019 IMPRESSION: 1. Normal coronary arteries 2. Normal ejection fraction 3. Mildly elevated LVEDP [facility] Disclaimer: The information contained in this section may have been updated after the patient was seen, as this information can be updated by other users. Medical History BMI 50.0-59.9, adult Diastolic dysfunction Fibromyalgia HLD (hyperlipidemia) HTN (hypertension) Surgical History History of back surgery History of cholecystectomy History of foot surgery History of hysterectomy History of total right knee replacement (TKR) Family History Family history of TIAs Family history of hyperthyroidism Family history of myocardial infarction Social History Smoking Status: Never smoker alcohol intake: never counseling provided: none substance use type: denies use current occupational status: retired Travel in the last 8 weeks: None household members: significant other housing: house lives independently: Yes marital status: single current occupational exposures/hazards: No caffeine: Yes special madai needs: No agree to transfusion: No do you feel safe at home: Yes victim of physical abuse: No victim of emotional abuse: No victim of sexual abuse: No would you like helpful sources: No Review of Systems Review of Systems Review of systems (narrative): 14 point review of systems performed, pertinent positives and negatives as per HPI Meds Home Medications and Allergies Home Medications Medication Instructions Recorded Confirmed Type tofacitinib 11 mg tablet,extended 11 mg PO QDAY Arthritis 10/18/17 05/29/23 History release 24 hr (Xeljanz XR) puvscleq-qgynfyj-lvor-lutein tablet 1 tab PO DAILY Supplement 12/11/18 05/29/23 History etodolac 500 mg tablet 500 mg PO BID Pain 01/11/21 05/29/23 History potassium chloride 10 mEq 20 meq PO DAILY PRN supplement 01/11/21 05/29/23 History tablet,extended release ami
--- NOTE | 2023-05-29 18:26 | PC.NURSE ---
pt educated on the need to bring home medications since she has medicare, pt is going to have someone bring them
[2023-05-29 18:35] VITALS: PULSE 60
[2023-05-29 19:15] VITALS: BP 136/77; PULSE 60
[2023-05-29 19:16] VITALS: BP 155/72; BP 177/72; PULSE 67; PULSE 69
[2023-05-29 19:19] LABS: Coronavirus 19, PCR Not Detected (NotDetected); Influenza A, PCR Not Detected (NotDetected); Influenza B, PCR Not Detected (NotDetected)
[2023-05-29 19:23] LABS: Basophils % 0.2 % (0.1-2.0); Eosinophils % 0.3 % (0.1-12.0); Hematocrit 37.2 % (37.0-47.0); Hemoglobin 11.9 g/dL (12.2-16.2); Lymphocytes # 1.7 K/mm3 (0.7-4.5); Lymphocytes % 25.9 % (10-50); Mean Corpuscular HGB Conc 31.9 g/dL (31.8-35.4); Mean Corpuscular Hemoglobin 30.5 pg (27.0-31.2); Mean Corpuscular Volume 95.7 fl (81-99); Mean Platelet Volume 8.1 fl (7.4-10.4); Monocytes # 0.4 K/mm3 (0.1-1.0); Monocytes % 6.5 % (1.7-9.3); Neutrophils # 4.4 K/mm3 (1.8-7.8); Platelet Count 250 K/mm3 (142-424); Red Blood Count 3.89 M/mm3 (4.20-5.40); Red Cell Distribution Width 13.7 % (11.5-17.5); White Blood Count 6.6 K/mm3 (4.8-10.8)
[2023-05-29 19:34] LABS: Alanine Aminotransferase 13 U/L (12-78); Albumin Level 3.8 g/dl (3.5-5.0); Albumin/Globulin Ratio 1.7 (1.1-1.8); Alkaline Phosphatase 117 U/L (38-126); Anion Gap 11.2 mEq/L (5-15); Aspartate Amino Transferase 24 U/L (14-36); Bilirubin,Total 0.2 mg/dl (0.2-1.3); Blood Urea Nitrogen 13 mg/dl (7-17); Calcium 8.8 mg/dl (8.4-10.2); Carbon Dioxide 27 mmol/L (22.0-30.0); Chloride 101 mmol/L (98-107); Creatinine Clearance Estimated 43 mL/min (50-200); Estimated Glomerular Filt Rate 100 ml/min (>60); GFR (African American) 121 ML/MIN (>60); Globulin 2.3 g/dL (1.3-3.2); Glucose 100 mg/dl (74-100); Magnesium 1.7 mg/dl (1.6-2.3); Potassium 4.2 mmoL/L (3.5-5.1); Sodium 135 mmol/L (136-145); Total Protein,Serum 6.1 g/dl (6.3-8.2)
[2023-05-29 20:00] VITALS: BP 127/76; PULSE 70; PULSE 75; RESP 16; TEMP 36.9; O2SAT 99
[2023-05-29 20:23] LABS: Troponin I < 0.01 ng/ml (0.00-0.034)
[2023-05-29 21:58] LABS: Troponin I < 0.01 ng/ml (0.00-0.034)
[2023-05-30] VITALS: BP 139/68; PULSE 50; PULSE 58; RESP 16; TEMP 36.4; O2SAT 97
[2023-05-30 00:17] LABS: Troponin I < 0.01 ng/ml (0.00-0.034)
--- NOTE | 2023-05-30 02:30 | ECG_ITS ---
APPROVED REPORT Exam: Resting ECG HR:58 bpm ECG Measurements Heart Rate 58 AXES MA 156 P 30 QRSd 114 QRS 14 QT 417 T 53 QTc 414 Conclusion SINUS BRADYCARDIA MODERATE INTRAVENTRICULAR CONDUCTION DELAY [110+ ms QRS DURATION] BORDERLINE ECG UNCONFIRMED REPORT Electronically signed by : Rafael Stephens MD 05/31/2023 17:35:48
--- NOTE | 2023-05-30 02:38 | PC.NURSE ---
Pt called out stating i dont feel right . tele shows sinus bradycardia. Hospitalist notified, EKG obtained and shows sinus paolo. VS obtained- 128/81 HR- 59 O2 sat- 99%. Orders received for Nitro 0.4 mg q5min PRN. ZINC PLATER states we can give IV morphine if pain is not releived with 3 doses Nitro. Orders received for stat troponin as well. Lab notified. 1st dose Nitro given at 0235. Effectiveness noted.
[2023-05-30 03:00] LABS: Basophils % 0.3 % (0.1-2.0); Eosinophils % 0.2 % (0.1-12.0); Hematocrit 36.8 % (37.0-47.0); Hemoglobin 11.7 g/dL (12.2-16.2); Lymphocytes # 1.5 K/mm3 (0.7-4.5); Lymphocytes % 27.5 % (10-50); Mean Corpuscular HGB Conc 31.9 g/dL (31.8-35.4); Mean Corpuscular Hemoglobin 30.1 pg (27.0-31.2); Mean Corpuscular Volume 94.4 fl (81-99); Mean Platelet Volume 8.4 fl (7.4-10.4); Monocytes # 0.4 K/mm3 (0.1-1.0); Monocytes % 7.3 % (1.7-9.3); Neutrophils # 3.5 K/mm3 (1.8-7.8); Neutrophils % 64.8 % (37.0-80.0); Platelet Count 253 K/mm3 (142-424); Red Cell Distribution Width 13.7 % (11.5-17.5); White Blood Count 5.3 K/mm3 (4.8-10.8)
[2023-05-30 03:03] LABS: Alanine Aminotransferase 14 U/L (12-78); Albumin Level 3.5 g/dl (3.5-5.0); Albumin/Globulin Ratio 1.3 (1.1-1.8); Alkaline Phosphatase 108 U/L (38-126); Aspartate Amino Transferase 23 U/L (14-36); Bilirubin,Total 0.3 mg/dl (0.2-1.3); Blood Urea Nitrogen 11 mg/dl (7-17); Calcium 8.7 mg/dl (8.4-10.2); Carbon Dioxide 28 mmol/L (22.0-30.0); Chloride 107 mmol/L (98-107); Chol/HDL Ratio 2.3 (1-3.5); Cholesterol 207 mg/dl (140-200); Creatinine Clearance Estimated 43 mL/min (50-200); Estimated Glomerular Filt Rate 83 ml/min (>60); GFR (African American) 101 ML/MIN (>60); Globulin 2.6 g/dL (1.3-3.2); Glucose 100 mg/dl (74-100); HDL Cholesterol 91 mg/dl (40-60); Sodium 140 mmol/L (136-145); Total Protein,Serum 6.1 g/dl (6.3-8.2); Triglycerides 69 mg/dl (30-150); VLDL Cholesterol 14 mg/dL (0-40)
[2023-05-30 03:17] LABS: Troponin I < 0.01 ng/ml (0.00-0.034)
[2023-05-30 03:19] LABS: Direct LDL Cholesterol 85.83 mg/dL (100-129)
[2023-05-30 04:00] VITALS: BP 135/60; PULSE 58; PULSE 60; RESP 17; TEMP 36.6; O2SAT 96; BMI 51.4
--- NOTE | 2023-05-30 04:50 | PC.NURSE ---
Pt has had no complaints since previous episode. Overall, pt rested well this shift. Pt had normal BM this shift. Pt ambulates to BR with standby assistance, tolerates well. LS clear. Pt sinus paolo on tele.
[2023-05-30 07:21] VITALS: BP 133/70; PULSE 54; RESP 18; TEMP 36.8; O2SAT 99
--- NOTE | 2023-05-30 07:29 | CA_ITS ---
APPROVED REPORT EXAM: Comprehensive 2D, Doppler, and color-flow Echocardiogram Taxicab Starter: Palak Tse, RCS, RVS Ht: 5 ft 1 in Wt: 279lbs BSA: 2.18 BP: 157/75 mmHg Indications: CP, Nearsyncope, diaphoesis, Obesity, HTN, HLD 2D Dimensions IVSd 0.93 cm F: 0.6-1.0 LVEF (Visual) 58.30 % PWd 1.32 cm F: 0.6 - 1.0 LA Volume 59.60 mL LVDd 5.13 cm F: 3.9 - 5.3 LA Volume Index 27.34 mL/m2 (M/F) 16-34 LVDs 3.54 cm F: 2.2 - 3.5 M-Mode Dimensions RVDd 1.93 cm (0.9-2.6) LA Diam 3.71 cm (1.9-4.0) LVDd 5.40 cm (3.5-5.7) Ao Diam 3.41 cm (2.0-3.7) LVDs 4.22 cm (3.5-5.7) IVSd 0.92 cm (0.6-1.1) PWd 1.00 cm (0.6-1.1) EF (Teich) 57.60% EPSs 0.77 cm FS 30.90% EDV (Teich) 187.60 mL ESV (Teich) 79.50 mL LV Diastology E Decel Time 260.00 (160-240 msec) E/A Ratio 0.99 MED E' 8.80 (< 7 cm/sec) MED A' 7.00 cm/s E'/MED E' Ratio 10.55 (>14) LAT E' 8.80 (<10 cm/sec) LAT A' 9.10 cm/s E/LAT E' Ratio 10.55 (>14) Aortic Valve LVOT Max 125.00 (70-110 cm/s) LVOT VTI 28.28 cm AoV Peak Raymundo. 163.00 (50-130 cm/s) AI PHT 463.00 ms AO Peak GR. 10.60 mmHg AO Mean GR. 5.20 (<5 mmHg) AO VTI 38.02 (18-25 cm) Mitral Valve MV A Velocity 94.00 (40-130 cm/s) E/A Ratio 0.99 MV Decel. Time 260.00 (160-240 ms) Pulmonary Valve PV Peak Velocity 93.00 (50-150 cm/s) NM End VMAX 140.00 cm/s Tricuspid Valve TR P. Velocity 192.00 cm/s Left Ventricle The left ventricle is normal size. The left ventricular systolic function is normal. The left ventricular ejection fraction is within the normal range. There is normal left ventricular wall thickness. There is normal LV segmental wall motion. The left ventricular diastolic function is normal. LVEF is 55%. Right Ventricle The right ventricle is normal size. The right ventricular systolic function is normal. Atria The left atrium size is normal. The right atrium size is normal. There is no Doppler evidence of interatrial shunt. Aortic Valve The aortic valve is normal in structure. There is no aortic valvular stenosis. Mild aortic regurgitation is present. Mitral Valve The mitral valve is normal in structure. No evidence of mitral valve stenosis. Trace mitral regurgitation. Tricuspid Valve The tricuspid valve leaflets are thin and pliable. Trace tricuspid regurgitation. There is insufficient TR jet to estimate RVSP. Pulmonic Valve The pulmonary valve is normal in structure. Mild pulmonic regurgitation. Great Vessels The aortic root is normal in size. The ascending aorta is normal in size. The IVC is not well visualized. Pericardium There is no pericardial effusion. Other Information Study Quality: Adequate Conclusion Normal biventricular systolic function. No significant valvular disease. Electronically signed by : Mei Waldron, 05/30/2023 15:39:34
[2023-05-30 08:00] VITALS: PULSE 60
--- NOTE | 2023-05-30 09:40 | EXP.CARD.CON ---
History of Present Illness History of Present Illness Consult date: 05/30/23 Requesting physician: Jose Manuel Tan Consult reason: chest pain Chief complaint: chest pain History of present illness: This is a 67-year-old white female who was directly admitted to the hospital from her primary care provider's office secondary to concerns of angina. The patient has a known history of normal coronary arteries back in 2019. She states that on Monday she had been working in the yard a lot and also got in her swimming pool. She then had sudden onset of pain in her back between her shoulder blades that radiated down her left arm and into her chest. She states that this was a heavy sharp sensation. It was associated with an episode of diaphoresis and not feeling like herself. She states that she was awake but she felt like stuff was moving around her and she was not really aware of herself. She denies any episodes of syncope. She states that she did get a little bit dizzy and weak and had some mild confusion. She states that she went home and slept for about 4 hours and then she woke up and her symptoms had resolved. She states that she had an episode similar to this approximately a month ago as well but it did not last as long as the episode on Monday. She has had no recurrence of the symptoms/episode since Monday. She went to see her primary care provider yesterday and she was directly admitted to the hospital for concerns of angina. She has ruled out for an AK. She currently has no chest pain. She has no significant EKG changes. Her blood pressure was 170s systolic upon arrival to the hospital. She denies any shortness of breath or edema. She denies any fever, chills, nausea, vomiting, diarrhea, PND or orthopnea. [facility] Disclaimer: The information contained in this section may have been updated after the patient was seen, as this information can be updated by other users. Medical History (Updated 05/30/23 @ 14:34 by Irish Crook APRN) Adrenal nodule BMI 50.0-59.9, adult Diastolic dysfunction Elevated d-dimer Fibromyalgia GERD (gastroesophageal reflux disease) HLD (hyperlipidemia) HTN (hypertension) Surgical History History of back surgery History of cholecystectomy History of foot surgery History of hysterectomy History of total right knee replacement (TKR) Family History Family history of TIAs Family history of hyperthyroidism Family history of myocardial infarction Social History Smoking Status: Never smoker alcohol intake: never counseling provided: none substance use type: denies use current occupational status: retired Travel in the last 8 weeks: None household members: significant other housing: house lives independently: Yes marital status: single current occupational exposures/hazards: No caffeine: Yes special madai needs: No agree to transfusion: No do you feel safe at home: Yes victim of physical abuse: No victim of emotional abuse: No victim of sexual abuse: No would you like helpful sources: No Review of Systems Review of Systems Review of systems:: pertinent systems reviewed and negative unless documented below Constitutional Constitutional: Reports system reviewed and no additional complaints, except as documented, Reports excessive sweating, Reports fatigue and Reports weakness Eyes Eyes: Reports system reviewed and no additional complaints, except as documented ENT Ears, Nose, Mouth, and Throat: Reports system reviewed and no additional complaints, except as documented and Reports dizziness *Cardiovascular Cardiovascular: Reports system reviewed and no additional complaints, except as documented, Reports chest pain, Reports chest pain at rest, Reports diaphoresis, Denies dyspnea, Reports lightheadedness and Reports
--- NOTE | 2023-05-30 09:44 | HMH.PHAINT1 ---
Pharmacy Intervention Comments: Medication history complete, medications verifed with patient and fill history. Of note, patient reports taking Xeljanz at home but I was unable to find a fill history through either of her pharmacies, patient's son will bring in bottle later today for verification, - Saskia Mederos, PharmD Candidate 2023
[2023-05-30 10:59] LABS: D-Dimer 0.95 ug/mL (0.0-0.5)
[2023-05-30 11:18] VITALS: BP 147/60; PULSE 59; RESP 18; TEMP 37.1; O2SAT 99
--- NOTE | 2023-05-30 11:45 | CT_ITS ---
FINAL REPORT TECHNIQUE: Then section axial CT images of the chest were obtained with contrast. Three-D reformatted images were also obtained.This study was performed with techniques to keep radiation doses as low as reasonably achievable (ALARA). Individualized dose reduction techniques using automated exposure control or adjustment of mA and/or kV according to the patient''s size were employed. CLINICAL HISTORY: positive d dimer COMPARISON: None FINDINGS: There is no evidence of pulmonary embolism. There is no evidence of thoracic aortic aneurysm or dissection. There is no evidence of mediastinal or hilar mass or adenopathy. There is no evidence of pulmonary mass or suspicious nodule. No localized inflammatory process is seen within the lungs. Limited images of the upper abdomen are unremarkable. Gastric bypass is noted. Postcholecystectomy. Right adrenal nodule measuring 29 mm likely represents adenoma. IMPRESSION: No evidence of pulmonary embolism. 29 mm right adrenal nodule, likely adenoma. Reviewed, Interpreted and Dictated by Toby Suárez III, MD Transcribed by Selene Pabon Authenticated and [facility]
[2023-05-30 12:00] VITALS: PULSE 80
--- NOTE | 2023-05-30 13:17 | EXP.DC.SUM ---
General Admission date:: 05/29/23 Discharge date: 05/30/23 HPI HPI HPI: 67-year-old female with history of hypertension (poorly controlled), class III obesity, hyperlipidemia, fibromyalgia. She presents as a direct admission from her PCPs office out of concern for an episode this weekend where she had chest pain and referred pain to her left shoulder and back with exertion. She proceeded to have an episode of diaphoresis and did not feel herself. She had some mild confusion, was dizzy and weak. Her took her home where she took a 4-hour nap and felt better after waking up. States she had a similar episode a few months ago. Pain is in her left shoulder and back. She has a history of fibromyalgia but most of her fibromyalgia pain is in her right upper back. History complicated by GERD for which she has a scheduled EGD later this month with Dr. [place]. Denies any candace syncope, stabbing chest pain, shortness of breath, nausea or vomiting. Extensive family history of cardiac disease. Reports having a history of a murmur. Discussed case with patient's PCP, requested admission for further work-up and cardiac eval. EKG obtained at PCPs office with nonspecific ST changes. Blood pressure elevated today systolics greater than 160. Admitted for further work-up and management. On arrival, she denies any active chest pain or shortness of breath. Is pleasant on exam. Gives a good history. Is in no acute distress and on room air. Blood pressure on evaluation with systolic above 170. Denies any focal neurologic symptoms with any of her previous episodes or today. Exam relatively benign. Echo performed in 02/2021 -Preserved ejection fraction, grade 1 diastolic dysfunction. Heart cath 2019 IMPRESSION: 1. Normal coronary arteries 2. Normal ejection fraction 3. Mildly elevated LVEDP Hospital Course Hospital Course Hospital Course: The patient was monitored on telemetry. Troponin levels were trended and were within normal limits. D-dimer was elevated at 0.95. CTA chest ruled out pulmonary embolism. On ct an incidental 2.9cm right adrenal nodule was found, likely an adenoma. Repeat CT scan in 1 year was recommended for monitoring of this incidentaloma. She was started on lisinopril for better blood pressure control. The rest of her home medications were resumed. She will need to follow up with her primary care provider in 1 week. She was scheduled for an outpatient stress test for later this week and will follow up with Cardiology in clinic next week. Exam Data for Last 24 hours Vital signs and Labs for Last 24 Hours: Temp Pulse Resp BP Pulse Ox O2 Del Method 98.8 F 59 L 18 147/60 H 99 Room Air 05/30/23 11:18 05/30/23 11:18 05/30/23 11:18 05/30/23 11:18 05/30/23 11:18 05/30/23 11:18 Laboratory Results - last 24 hr 05/29/23 18:00: WBC 6.6, RBC 3.89 L, Hgb 11.9 L, Hct 37.2, MCV 95.7, MCH 30.5, MCHC 31.9, RDW 13.7, Plt Count 250, MPV 8.1, Neut % (Auto) 67.0, Lymph % (Auto) 25.9, Finney % (Auto) 6.5, Eos % (Auto) 0.3, Baso % (Auto) 0.2, Neut # (Auto) 4.4, Lymph # (Auto) 1.7, Finney # (Auto) 0.4, Eos # (Auto) 0.0, Baso # (Auto) 0.0, Sodium 135 L, Potassium 4.2, Chloride 101, Carbon Dioxide 27, Anion Gap 11.2, BUN 13, Creatinine 0.60, Estimated Creat Clear 43, Estimated GFR 100, Est GFR ( Amer) 121, Glucose 100, Calcium 8.8, Magnesium 1.7, Total Bilirubin 0.2, AST 24, ALT 13, Alkaline Phosphatase 117, Troponin I < 0.01, Total Protein 6.1 L, Albumin 3.8, Globulin 2.3, Albumin/Globulin Ratio 1.7, SARS-CoV-2 (PCR) Not detected, Influenza A Untype (PCR) Not detected, Influenza Type B (PCR) Not detected 05/29/23 21:00: Troponin I < 0.01 05/29/23 23:40: Troponin I < 0.01 05/30/23 02:50: WBC 5.3, RBC 3.90 L, Hgb 11.7 L, Hct 36.8 L, MCV 94.4, MCH 30.1, MCHC 31.9, RDW 13.7, Plt Count 253, MPV 8.4, Neut % (Auto) 64.8, Lymph % (Auto) 27.5, Finney % (Auto) 7.3, Eos % (Auto) 0.2, Baso % (Auto) 0.3, Neut # (Auto) 3.5, Lymph # (Au
--- NOTE | 2023-06-01 10:57 | SW/DCPLANNER ---
Follow up phone call with this patient on 06/01/23. Patient stated that she is doing well at home and does not have any needs at this time. Patient stated that she completed outpatient stress test this AM.
== END 2023-05-30 17:05 | disposition home or self-care (01) ==
PROVIDERS: Nurse Practitioner Family; Admitting Provider Internal Medicine Adolescent Medicine; PCP Nurse Practitioner Family; Visit Provider Internal Medicine Adolescent Medicine
DX: I20.0 Unstable angina (principal); M79.7 Fibromyalgia; Z68.43 Body mass index [BMI] 50.0-59.9, adult; E78.2 Mixed hyperlipidemia; I10 Essential (primary) hypertension; K21.9 Gastro-esophageal reflux disease without esophagitis; R07.89 Other chest pain; R79.89 Other specified abnormal findings of blood chemistry; E66.01 Morbid (severe) obesity due to excess calories; Z79.899 Other long term (current) drug therapy
CPT/HCPCS: G0379; 36415; 71046; 71275; 80053; 80061; 83735; 84484; 85025; 85378; 87636; 93005; 93306; G0378; J3475; Q9967

== ENCOUNTER → 2023-06-01 06:11 | Outpatient (CLI) | payer MEDICARE, SELFPAY ==
--- NOTE | 2023-06-01 06:14 | NM_ITS ---
APPROVED REPORT Exam: Nuclear Stress Test Indication: chest pain..soa..fatigue Patient Location: Outpatient Stress Tech: Liz BROWN Tech:CLAUDETTE Lim RT(R)(N) Ht: 5 ft 2 in Wt: 270 lbs HR: 57 bpm BP: 135/75 mmHg BSA: 2.17 m2 Rhythm: NSR TID: 1.01 BMI: 49.3 History: chest pain..soa..fatigue Procedure: Patient received 0.4 mg of intravenous Lexiscan, resting heart rate 57 bpm, resting blood pressure 135/75 mmHg, with Lexiscan maximum heart rate achieved was 79 bpm which is 85 % of the maximum predicted heart rate and blood pressure was 135/75 mmHg. With Lexiscan, patient denied any complaint of chest pain. Cardiac Stress and Resting SPECT Images: Cardiac Stress and Resting SPECT images were obtained using technetium 99m Myoview 30.8 mCi stress and 10.70 mCi at rest. Resting and stress imaging in both supine and prone positions demonstrate a large-sized, moderate, partially reversible perfusion defect in the anterior LV wall from the base and extending distally towards the anteroapical region. There is also a large-sized, moderate, reversible perfusion defect in the basal to mid inferior LV wall. Gated imaging demonstrates low-normal global LV systolic function. There is mild hypokinesis in the anterior LV wall and the basal inferior LV wall. LVEF is calculated at 52%. Conclusion: Large-sized, moderate, partially reversible perfusion defect in the anterior LV wall from the base and extending distally towards the distal anterior LV wall. There is also a large-sized, moderate, reversible perfusion defect in the basal to mid inferior LV wall. Findings are suggestive of partial reversible ischemia. Gated imaging demonstrates low-normal global LV systolic function. There is mild hypokinesis in the anterior LV wall and the basal inferior LV wall. LVEF is calculated at 52%. Electronically signed by : Mei Waldron, 06/03/2023 15:55:01
--- NOTE | 2023-06-01 10:37 | CA_ITS ---
APPROVED REPORT Exam: Pharmacologic Technologist: Liz Neil, Ht: 5 ft 3 in Wt: 280 lbs BSA: 2.23 m2 HR: 56 bpm BP: 135/75 mmHg Rhythm: SINUS BRADYCARDIA, LOW VOLTAGE QRS,FIRST DEGREE AV BLOCK Medical History Medical History: HTN, Hyperlipidemia Medications: Lisinopril,,,,, Potassium Chloride,,,,, Atenolol,,,,, Gabapentin,,,,, Nabumetone,,,,, Vit D3,,,,, Prednisone,,,,, Venlafaxine,,,,, ETODOLAC,,,,, LiNACLOTIDE,,,,, Tofacitinib,,,,, AmiTRIPTLine,,,,, Cardiac Risk Factors: HTN, Hyperlipidemia, FHX of CAD Stress Test Details Test: LEXISCAN HR Resting HR: 57 bpm Max Heart Rate (APMHR): 153 bpm Max HR Achieved: 79 bpm Target HR (85% APMHR): 130 bpm % of APMHR: 52 Recovery HR: 67 bpm BP Resting BP: 135.0/75.0 mmHg Max BP: 135.0/75.0 mmHg Recovery BP: 116.0/61.0 mmHg ECG Resting ECG: SINUS BRADYCARDIA, LOW VOLTAGE QRS, FIRST DEGREE AV BLOCK Stress ECG: NO CHANGE Arrhythmia: NONE Clinical Exercise duration: 04:00 min Highest Stage Achieved: Exercise capacity: 1.0 METs Stress ECG Conclusion DURING INFUSION PATIENT HAD MILD CHEST PRESSURE AND HEAD DISCOMFORT. NO ARRHYTHMIAS/ECTOPY. NO SIGNIFICANT ST-T CHANGES FOLLOWING LEXISCAN ADMINISTRATION. UNREMARKABLE LEXISCAN STRESS. MYOVIEW IMAGES REPORTED SEPARATELY. Test Summary REST 03:51 . . 57 . 135/ 75 . . Stage 1 . . . . . . . Myoview Injected Stage 1 01:00 . . 64 . . . . Stage 2 01:00 . . 66 . . . . Stage 3 01:00 . . 65 . 120/ 66 . . Stage 4 01:00 . . 75 . 108/ 66 . Stop exercise at 04:00 RECOVERY 01:00 . . 67 . . . . RECOVERY 02:00 . . 64 . . . . RECOVERY 03:00 . . 61 . 116/ 61 . . RECOVERY 03:31 . . 61 . 133/ 64 . . Electronically signed by : Mei Waldron, 06/03/2023 15:49:18
== END ==
LOC: RAD 06:11
PROVIDERS: PCP Nurse Practitioner Family; Visit Provider Nurse Practitioner Family
DX: I20.8 Other forms of angina pectoris (principal)
CPT/HCPCS: 78452; 93017; A9502; J2785

== ENCOUNTER 2023-06-07 08:03 | Day surgery (SDC) | payer MEDICARE, SELFPAY ==
[2023-06-07] VITALS (11 sets, daily range): BP systolic 143–170; BP diastolic 54–82; PULSE 52–77; RESP 16–18; O2SAT 97–100; BMI 50.6
--- NOTE | 2023-06-07 07:06 | IR_ITS ---
APPROVED REPORT Patient Location: Outpatient [facility] Staff Officer: CLAUDETTE Fregoso RT (R) PROCEDURES Selective coronary angiogram INDICATION Abnormal Myoview, Angina pectoris Informed consent was obtained prior to the procedure. COMPLICATIONS None Estimated Blood Loss: Less than 10 mls TECHNIQUE One percent lidocaine used to anesthetize the right anterior aspect of the wrist. The right radial artery was accessed via the Seldinger technique. A 6 Sinhala sheath was placed in the right radial artery. 2.5 mg of Verapamil, 800 mcg of nitroglycerin, 1mg Lidocaine and 5000 U Heparin were given through the arterial sheath. The papa catheter was also used to perform selective coronary angiogram. At the end of the procedure the sheath was removed good hemostasis was achieved using Traclet band, patient was transferred to the postop holding area in stable condition. ANGIOGRAPHIC RESULTS The left main artery Normal The left anterior descending artery Normal The circumflex artery Normal The right coronary artery Dominant normal The OCONNELL ventriculogram reveals Not performed The left ventricular end-diastolic pressure Not measured IMPRESSION Normal coronary arteries PLAN 1. Risk factor modification 2. Recommend empiric treatment for diastolic dysfunction which is most likely present based on body habitus and associated symptoms Electronically signed by : Dion Zaidi MD 06/07/2023 10:59:33
[2023-06-07 08:50] LABS: Basophils % 0.3 % (0.1-2.0); Eosinophils % 0.2 % (0.1-12.0); Hematocrit 37.2 % (37.0-47.0); Hemoglobin 12.2 g/dL (12.2-16.2); Lymphocytes # 1.2 K/mm3 (0.7-4.5); Lymphocytes % 18.5 % (10-50); Mean Corpuscular HGB Conc 32.9 g/dL (31.8-35.4); Mean Corpuscular Hemoglobin 31.1 pg (27.0-31.2); Mean Corpuscular Volume 94.6 fl (81-99); Mean Platelet Volume 8.3 fl (7.4-10.4); Monocytes # 0.4 K/mm3 (0.1-1.0); Monocytes % 5.7 % (1.7-9.3); Neutrophils % 75.3 % (37.0-80.0); Platelet Count 240 K/mm3 (142-424); Red Blood Count 3.93 M/mm3 (4.20-5.40); Red Cell Distribution Width 13.9 % (11.5-17.5); White Blood Count 6.6 K/mm3 (4.8-10.8)
[2023-06-07 09:00] LABS: Chloride 105 mmol/L (98-107); Potassium 3.8 mmoL/L (3.5-5.1); Sodium 142 mmol/L (136-145)
[2023-06-07 09:03] LABS: Anion Gap 10.8 mEq/L (5-15); Blood Urea Nitrogen 13 mg/dl (7-17); Calcium 9.4 mg/dl (8.4-10.2); Carbon Dioxide 30 mmol/L (22.0-30.0); Creatinine Clearance Estimated 43 mL/min (50-200); Estimated Glomerular Filt Rate 83 ml/min (>60); GFR (African American) 101 ML/MIN (>60); Glucose 92 mg/dl (74-100)
== END 2023-06-07 12:52 | disposition home or self-care (01) ==
PROVIDERS: PCP Nurse Practitioner Family; Visit Provider Internal Medicine
DX: E78.5 Hyperlipidemia, unspecified (principal); I10 Essential (primary) hypertension; I20.8 Other forms of angina pectoris; R06.00 Dyspnea, unspecified; R94.39 Abnormal result of other cardiovascular function study; K21.9 Gastro-esophageal reflux disease without esophagitis; Z79.899 Other long term (current) drug therapy
CPT/HCPCS: 80048; 85025; 93454; 99152; C1725; C1760; C1769; J1644; Q9967

== ENCOUNTER → 2023-06-22 11:13 | Outpatient (CLI) | payer MEDICARE, SELFPAY | LOC: RT 11:15 | PROVIDERS: PCP Nurse Practitioner Family; Visit Provider Physician Assistant | DX: R55 Syncope and collapse (principal); R41.82 Altered mental status, unspecified; I10 Essential (primary) hypertension; M79.7 Fibromyalgia | CPT/HCPCS: 93225 ==

== ENCOUNTER → 2023-07-11 10:36 | Outpatient (CLI) | payer MEDICARE, SELFPAY ==
[2023-07-11 11:31] LABS: Glucose,Fasting 96 mg/dl (74-100)
[2023-07-11 13:33] LABS: Glucose 1 Hour 84 mg/dL (74-100)
[2023-07-11 13:52] LABS: Glucose 2 Hour 66 mg/dL (74-100)
[2023-07-11 15:40] LABS: Hemoglobin A1C 5.7 % (4.0-6.0)
[2023-07-12 20:32] LABS: Insulin Level Total 3.6 uIU/mL (2.6-24.9)
[2023-07-24 00:06] LABS: Insulin Autoantibodies (IAA) <5.0 uU/mL (.)
== END ==
PROVIDERS: PCP Nurse Practitioner Family; Visit Provider Nurse Practitioner Family
DX: E16.2 Hypoglycemia, unspecified (principal)
CPT/HCPCS: 36415; 82951; 83036; 83525

== ENCOUNTER → 2023-08-30 07:07 | Outpatient (CLI) | payer MEDICARE, SELFPAY ==
--- NOTE | 2023-08-30 07:09 | MR_ITS ---
FINAL REPORT CLINICAL HISTORY: SYNCOPE AND COLLAPSE. EPISODES WITH CONFUSION, SWEATING AND FATIGUE COMPARISON: None FINDINGS: Multi planar MR imaging was obtained through the brain without contrast. Image quality is degraded by motion artifact. The midline structures appear intact. There is no evidence of Chiari malformation. There are small areas of increased signal on T2 weighted images in the periventricular white matter, nonspecific but likely secondary to ischemic microvascular change, chronic. On diffusion-weighted images there is no evidence of restricted diffusion. The visualized paranasal sinuses demonstrate normal signal voids. The seventh and eighth nerve root complexes are intact. IMPRESSION: Mild changes of ischemic/chronic microvascular disease. No acute intracranial abnormality identified. Reviewed, Interpreted and Dictated by Isaías Barrera MD Transcribed by Sosa Cota Authenticated and [facility]
== END ==
LOC: RAD 07:07
PROVIDERS: PCP Nurse Practitioner Family; Visit Provider Nurse Practitioner Family
DX: R55 Syncope and collapse (principal)
CPT/HCPCS: 70551

== ENCOUNTER → 2023-09-13 12:26 | Outpatient (CLI) | payer MEDICARE, SELFPAY | LOC: RT 12:26 | PROVIDERS: PCP Nurse Practitioner Family; Visit Provider Nurse Practitioner Family | DX: R41.0 Disorientation, unspecified (principal); I10 Essential (primary) hypertension | CPT/HCPCS: 94762; 95816 ==

== ENCOUNTER → 2023-09-26 10:50 | Outpatient (CLI) | payer MEDICARE, SELFPAY ==
--- NOTE | 2023-09-26 10:51 | CA_ITS ---
FINAL REPORT TECHNIQUE: Real-time imaging was performed of the extracranial carotid arteries in transverse and longitudinal planes, with color duplex evaluation of blood flow velocity. Spectral analysis was performed. The cervical vertebral arteries were also examined. CLINICAL HISTORY: transaient confusion, htn, hld FINDINGS: NASCET technique is utilized for stenosis evaluation. Right carotid system (centimeters/second): CCA: 114 ICA: 110 ECA: 49.2 Vertebral artery: Antegrade ICA/CCA ratio: 1.9 Mild plaque is identified at the bifurcation. Left carotid system (centimeters/second): CCA: 62 ICA: 101 ECA: 89 Vertebral artery: Antegrade ICA/CCA ratio: 1.64 Mild plaque is identified at the bifurcation. IMPRESSION: Less than 50% right ICA stenosis. Less than 50% left ICA stenosis. Antegrade flow bilateral vertebral arteries. Reviewed, Interpreted and Dictated by Isaías Barrera MD Transcribed by Sosa Cota Authenticated and [facility]
== END ==
LOC: RT 10:51
PROVIDERS: PCP Nurse Practitioner Family; Visit Provider Nurse Practitioner Family
DX: E16.2 Hypoglycemia, unspecified (principal); E66.9 Obesity, unspecified; I10 Essential (primary) hypertension; R41.0 Disorientation, unspecified; R55 Syncope and collapse; Z68.43 Body mass index [BMI] 50.0-59.9, adult
CPT/HCPCS: 93880

== ENCOUNTER → 2023-09-28 07:54 | Outpatient (CLI) | payer MEDICARE, SELFPAY ==
[2023-09-28 08:22] LABS: Basophils % 0.5 % (0.1-2.0); Eosinophils % 0.1 % (0.1-12.0); Hemoglobin 12.4 g/dL (12.2-16.2); Lymphocytes # 1.3 K/mm3 (0.7-4.5); Lymphocytes % 25.2 % (10-50); Mean Corpuscular HGB Conc 35.4 g/dL (31.8-35.4); Mean Platelet Volume 8.1 fl (7.4-10.4); Monocytes # 0.4 K/mm3 (0.1-1.0); Neutrophils # 3.3 K/mm3 (1.8-7.8); Neutrophils % 67.2 % (37.0-80.0); Platelet Count 229 K/mm3 (142-424); Red Blood Count 3.65 M/mm3 (4.20-5.40); Red Cell Distribution Width 14.1 % (11.5-17.5)
[2023-09-28 08:39] LABS: Chloride 102 mmol/L (98-107); Potassium 4.2 mmoL/L (3.5-5.1); Sodium 138 mmol/L (136-145)
[2023-09-28 08:42] LABS: Alanine Aminotransferase 25 U/L (12-78); Albumin Level 4.2 g/dl (3.5-5.0); Albumin/Globulin Ratio 1.9 (1.1-1.8); Alkaline Phosphatase 100 U/L (38-126); Anion Gap 7.2 mEq/L (5-15); Aspartate Amino Transferase 40 U/L (14-36); Bilirubin,Total 0.6 mg/dl (0.2-1.3); Blood Urea Nitrogen 13 mg/dl (7-17); Calcium 9.1 mg/dl (8.4-10.2); Carbon Dioxide 33 mmol/L (22.0-30.0); Estimated Glomerular Filt Rate 83 ml/min (>60); GFR (African American) 101 ML/MIN (>60); Globulin 2.2 g/dL (1.3-3.2); Glucose 98 mg/dl (74-100); Total Protein,Serum 6.4 g/dl (6.3-8.2)
[2023-09-28 08:48] LABS: C-Reactive Protein 2.9 mg/L (0-4)
[2023-09-28 08:59] LABS: Erythrocyte Sedimentation Rate 28 mm/hr (0-30)
== END ==
PROVIDERS: PCP Nurse Practitioner Family; Visit Provider Nurse Practitioner Women's Health
DX: M06.09 Rheumatoid arthritis without rheumatoid factor, multiple sites (principal); E66.01 Morbid (severe) obesity due to excess calories; Z68.43 Body mass index [BMI] 50.0-59.9, adult; Z79.899 Other long term (current) drug therapy
CPT/HCPCS: 36415; 80053; 82306; 85025; 85651; 86140

== ENCOUNTER 2023-12-04 07:34 | Outpatient (CLI) | payer MEDICARE, SELFPAY ==
[2023-12-04 08:21] LABS: Basophils % 0.2 % (0.1-2.0); Eosinophils % 0.1 % (0.1-12.0); Hematocrit 33.2 % (37.0-47.0); Hemoglobin 11.3 g/dL (12.2-16.2); Lymphocytes # 1.5 K/mm3 (0.7-4.5); Lymphocytes % 23.3 % (10-50); Mean Corpuscular Hemoglobin 32.5 pg (27.0-31.2); Mean Corpuscular Volume 95.8 fl (81-99); Mean Platelet Volume 8.1 fl (7.4-10.4); Monocytes # 0.5 K/mm3 (0.1-1.0); Monocytes % 7.3 % (1.7-9.3); Neutrophils # 4.6 K/mm3 (1.8-7.8); Neutrophils % 69.1 % (37.0-80.0); Platelet Count 255 K/mm3 (142-424); Red Blood Count 3.46 M/mm3 (4.20-5.40); Red Cell Distribution Width 14.1 % (11.5-17.5); White Blood Count 6.6 K/mm3 (4.8-10.8)
[2023-12-04 09:01] LABS: Hemoglobin A1C 5.5 % (4.0-6.0)
[2023-12-04 09:03] LABS: Alanine Aminotransferase 24 U/L (12-78); Albumin Level 3.6 g/dl (3.5-5.0); Albumin/Globulin Ratio 1.7 (1.1-1.8); Alkaline Phosphatase 86 U/L (38-126); Aspartate Amino Transferase 34 U/L (14-36); Bilirubin,Total 0.5 mg/dl (0.2-1.3); Blood Urea Nitrogen 14 mg/dl (7-17); Carbon Dioxide 30 mmol/L (22.0-30.0); Chloride 105 mmol/L (98-107); Chol/HDL Ratio 2.3 (1-3.5); Cholesterol 166 mg/dl (140-200); Estimated Glomerular Filt Rate 83 ml/min (>60); GFR (African American) 101 ML/MIN (>60); Globulin 2.1 g/dL (1.3-3.2); Glucose 83 mg/dl (74-100); HDL Cholesterol 72 mg/dl (40-60); Sodium 138 mmol/L (136-145); Total Protein,Serum 5.7 g/dl (6.3-8.2); Triglycerides 41 mg/dl (30-150); VLDL Cholesterol 8 mg/dL (0-40)
[2023-12-04 09:05] LABS: Erythrocyte Sedimentation Rate 34 mm/hr (0-30)
[2023-12-04 09:08] LABS: C-Reactive Protein 2.1 mg/L (0-4)
[2023-12-04 09:14] LABS: Direct LDL Cholesterol 63.01 mg/dL (100-129)
[2023-12-05 10:17] LABS: Insulin Level Total 5.8 uIU/mL (2.6-24.9)
[2023-12-11 04:07] LABS: Insulin Autoantibodies (IAA) <5.0 uU/mL (.)
== END 2023-12-04 23:59 ==
LOC: LAB 07:36
PROVIDERS: PCP Nurse Practitioner Family; Visit Provider Nurse Practitioner Family
DX: M06.09 Rheumatoid arthritis without rheumatoid factor, multiple sites (principal); Z79.899 Other long term (current) drug therapy; I10 Essential (primary) hypertension; R73.03 Prediabetes
CPT/HCPCS: 36415; 80053; 80061; 83036; 83525; 85025; 85651; 86140

== ENCOUNTER 2024-03-21 08:46 | Outpatient (CLI) | payer MEDICARE, SELFPAY ==
[2024-03-21 09:23] LABS: Basophils % 0.5 % (0.1-2.0); Eosinophils % 0.1 % (0.1-12.0); Hematocrit 37.8 % (37.0-47.0); Lymphocytes # 0.8 K/mm3 (0.7-4.5); Lymphocytes % 16.6 % (10-50); Mean Corpuscular HGB Conc 31.9 g/dL (31.8-35.4); Mean Corpuscular Hemoglobin 31.7 pg (27.0-31.2); Mean Corpuscular Volume 99.6 fl (81-99); Mean Platelet Volume 8.4 fl (7.4-10.4); Monocytes # 0.3 K/mm3 (0.1-1.0); Monocytes % 6.9 % (1.7-9.3); Neutrophils # 3.5 K/mm3 (1.8-7.8); Neutrophils % 75.8 % (37.0-80.0); Platelet Count 269 K/mm3 (142-424); Red Blood Count 3.79 M/mm3 (4.20-5.40); White Blood Count 4.6 K/mm3 (4.8-10.8)
[2024-03-21 09:46] LABS: Erythrocyte Sedimentation Rate 81 mm/hr (0-30)
[2024-03-21 10:21] LABS: Chloride 101 mmol/L (98-107); Potassium 4.2 mmoL/L (3.5-5.1); Sodium 136 mmol/L (136-145)
[2024-03-21 10:24] LABS: Alanine Aminotransferase 55 U/L (12-78); Albumin Level 3.9 g/dl (3.5-5.0); Albumin/Globulin Ratio 1.6 (1.1-1.8); Alkaline Phosphatase 162 U/L (38-126); Anion Gap 11.2 mEq/L (5-15); Aspartate Amino Transferase 104 U/L (14-36); Bilirubin,Total 0.5 mg/dl (0.2-1.3); Blood Urea Nitrogen 7 mg/dl (7-17); Calcium 9.6 mg/dl (8.4-10.2); Carbon Dioxide 28 mmol/L (22.0-30.0); Estimated Glomerular Filt Rate 83 ml/min (>60); GFR (African American) 101 ML/MIN (>60); Globulin 2.4 g/dL (1.3-3.2); Glucose 127 mg/dl (74-100); Total Protein,Serum 6.3 g/dl (6.3-8.2)
[2024-03-24 11:11] LABS: QuantiFERON-TB Gold Plus Negative (Negative)
== END 2024-03-21 23:59 | disposition home or self-care (01) ==
LOC: LAB 08:49
PROVIDERS: PCP Nurse Practitioner Family; Visit Provider Internal Medicine
DX: M06.09 Rheumatoid arthritis without rheumatoid factor, multiple sites (principal); D84.821 Immunodeficiency due to drugs; Z79.899 Other long term (current) drug therapy
CPT/HCPCS: 36415; 80053; 85025; 85651; 86480

== ENCOUNTER 2024-04-08 08:02 | Outpatient (RCR) | payer MEDICARE, SELFPAY | END 2024-04-08 09:30 | disposition home or self-care (01) | LOC: PT 08:02 | PROVIDERS: Visit Provider Internal Medicine | DX: M06.09 Rheumatoid arthritis without rheumatoid factor, multiple sites (principal); M79.7 Fibromyalgia; M15.9 Polyosteoarthritis, unspecified; Z79.899 Other long term (current) drug therapy | CPT/HCPCS: 97163 ==

== ENCOUNTER 2024-06-21 08:56 | Outpatient (CLI) | payer MEDICARE, SELFPAY ==
[2024-06-21 09:20] LABS: Basophils % 0.4 % (0.1-2.0); Hematocrit 39.7 % (37.0-47.0); Hemoglobin 12.5 g/dL (12.2-16.2); Lymphocytes # 0.9 K/mm3 (0.7-4.5); Mean Corpuscular HGB Conc 31.6 g/dL (31.8-35.4); Mean Corpuscular Hemoglobin 31.8 pg (27.0-31.2); Mean Corpuscular Volume 100.7 fl (81-99); Mean Platelet Volume 8.8 fl (7.4-10.4); Monocytes # 0.4 K/mm3 (0.1-1.0); Monocytes % 7.8 % (1.7-9.3); Neutrophils % 74.7 % (37.0-80.0); Platelet Count 235 K/mm3 (142-424); Red Blood Count 3.94 M/mm3 (4.20-5.40); White Blood Count 5.4 K/mm3 (4.8-10.8)
[2024-06-21 10:11] LABS: Alanine Aminotransferase 18 U/L (12-78); Albumin Level 3.6 g/dl (3.5-5.0); Albumin/Globulin Ratio 1.4 (1.1-1.8); Alkaline Phosphatase 96 U/L (38-126); Anion Gap 6.1 mEq/L (5-15); Aspartate Amino Transferase 28 U/L (14-36); Bilirubin,Total 0.6 mg/dl (0.2-1.3); Blood Urea Nitrogen 9 mg/dl (7-17); Calcium 9.1 mg/dl (8.4-10.2); Carbon Dioxide 30 mmol/L (22.0-30.0); Chloride 104 mmol/L (98-107); Chol/HDL Ratio 2.4 (1-3.5); Cholesterol 181 mg/dl (140-200); Estimated Glomerular Filt Rate 99 ml/min (>60); GFR (African American) 120 ML/MIN (>60); Globulin 2.5 g/dL (1.3-3.2); Glucose 88 mg/dl (74-100); HDL Cholesterol 77 mg/dl (40-60); Potassium 4.1 mmoL/L (3.5-5.1); Sodium 136 mmol/L (136-145); Total Protein,Serum 6.1 g/dl (6.3-8.2); Triglycerides 67 mg/dl (30-150); VLDL Cholesterol 13 mg/dL (0-40)
[2024-06-21 10:13] LABS: Erythrocyte Sedimentation Rate 33 mm/hr (0-30)
[2024-06-21 10:23] LABS: C-Reactive Protein 4.1 mg/L (0-4); Direct LDL Cholesterol 69.19 mg/dL (100-129)
== END 2024-06-21 23:59 | disposition home or self-care (01) ==
LOC: LAB 08:57
PROVIDERS: PCP Nurse Practitioner Family; Visit Provider Internal Medicine
DX: Z79.899 Other long term (current) drug therapy (principal); M06.09 Rheumatoid arthritis without rheumatoid factor, multiple sites; Z13.220 Encounter for screening for lipoid disorders
CPT/HCPCS: 36415; 80053; 80061; 85025; 85651; 86140

== ENCOUNTER 2024-08-20 12:13 | Outpatient (CLI) | payer MEDICARE, SELFPAY ==
--- NOTE | 2024-08-20 12:14 | MM_ITS ---
PROCEDURE INFORMATION: Exam: MG Bilateral Screening 3D Mammography Exam date and time: 08/20/2024 12:51 PM Age: 68 years old Clinical indication: Screening examination TECHNIQUE: Imaging protocol: Bilateral Screening tomosynthesis and 2D mammography including computer-aided detection (CAD) when performed. COMPARISON: 1. MG MM DIG MAMM BI DX W/CAD 09/14/2022 1:34 PM 2. MG MM DIG SCREENING MAMM BI W/CAD 01/12/2021 4:37 PM FINDINGS: MAMMOGRAPHY: Breast composition: There are scattered areas of fibroglandular density. Mass: None. Architectural distortion: None. Calcifications: No suspicious calcifications. Asymmetric density: None. Skin thickening: None. Axillary adenopathy: None. IMPRESSION: No mammographic evidence of malignancy. Annual screening is recommended unless otherwise clinically indicated. ASSESSMENT: BI-RADS Category 1: Negative.
== END 2024-08-20 23:59 | disposition home or self-care (01) ==
LOC: RAD 12:13
PROVIDERS: PCP Nurse Practitioner Family; Visit Provider Nurse Practitioner Family
DX: Z12.31 Encounter for screening mammogram for malignant neoplasm of breast (principal)
CPT/HCPCS: 77063; 77067

== ENCOUNTER 2024-10-31 11:11 | Outpatient (CLI) | payer MEDICARE, SELFPAY ==
[2024-10-31 11:33] LABS: Basophils % 0.4 % (0.1-2.0); Hematocrit 36.7 % (37.0-47.0); Hemoglobin 11.9 g/dL (12.2-16.2); Lymphocytes # 1.1 K/mm3 (0.7-4.5); Mean Corpuscular HGB Conc 32.4 g/dL (31.8-35.4); Mean Corpuscular Hemoglobin 31.3 pg (27.0-31.2); Mean Corpuscular Volume 96.6 fl (81-99); Mean Platelet Volume 9.9 fl (7.4-10.4); Monocytes # 0.5 K/mm3 (0.1-1.0); Neutrophils % 71.4 % (37.0-80.0); Platelet Count 247 K/mm3 (142-424); Red Cell Distribution Width 14.1 % (11.5-17.5); White Blood Count 5.5 K/mm3 (4.8-10.8)
[2024-10-31 12:05] LABS: Alanine Aminotransferase 20 U/L (12-78); Albumin Level 3.8 g/dl (3.5-5.0); Albumin/Globulin Ratio 1.9 (1.1-1.8); Alkaline Phosphatase 104 U/L (38-126); Anion Gap 10.9 mEq/L (5-15); Aspartate Amino Transferase 29 U/L (14-36); Bilirubin,Total 0.6 mg/dl (0.2-1.3); Blood Urea Nitrogen 8 mg/dl (7-17); Calcium 9.2 mg/dl (8.4-10.2); Carbon Dioxide 26 mmol/L (22.0-30.0); Chloride 106 mmol/L (98-107); Cholesterol 127 mg/dl (140-200); Estimated Glomerular Filt Rate 99 ml/min (>60); GFR (African American) 120 ML/MIN (>60); Glucose 80 mg/dl (74-100); HDL Cholesterol 65 mg/dl (40-60); Potassium 3.9 mmoL/L (3.5-5.1); Sodium 139 mmol/L (136-145); Total Protein,Serum 5.8 g/dl (6.3-8.2); Triglycerides 72 mg/dl (30-150); VLDL Cholesterol 14 mg/dL (0-40)
[2024-10-31 12:16] LABS: C-Reactive Protein 1.1 mg/L (0-4); Direct LDL Cholesterol 50.83 mg/dL (100-129)
[2024-10-31 12:47] LABS: Erythrocyte Sedimentation Rate 17 mm/hr (0-30)
== END 2024-10-31 23:59 | disposition home or self-care (01) ==
LOC: LAB 11:12
PROVIDERS: PCP Nurse Practitioner Family; Visit Provider Internal Medicine
DX: M06.09 Rheumatoid arthritis without rheumatoid factor, multiple sites (principal); Z79.899 Other long term (current) drug therapy; Z13.220 Encounter for screening for lipoid disorders
CPT/HCPCS: 36415; 80053; 80061; 85025; 85651; 86140

== ENCOUNTER 2024-11-26 09:37 | Outpatient (CLI) | payer MEDICARE, SELFPAY ==
--- NOTE | 2024-11-26 09:41 | XR_ITS ---
FINAL REPORT CLINICAL HISTORY: foot pain COMPARISON: 03/10/2023 FINDINGS: LEFT FOOT Three views of the left foot demonstrate postoperative changes from fusion of the second PIP joint with bony fusion now complete. There are post-ORIF changes of the fifth metatarsal with healed fracture. No hardware abnormality identified. There is mild degenerative change in the midfoot and hindfoot. The soft tissues are unremarkable. IMPRESSION: Postoperative changes with no acute findings. Reviewed, Interpreted and Dictated by Stan Ashraf MD Transcribed by Selene Pabon Authenticated and [facility]
--- NOTE | 2024-11-26 09:41 | XR_ITS ---
FINAL REPORT CLINICAL HISTORY: foot pain COMPARISON: 03/10/2023 FINDINGS: RIGHT FOOT 3 views of the right foot were obtained. There has been interval healing of the fifth metatarsal fracture. The hardware is unremarkable. Significant degenerative changes are seen in the midfoot, worse compared to the prior study. No new fracture identified. Calcaneal spurring is stable. Soft tissues are unremarkable. IMPRESSION: Healed fifth metatarsal fracture. Worsening degenerative changes. Reviewed, Interpreted and Dictated by Stan Ashraf MD Transcribed by Selene Pabon Authenticated and [facility]
== END 2024-11-26 23:59 | disposition home or self-care (01) ==
LOC: RAD 09:38
PROVIDERS: PCP Nurse Practitioner Family; Visit Provider Podiatrist
DX: M79.671 Pain in right foot (principal); M79.672 Pain in left foot; S91.302A Unspecified open wound, left foot, initial encounter; Z98.890 Other specified postprocedural states
CPT/HCPCS: 73630; 87220

== ENCOUNTER 2025-02-24 09:27 | Outpatient (CLI) | payer MEDICARE, SELFPAY ==
--- OUTSIDE RECORDS SUMMARY | 2025-02-24 09:31 | XMS_ITS | Data Portability ---
Author Organization [facility] & [place] [facility] ADMIN Address [address] [place] [id number] Assessment Encounter Date Assessment Date Assessment LastModified by Organization Details LastModified Time 05/17/2023 05/17/2023 67-year-old female with history of IBS and recent diarrhea. There has been concern over overflow stools in the setting of using Imodium. Some of this has improved with stopping imodium. She also reports recent finding of occult blood in the stool. -Will schedule EGD and colonoscopy for further evaluation of occult positive stool/irregula r bowel habits. -Will start Linzess 72 mcg p.o. daily for possible underlying constipation. [email or web address] Not available 05/17/2023 15:45:43 Plan of Treatment Reminders Order Date Submit Date Provider Last Modified By Organization Details Last Modified Time Details Appointments None recorded. Lab None recorded. Referral None recorded. Procedures None recorded. Surgeries None recorded. Imaging None recorded. Medication Orders Linzess 72 mcg capsule 023 023 [email or web address] [facility] [id number], [address] [place] [address] [place], [address], 15:37:33 Patient TargetsNo targets recorded. Patient InstructionsNo instructions recorded. Reason for Referral None Reported. Results Created Date Observation Date Name Description Value Unit Range Abnormal Flag Note LastModifiedBy Organization Detail LastModifiedTime Result Notes None recorded. Problems Name Problem SNOMED Code Status Onset Date Resolution Date Notes Provider Name and Address Organization Details Recorded Time Occult blood detected in feces 08182044 Active 2022 Kunal Cota PA-C [address], [place], [address] , [facility] 15:46:18 Irregular bowel habits 131525237 Active 2022 Kunal Cota PA-C [address], [place], [address] , [facility] & [place] 3 15:46:27 Gastroesophag eal reflux disease without esophagitis 460088368 Active 2022 Kunal Cota PA-C [address], [place], [address] , [facility] & [place] 3 15:46:35 Problem Notes None recorded. Medical Equipment None Reported. Medications Name Sig Start Date Stop Date Status Note LastModified by Organization Details LastModified Time Miralax 17 gram oral powder packet Take 5 packets 3 times a day by oral route. 2022 active Not Available Not Available Not Avai lable amoxicillin 500 mg capsule 05/17 completed Not Available Not Available Not Available atorvastatin 40 mg tablet TAKE ONE TABLET BY MOUTH EVERY DAY active Not Available Not Available No t Available metformin 500 mg tablet 05/17 completed Not Available Not Available Not Available prednisone 20 mg tablet active Not Available Not Available Not Available gabapentin 400 mg capsule active Not Available Not Available Not Available prednisone 5 mg tablet 05/17 completed Not Available Not Available Not Available venlafaxine ER 150 mg capsule,exte nded release 24 hr active Not Available Not Available Not Available aspirin 81 mg tablet,delay ed release TAKE ONE TABLET BY MOUTH EVERY DAY active Not Available Not Available No t Available amitriptylin e 50 mg tablet active Not Available Not Available Not Available amoxicillin 500 mg tablet 05/17 completed Not Available Not Available Not Available amitriptylin e 25 mg tablet active Not Available Not Available Not Available cephalexin 500 mg capsule 05/17 completed Not Available Not Available Not Available nystatin 100,000 unit/gram topical cream 05/17 completed Not Available Not Available Not Available lisinopril 10 mg tablet TAKE ONE TABLET BY MOUTH EVERY DAY active Not Available Not Available No t Available gabapentin 300 mg capsule active Not Available Not Available Not Available omeprazole 20 mg capsule,lina yed release active Not Available Not Available Not Available zolpidem 5 mg tablet active Not Available Not Available No t Available albuterol sulfate HFA 90 mcg/actuatio n aerosol inhaler active Not Available Not Available Not Available ondansetron 4 mg disintegrati ng tablet active Not Available Not Available No t Available etodolac 500 mg tablet active Not Available Not Available No t Available fluticasone propionate 50 mcg/actuatio n nasal spray,suspen kedar 05/17 completed Not Available Not Available Not Available atenolol 50 mg tablet active Not Available Not Available No t Available nabumetone 500 mg tablet active Not Available Not Available Not Available oxycodone 5 mg tablet 05/17 completed Not Available Not Available Not Available aripiprazole 5 mg tablet active Not Available Not Available Not Available Nyamyc 100,000 unit/gram topical powder active Not Available Not Available Not Available Linzess 72 mcg capsule Take 1 capsule every day by oral route for 30 days. active Not Available Not Available No t Available Ozempic 0.25 mg or 0.5 mg (2 mg/1.5 mL) subcutaneous pen injector 05/17 completed Not Available Not Available Not Available Ozempic 0.25 mg or 0.5 mg (2 mg/3 mL) subcutaneous pen injector 05/17 completed Not Available Not Available Not Available Vitals Date Recorded Body height Body mass index (BMI) Body weight Body temperature Heart rate Oxygen saturation Oxygen saturation in Arterial blood by Pulse oximetry Systolic blood pressure Diastolic blood pressure Provider Name and Address Organization Details Last Updated DateTime 157.48 cm 49.8 kg/m2 461105. 84 g 98.1 [degF] 66 /min 97 % 97 % 161 mm[Hg] 97 mm[Hg] Angie PALAFOX [facility] & [place] 10:39:02 Social History Question Answer Notes LastModified by Organizat ion Details LastModified Time Tobacco Smoking Status Never Smoker VIVIENNE Hernandez [facility] & [place] 05/17/2023 10:37:52 What Is Your Level Of Caffeine Consumption? Moderate [email or web address] Information not available 05/17/2023 Sex: Unknown Functional Status Question Answer Note LastModified by Organizat ion Details LastModified Time Do you use any illicit or recreational drugs? No [email or web address] Information not available 05/17/2023 Do you or have you ever used any other forms of tobacco or nicotine? No [email or web address] Information not available 05/17/2023 What is your level of alcohol consumption? None [email or web address] Information not available 05/17/2023 Mental Status None recorded. Family History Relationship Description Onset Age of this Age Resolved Age Notes LastModified by Organization Details LastModified Time Father Hypertensive disorder [email or web address] Not available 11/2022 10:38:17 Mother Hypertensive disorder [email or web address] Not available 11/2022 10:38:21 Medical History No medical history recorded. Gynecological HistoryNo gynecological history recorded. Obstetrics History GPAL:G 0 P 0 0 0 0 Past Encounters Encounter ID Performer Location Encounter Start Date Encounter Closed Date Diagnosis/Indication Diagnosis SNOMED-CT Code Diagnosis ICD10 Code Diagnosis Note [id number] Kunal Cota [facility]C [facility] [address] [address] 05/17/2023 09:56:15 05/17/2023 11:31:41 Chronic idiopathic constipation 71759271 K59.04 History of bariatric surgical procedure 176840971 Z98.84 History of polyp of colon 728792538 Z86.010 Occult blo od detected in feces 46133683 R19.5 Irregular bowel habits 930292408 R19.4 Gastroesop hageal reflux disease without esophagitis 996059662 K21.9 Health Concerns Section Related Observation LastModified by Organization Detai ls LastModified Time None Recorded Concern Status LastModified by Organization Details LastModified Time None Recorded Advance Directives Directive None Recorded Payers Insurance Date Sequence Insurance Name Policy Number Policy Hussein Covered Member ID Hussein Member ID Guarantor Name 06/29/2023 1 [place]MEDICARE REPLACEMENT REGIONAL O) [id number] Kassandra Manning [id number] Kassandra Manning Notes Date Note Type Note Provider Name and Address Organization Details Recorded Time 05/17/2023 text/html Ms. Manning is a pleasant 67-year-old female with history of IBS, peptic ulcers, colon polyps, cholecystectomy, and unspecified remote bariatric surgery who was referred by Aye Pino APRN for evaluation of diarrhea and recent stool finding of occult positive blood. She reports a family history of Crohn's disease in her son. She notes a hisory of constipation, but developed diarrhea a few months ago. She has been taking Imodium and recent experiencing fecal soiling/leakage. She was instructed by her PCP to stop the Imodium. She is starting to have more formed BMs but still is having to wear depends. She denies melena or hematochezia. She reports occasional heartburn for which she is using Omeprazole with good effect. Kunal Cota PA-C [address], [place], [address], [facility] [place] [facility] [place] & [place] 05/17/2023 15:46:54 OBGyn Episode No OBEpisode recorded.
[2025-02-24 10:12] LABS: Basophils % 0.5 % (0.1-2.0); Eosinophils % 0.2 % (0.1-12.0); Hematocrit 36.8 % (37.0-47.0); Hemoglobin 11.9 g/dL (12.2-16.2); Immature Granulocytes # 0.01 10^3uL; Immature Granulocytes % 0.2 %; Lymphocytes # 1.2 K/mm3 (0.7-4.5); Lymphocytes % 21.8 % (10-50); Mean Corpuscular HGB Conc 32.3 g/dL (31.8-35.4); Mean Corpuscular Hemoglobin 31.3 pg (27.0-31.2); Mean Corpuscular Volume 96.8 fl (81-99); Monocytes # 0.6 K/mm3 (0.1-1.0); Monocytes % 11.7 % (1.7-9.3); Neutrophils # 3.6 K/mm3 (1.8-7.8); Neutrophils % 65.6 % (37.0-80.0); Nucleated Red Blood Cells # 0 10^3/uL; Nucleated Red Blood Cells % 0 %; Platelet Count 263 K/mm3 (142-424); Red Cell Distribution Width 13.8 % (11.5-17.5); Red Cell Distribution Width-SD 49.3 fL; White Blood Count 5.5 K/mm3 (4.8-10.8)
[2025-02-24 10:37] LABS: Alanine Aminotransferase 14 U/L (12-78); Albumin Level 3.9 g/dl (3.5-5.0); Albumin/Globulin Ratio 1.7 (1.1-1.8); Alkaline Phosphatase 89 U/L (38-126); Anion Gap 5.8 mEq/L (5-15); Aspartate Amino Transferase 26 U/L (14-36); Bilirubin,Total 0.7 mg/dl (0.2-1.3); Blood Urea Nitrogen 12 mg/dl (7-17); Calcium 9.2 mg/dl (8.4-10.2); Carbon Dioxide 33 mmol/L (22.0-30.0); Chloride 104 mmol/L (98-107); Estimated Glomerular Filt Rate 83 ml/min (>60); GFR (African American) 100 ML/MIN (>60); Globulin 2.3 g/dL (1.3-3.2); Glucose 89 mg/dl (74-100); Potassium 3.8 mmoL/L (3.5-5.1); Sodium 139 mmol/L (136-145); Total Protein,Serum 6.2 g/dl (6.3-8.2)
[2025-02-24 10:42] LABS: C-Reactive Protein 9.1 mg/L (0-4)
[2025-02-24 10:48] LABS: Erythrocyte Sedimentation Rate 48 mm/hr (0-30)
== END 2025-02-24 23:59 | disposition home or self-care (01) ==
LOC: LAB 09:29
PROVIDERS: PCP Nurse Practitioner Family; Visit Provider Internal Medicine
DX: M06.09 Rheumatoid arthritis without rheumatoid factor, multiple sites (principal); Z79.899 Other long term (current) drug therapy
CPT/HCPCS: 36415; 80053; 85025; 85651; 86140

== ENCOUNTER 2025-08-11 12:41 | Outpatient (CLI) | payer MEDICARE, SELFPAY ==
--- NOTE | 2025-08-11 12:45 | XR_ITS ---
FINAL REPORT CLINICAL HISTORY: FEVER cough soa green sputum FINDINGS: 2 views of the chest were obtained . The heart is normal in size. The mediastinum is within normal limits. The lungs are clear. There is no pneumothorax. Osseous structures are unremarkable. IMPRESSION: No acute cardiopulmonary process. Reviewed, Interpreted and Dictated by Isaías Barrera MD Transcribed by Linh Mercer Authenticated and [facility]
[2025-08-11 14:44] LABS: Coronavirus 19, PCR Not Detected (NotDetected); Influenza A, PCR Not Detected (NotDetected); Influenza B, PCR Not Detected (NotDetected)
[2025-08-11 15:27] LABS: Hematocrit 39.0 % (37.0-47.0); Hemoglobin 12.7 g/dL (12.2-16.2); Immature Granulocytes % 0.2 %; Mean Corpuscular HGB Conc 32.6 g/dL (31.8-35.4); Mean Corpuscular Hemoglobin 31.8 pg (27.0-31.2); Mean Corpuscular Volume 97.7 fl (81-99); Nucleated Red Blood Cells % 0 %; Platelet Count 255 K/mm3 (142-424); Red Blood Count 3.99 M/mm3 (4.20-5.40); Red Cell Distribution Width-SD 47.9 fL; White Blood Count 8.5 K/mm3 (4.8-10.8)
[2025-08-11 17:14] LABS: Alanine Aminotransferase 49 U/L (12-78); Albumin Level 3.2 g/dl (3.5-5.0); Albumin/Globulin Ratio 1.2 (1.1-1.8); Alkaline Phosphatase 117 U/L (38-126); Anion Gap 10.2 mEq/L (5-15); Aspartate Amino Transferase 51 U/L (14-36); Bilirubin,Total 0.7 mg/dl (0.2-1.3); Blood Urea Nitrogen 12 mg/dl (7-17); Calcium 9.2 mg/dl (8.4-10.2); Carbon Dioxide 27 mmol/L (22.0-30.0); Chloride 103 mmol/L (98-107); Creatinine,Serum 0.70 mg/dl (0.52-1.04); Estimated Glomerular Filt Rate 83 ml/min (>60); GFR (African American) 100 ML/MIN (>60); Globulin 2.7 g/dL (1.3-3.2); Glucose 139 mg/dl (74-100); Potassium 4.2 mmoL/L (3.5-5.1); Sodium 136 mmol/L (136-145); Total Protein,Serum 5.9 g/dl (6.3-8.2)
== END 2025-08-11 23:59 | disposition home or self-care (01) ==
LOC: RAD 12:42
PROVIDERS: PCP Nurse Practitioner Family; Visit Provider Nurse Practitioner Family
DX: R50.9 Fever, unspecified (principal); R05.9 Cough, unspecified; R06.02 Shortness of breath
CPT/HCPCS: 36415; 71046; 80053; 85025; 87636